=== PATIENT | male | born 1945 | race Caucasian/White ===

== ENCOUNTER 2017-07-09 14:11 | Emergency (ER) | payer MEDICARE, OTHER ==
[2017-07-09] MEDS ORDERED: TETRACAINE HCL 0.5% OPH SOLN 2 ML OS ONE (15:40)
--- NOTE | 2017-07-09 16:20 | ER Document Report ---
ED Eye Complaint - General Chief Complaint: Redness of Eye Stated Complaint: LEFT EYE PAIN Time Seen by Provider: 07/09/17 15:15 Mode of Arrival: Ambulatory Information source: Patient Notes: 71-year-old male presents to ED for redness to the left eye with discomfort in the left eye. He states that started yesterday. Hurts when he blinks his eye TRAVEL OUTSIDE OF THE [place] IN LAST 30 DAYS: No - HPI Onset: Yesterday Eye location: Left Injury: No Occurred at: Home Quality of pain: Burning Severity: Mild Pain Level: 1 Associated symptoms: Burning - Slight, Foreign body sensation - Related Data Allergies/Adverse Reactions: morphine Allergy (Verified 07/09/17 14:12) Past Medical History - General Information source: Patient - Social History Smoking Status: Former Smoker Cigarette use (# per day): No Chew tobacco use (# tins/day): No Smoking Education Provided: No Frequency of alcohol use: None Drug Abuse: None Lives with: Family Family History: DM, Hypertension Patient has suicidal ideation: No Patient has homicidal ideation: No - Past Medical History Cardiac Medical History: Reports: Hx Hypertension Pulmonary Medical History: Reports: None EENT Medical History: Reports: None Endocrine Medical History: Reports: Hx Diabetes Mellitus Type 2 Renal/ Medical History: Reports: None Malignancy Medical History: Reports Other - throat GI Medical History: Reports: None Musculoskeltal Medical History: Reports Hx Arthritis Psychiatric Medical History: Reports: Hx Bipolar Disorder - ptsd, Hx Post Traumatic Stress Disorder Traumatic Medical History: Reports: None Infectious Medical History: Reports: None Past Surgical History: Reports: Hx Cholecystectomy - Immunizations Immunizations up to date: Yes Review of Systems - Review of Systems Constitutional: No symptoms reported EENT: Eye pain - red swollen Cardiovascular: No symptoms reported Respiratory: No symptoms reported Gastrointestinal: No symptoms reported Genitourinary: No symptoms reported Male Genitourinary: No symptoms reported Musculoskeletal: No symptoms reported Skin: No symptoms reported Hematologic/Lymphatic: No symptoms reported Neurological/Psychological: No symptoms reported -: Yes All other systems reviewed and negative Physical Exam - Vital signs Vitals: Temp Pulse Resp BP Pulse Ox 98.5 F 64 16 144/68 H 98 07/09/17 14:19 07/09/17 14:19 07/09/17 14:19 07/09/17 14:19 07/09/17 14:19 Interpretation: Normal - General General appearance: Appears well, Alert - HEENT Head: Normocephalic, Atraumatic Eyes: Normal Conjunctiva: Injected. No: Purulent discharge Cornea: Corneal abrasion, Flourescein stain uptake Eyelashes: Normal. No: Matted, Singed Pupils: PERRL Ears: Normal External canal: Normal Tympanic membrane: Normal Hearing loss: Left Sinus: Normal Nasal: Normal Mouth/Lips: Normal Mucous membranes: Normal Pharynx: Normal Neck: Normal - Respiratory Respiratory status: No respiratory distress Chest status: Nontender Breath sounds: Normal Chest palpation: Normal - Cardiovascular Rhythm: Regular Heart sounds: Normal auscultation Murmur: No - Abdominal Inspection: Normal Distension: No distension Bowel sounds: Normal Tenderness: Nontender Organomegaly: No organomegaly - Back Back: Normal, Nontender - Extremities General upper extremity: Normal inspection, Nontender, Normal color, Normal ROM , Normal temperature General lower extremity: Normal inspection, Nontender, Normal color, Normal ROM , Normal temperature, Normal weight bearing. No: Bina's sign - Neurological Neuro grossly intact: Yes Cognition: Normal Orientation: AAOx4 Mark Coma Scale Eye Opening: Spontaneous [place] Coma Scale Verbal: Oriented Mark Coma Scale Motor: Obeys Commands [place] Coma Scale Total: 15 Speech: Normal Motor strength normal: LUE, RUE, LLE, RLE Sensory: Normal - Psychological Associated symptoms: Normal affect, Normal mood - Skin Skin Temperature: Warm Skin Moisture: Dry Skin Color: Normal Course - Vital Signs Vital signs: Temp Pulse Resp BP Pulse Ox 97.9 F 59 L 16 152/79 H 99 07/09/17 16:56 07/09/17 16:56 07/09/17 14:19 07/09/17 16:56 07/09/17 16:56 Discharge - Discharge Clinical Impression: Corneal abrasion Qualifiers: Encounter type: initial encounter Laterality: left Qualified Code(s): S05.02XA - Injury of conjunctiva and corneal abrasion without foreign body, left eye, initial encounter Condition: Stable Disposition: HOME, SELF-CARE Additional Instructions: Corneal Abrasion You have a corneal abrasion, a scratch on the surface of the eye. The pain of a corneal abrasion feels like a sharp particle in the eye. Usually, antibiotics are placed in the eye to prevent infection. Occasionally, medication will be placed in the eye to dilate the pupil. This is done to relieve some of your discomfort and is only temporary. Pain medication may be required. Don't drive or operate machinery until you have the use of both your eyes. The abrasion usually is healed in one or two days. A follow-up examination to confirm healing is recommended. Call the doctor or return at once if you develop severe pain, decreasing vision, eye swelling, or purulent drainage. EYEDROP USE: Eyedrops are most easily applied by pulling down on the cheek just below the lower eyelid. The lower lid will pop out to form a pouch into which you can drop the medicine. A small brief sting is not unusual, especially if the eye is reddened and irritated already. Use the drops exactly as recommended. You should see the doctor at once if there is a decrease in vision, swelling of the eye, or an increase in discomfort. ANTIBIOTIC THERAPY: You have been given an antibiotic prescription. It's important that you take all the medication, unless instructed otherwise by your physician. Failure to complete the entire course can result in relapse of your condition. Common side effects of antibiotics include nausea, intestinal cramping, or diarrhea. Women may develop vaginal yeast infections, and babies can get yeast (thrush) in the mouth following the use of antibiotics. Contact your physician if you develop significant side effects from this medication. Allergy to this antibiotic can result in hives, wheezing, faintness, or itching. If symptoms of allergy occur, stop the medication and call the doctor. FOLLOW-UP CARE: If you have been referred to a physician for follow-up care, call the physician s office for an appointment as you were instructed or within the next two days. If you experience worsening or a significant change in your symptoms, notify the physician immediately or return to the Emergency Department at any time for re-evaluation. Forms: Elevated Blood Pressure Referrals: LUDWIN SCHAEFER MD [ACTIVE STAFF] - Follow up as needed
[2017-07-09] MEDS ORDERED: POLYMYXIN B SULFATE/TMP OPH SOLN (10 ML/ER DISP) OP SCH (16:21)
[2017-07-09] MEDS ORDERED: POLYMYXIN B SULFATE/TMP OPH SOLN 10 ML ONE (16:47)
[2017-07-09 17:01] VITALS: BP 152/79
== END 2017-07-09 17:01 | disposition home or self-care (01) ==
LOC: ER 14:11
DX: S05.02XA Injury of conjunctiva and corneal abrasion without foreign body, left eye, initial encounter (principal); X58.XXXA Exposure to other specified factors, initial encounter; I10 Essential (primary) hypertension; E11.9 Type 2 diabetes mellitus without complications; Z87.891 Personal history of nicotine dependence; Z88.5 Allergy status to narcotic agent
CPT/HCPCS: 99283; J3490

== ENCOUNTER 2017-12-01 18:51 | Emergency (ER) | payer MEDICARE ==
[2017-12-01] MEDS ORDERED: IPRATROPIUM/ALBUTEROL 0.5-2.5 MG/3 ML AMPUL NEB ONE (19:20)
[2017-12-01 19:22] VITALS: BP 136/62
--- NOTE | 2017-12-01 19:24 | ER Document Report ---
ED Medical Screen (RME) - General Chief Complaint: Cough Stated Complaint: CONGESTION/COUGH Time Seen by Provider: 12/01/17 19:20 Mode of Arrival: Ambulatory Information source: Patient Notes: 72-year-old male with a history of Type2 DM, tongue cancer, bipolar disorder presents with complaint of cough, nasal congestion and wheezing for 1 week. is here with similar symptoms. He denies any fever, chills, shortness of breath, chest pain. Have greeted and performed a rapid initial assessment of this patient a comprehensive ED assessment and evaluation of the patient, analysis of test results and completion of medical decision making will be conducted by an additional ED provider. PHYSICAL EXAMINATION: GENERAL: Well-appearing, well-nourished and in no acute distress. LUNGS: No respiratory distress, no wheezing Musculoskeletal: Normal range of motion NEUROLOGICAL: Normal speech, normal gait. PSYCH: Normal mood, normal affect. SKIN: Warm, Dry, normal turgor, no rashes or lesions noted. TRAVEL OUTSIDE OF THE [place] IN LAST 30 DAYS: No - HPI Onset: Last week Onset/Duration: Gradual, Persistent Quality of pain: No pain Associated Symptoms: Cough (productive), Sinus pain/drainage Exacerbated by: Denies Relieved by: Denies Similar symptoms previously: Yes Recently seen / treated by doctor: Yes - Related Data Smoking: Quit greater than 1 year Frequency of alcohol use: None Drug Abuse: None Allergies/Adverse Reactions: morphine Allergy (Verified 12/01/17 18:55) Past Medical History - Social History Chew tobacco use (# tins/day): No Frequency of alcohol use: None Drug Abuse: None - Past Medical History Cardiac Medical History: Reports: Hx Hypertension Endocrine Medical History: Reports: Hx Diabetes Mellitus Type 2 Renal/ Medical History: Denies: Hx Peritoneal Dialysis Musculoskeltal Medical History: Reports Hx Arthritis Psychiatric Medical History: Reports: Hx Bipolar Disorder - ptsd, Hx Post Traumatic Stress Disorder Past Surgical History: Reports: Hx Cholecystectomy - Immunizations Immunizations up to date: Yes Physical Exam - Vital signs Vitals: Temp Pulse Resp BP Pulse Ox 98.4 F 81 16 138/88 H 96 12/01/17 19:07 12/01/17 19:07 12/01/17 19:07 12/01/17 19:07 12/01/17 19:07 Course - Vital Signs Vital signs: Temp Pulse Resp BP Pulse Ox 98.4 F 81 16 138/88 H 96 12/01/17 19:07 12/01/17 19:07 12/01/17 19:07 12/01/17 19:07 12/01/17 19:07
--- NOTE | 2017-12-01 19:39 | RADIOLOGY REPORT (SQ) ---
EXAM DESCRIPTION: CHEST 2 VIEWS COMPLETED DATE/TIME: 12/01/2017 7:31 pm REASON FOR STUDY: cough wheezing COMPARISON: None. EXAM PARAMETERS: NUMBER OF VIEWS: two views TECHNIQUE: Digital Frontal and Lateral radiographic views of the chest acquired. RADIATION DOSE: NA LIMITATIONS: none FINDINGS: LUNGS AND PLEURA: No opacities, masses or pneumothorax. No pleural effusion. MEDIASTINUM AND HILAR STRUCTURES: No masses or contour abnormalities. HEART AND VASCULAR STRUCTURES: Heart normal size. No evidence for failure. BONES: No acute findings. HARDWARE: None in the chest. OTHER: No other significant finding. IMPRESSION: NO ACUTE RADIOGRAPHIC FINDING IN THE CHEST. TECHNICAL DOCUMENTATION: JOB ID: [id number] [employer]- All Rights Reserved Reading location - IP/workstation name: [email or web address]
--- NOTE | 2017-12-01 20:05 | ER Document Report ---
ED Respiratory Problem - General Chief Complaint: Cough Stated Complaint: CONGESTION/COUGH Time Seen by Provider: 12/01/17 19:20 Mode of Arrival: Ambulatory Notes: 72-year-old male with a history of Type2 DM, tongue cancer, bipolar disorder, bronchitis, presents with complaint of cough, nasal congestion and wheezing for 1 week. is here with similar symptoms. He usually has these symptoms about once a year. Denies fevers, chest pain, leg swelling, nausea or vomiting. TRAVEL OUTSIDE OF THE [place] IN LAST 30 DAYS: No - Related Data Allergies/Adverse Reactions: morphine Allergy (Verified 12/01/17 18:55) Past Medical History - General Information source: Patient - Social History Smoking Status: Former Smoker Chew tobacco use (# tins/day): No Frequency of alcohol use: None Drug Abuse: None Family History: DM, Hypertension Patient has suicidal ideation: No Patient has homicidal ideation: No - Past Medical History Cardiac Medical History: Reports: Hx Hypertension Endocrine Medical History: Reports: Hx Diabetes Mellitus Type 2 Renal/ Medical History: Denies: Hx Peritoneal Dialysis Musculoskeltal Medical History: Reports Hx Arthritis Psychiatric Medical History: Reports: Hx Bipolar Disorder - ptsd, Hx Post Traumatic Stress Disorder Past Surgical History: Reports: Hx Cholecystectomy - Immunizations Immunizations up to date: Yes Review of Systems - Review of Systems Notes: REVIEW OF SYSTEMS: CONSTITUTIONAL: -fevers, -chills EENT: -eye pain, -difficulty swallowing, +nasal congestion CARDIOVASCULAR: -chest pain, -syncope. RESPIRATORY: +cough, -SOB GASTROINTESTINAL: -abdominal pain, -nausea, -vomiting, -diarrhea GENITOURINARY: -dysuria, -hematuria MUSCULOSKELETAL: -back pain, -neck pain SKIN: -rash or skin lesions. HEMATOLOGIC: -easy bruising or bleeding. LYMPHATIC: -swollen, enlarged glands. NEUROLOGICAL: -altered mental status or loss of consciousness, -headache, - neurologic symptoms PSYCHIATRIC: -anxiety, -depression. ALL OTHER SYSTEMS REVIEWED AND NEGATIVE. Physical Exam - Vital signs Vitals: Temp Pulse Resp BP Pulse Ox 98.4 F 81 16 138/88 H 96 12/01/17 19:07 12/01/17 19:07 12/01/17 19:07 12/01/17 19:07 12/01/17 19:07 - Notes Notes: PHYSICAL EXAMINATION: GENERAL: Well-appearing, well-nourished and in no acute distress. HEAD: Atraumatic, normocephalic. EYES: Pupils equal round and reactive to light, extraocular movements intact, sclera anicteric, conjunctiva are normal. ENT: Swollen nasal turbinates with clear drainage, cobblestoning of posterior pharynx, nares patent, oropharynx clear without exudates. Moist mucous membranes. NECK: Normal range of motion, supple without lymphadenopathy LUNGS: Breath sounds clear to auscultation bilaterally and equal. Mild wheezing. HEART: Regular rate and rhythm without murmurs ABDOMEN: Soft, nontender, normoactive bowel sounds. No guarding, no rebound. No masses appreciated. EXTREMITIES: Normal range of motion, no pitting or edema. No cyanosis. NEUROLOGICAL: Cranial nerves grossly intact. Normal speech, normal gait. Normal sensory and motor exams. PSYCH: Normal mood, normal affect. SKIN: Warm, Dry, normal turgor, no rashes or lesions noted. Course - Re-evaluation Re-evalutation: Patient appears very well. Suspect his symptoms are related to allergic rhinitis and bronchitis. No signs of pneumonia on chest x-ray. Will discharge patient home with Flonase, Zyrtec instructions to use his albuterol with follow- up at his primary care physician. - Vital Signs Vital signs: Temp Pulse Resp BP Pulse Ox 98.7 F 66 14 136/62 H 97 12/01/17 19:12 12/01/17 19:12 12/01/17 19:12 12/01/17 19:12 12/01/17 19:12 - Diagnostic Test Radiology reviewed: Image reviewed, Reports reviewed Radiology results interpreted by me: CXR: NAD Discharge - Discharge Clinical Impression: Bronchitis Allergic rhinitis Qualifiers: Allergic rhinitis trigger: unspecified Allergic rhinitis seasonality: seasonal Qualified Code(s): J30.2 - Other seasonal allergic rhinitis Condition: Stable Disposition: HOME, SELF-CARE Additional Instructions: BRONCHITIS: You have acute bronchitis. This disease is an infection or inflammation of the air passageways in your lungs. Symptoms usually include cough, low grade fever, shortness of breath, and wheezing. The cough usually persists for a couple of weeks. Most cases of bronchitis get better without antibiotics. We prescribe antibiotics when we believe bacteria are damaging your airways, or if there's high risk the bronchitis will worsen into pneumonia. Increase your fluid intake. A cool mist humidifier may make your lungs more comfortable. An expectorant (cough medicine that loosens phlegm) can help. If you smoke, STOP!!! Recovery from bronchitis can be somewhat slow, but you should see improvement within a day or two. Repeated episodes of bronchitis may result in lung damage -- for example, chronic bronchitis, recurrent pneumonias, or emphysema. Call the doctor if you develop increasing fever, shortness of breath, chest pain, bloody sputum, or otherwise worsen. If you have not improved at all after several days, contact the physician. STEROID MEDICATION: You have been given an injection of or oral medicine of the cortisone/ steroid class. This medication is used to control inflammation or allergy. Dev t is usually only given for a short period of time, until the acute process subsides. There are usually no side effects from short-term use of cortisone-like medications. Some persons feel an increased sense of well-being and are not sleepy at bedtime. Long-term use of cortisone medications is best avoided, unless required for a severe condition. If your condition does not remit, or relapses after the course of corticosteroid medication, you should consult your physician. USE OF ACETAMINOPHEN (Tylenol): Acetaminophen may be taken for pain relief or fever control. It's much safer than aspirin, offering a wider range of "safe" dosages. It is safe during . Some brand names are Tylenol, Panadol, Datril, Anacin 3, Tempra, and Liquiprin. Acetaminophen can be repeated every four hours. The following are maximum recommended dosages: >89 pounds or adults 650 mg to 900 mg Acetaminophen can be repeated every four hours. Maximum dose not to exceed 4000 mg a day. SMOKING: If you smoke, you should stop smoking. The tar and chemicals in cigarette smoke are harmful. Smoking has been shown to cause: emphysema chronic bronchitis lung cancer mouth and throat cancer stomach and pancreas cancer premature aging defects In addition, smoking increases ear and lung infections in children of smokers. FOLLOW-UP CARE: If you have been referred to a physician for follow-up care, call the physician s office for an appointment as you were instructed or within the next two days. If you experience worsening or a significant change in your symptoms, notify the physician immediately or return to the Emergency Department at any time for re-evaluation. Prescriptions: Fluticasone Propionate [Flonase Nasal [place] 50 Mcg/[place] 16 gm] 1 spray NASL Q12 #1 inhaler Forms: Elevated Blood Pressure Referrals: SAMINA RODRIGUEZ MD [ACTIVE STAFF] - Follow up as needed
[2017-12-01] MEDS ORDERED: DEXAMETHASONE SOD PHOS INJ 10 MG/1 ML VIAL IM ONE (20:53)
[2017-12-01] MEDS ORDERED: CETIRIZINE 10 MG TABLET PO ONE (20:53)
== END 2017-12-01 21:27 | disposition home or self-care (01) ==
LOC: ER 18:51
DX: J40 Bronchitis, not specified as acute or chronic (principal); J30.2 Other seasonal allergic rhinitis; R05 Cough; E11.9 Type 2 diabetes mellitus without complications; R09.81 Nasal congestion; R06.2 Wheezing; I10 Essential (primary) hypertension; Z87.891 Personal history of nicotine dependence; Z85.810 Personal history of malignant neoplasm of tongue; Z88.5 Allergy status to narcotic agent
CPT/HCPCS: 94640; 99283; 96372; 71046; J1100; A9270 ×2; J7620

== ENCOUNTER 2018-02-04 13:38 | Observation (INO) | payer MEDICARE ==
--- NOTE | 2018-02-04 15:01 | ER Document Report ---
ED Medical Screen (RME) - General Chief Complaint: S/S of Possible Stroke Stated Complaint: POSSIBLE STROKE Time Seen by Provider: 02/04/18 14:56 TRAVEL OUTSIDE OF THE [place] IN LAST 30 DAYS: No - HPI Notes: 02/04/18 14:59 Patient coming in for left-sided weakness ongoing for greater than left wrist. Patient states this morning got up could not stand therefore felt. Patient does have history of tongue cancer. - Related Data Allergies/Adverse Reactions: morphine Allergy (Verified 02/04/18 13:39) Past Medical History - Past Medical History Cardiac Medical History: Reports: Hx Hypertension Endocrine Medical History: Reports: Hx Diabetes Mellitus Type 2 Renal/ Medical History: Denies: Hx Peritoneal Dialysis Musculoskeltal Medical History: Reports Hx Arthritis Psychiatric Medical History: Reports: Hx Bipolar Disorder - ptsd, Hx Post Traumatic Stress Disorder Past Surgical History: Reports: Hx Cholecystectomy - Immunizations Immunizations up to date: Yes Review of Systems - Review of Systems Constitutional: Weakness Physical Exam - Vital signs Vitals: Temp Pulse Resp BP Pulse Ox 98.3 F 79 20 116/63 98 02/04/18 13:55 02/04/18 13:55 02/04/18 13:55 02/04/18 13:55 02/04/18 13:55 - Extremities Notes: Patient with symmetrical smile in triage patient with slight weakness on the 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
--- NOTE | 2018-02-04 15:31 | RADIOLOGY REPORT (SQ) ---
EXAM DESCRIPTION: CT HEAD WITHOUT COMPLETED DATE/TIME: 02/04/2018 3:21 pm REASON FOR STUDY: left up ext weakness >24 COMPARISON: None. TECHNIQUE: Axial images acquired through the brain without intravenous contrast. Images reviewed wi th bone, brain and subdural windows. Images stored on PACS. All CT scanners at this facility use dose modulation, iterative reconstruction, and/or weight based d osing when appropriate to reduce radiation dose to as low as reasonably achievable (ALARA). [facility]: Dose Right [facility]: CareDose [facility]: Dose Right [facility]: Teradose 4D [facility]: [employer] RADIATION DOSE: CT Rad equipment meets quality standard of care and radiation dose reduction techniq ues were employed. CTDIvol: 53.2 mGy. DLP: 911 mGy-cm.mGy. LIMITATIONS: None. FINDINGS: VENTRICLES: Prominent. CEREBRUM: No mass effect. No hemorrhage. No midline shift. Areas of low density in the white matte r most likely due to chronic micro-vascular ischemic change. No evidence for acute territorial infar ction. CEREBELLUM: No hemorrhage. No alteration of density. No evidence for acute infarction. EXTRAAXIAL SPACES: Age-related involutional change. No fluid collections. ORBITS AND GLOBE: Symmetrical contour of the globes. CALVARIUM: No depressed fracture. PARANASAL SINUSES: No air-fluid level. SOFT TISSUES: No hematoma. IMPRESSION: No acute intracranial hemorrhage or acute territorial infarct. Mild chronic changes of atrophy and microvascular ischemia. EVIDENCE OF ACUTE STROKE: NO. TECHNICAL DOCUMENTATION: JOB ID: [id number] [facility] Quality ID # [id number]: Final reports with documentation of one or more dose reduction techniques (e.g., Au tomated exposure control, adjustment of the mA and/or kV according to patient size, use of iterative reconstruction technique) 2010 [employer]- All Rights Reserved Reading location - IP/workstation name: [email or web address]
--- NOTE | 2018-02-04 15:50 | RADIOLOGY REPORT (SQ) ---
EXAM DESCRIPTION: CHEST SINGLE VIEW COMPLETED DATE/TIME: 02/04/2018 3:32 pm REASON FOR STUDY: weakness COMPARISON: Chest x-ray 12/01/2017. EXAM PARAMETERS: NUMBER OF VIEWS: One view. TECHNIQUE: Single frontal radiographic view of the chest acquired. RADIATION DOSE: NA LIMITATIONS: None. FINDINGS: LUNGS AND PLEURA: There is right perihilar airspace opacity. No sizable pleural effusion or pneumothorax. MEDIASTINUM AND HILAR STRUCTURES: Contour within normal limits. HEART AND VASCULAR STRUCTURES: Heart normal in size. Normal vasculature. BONES: Multilevel degenerative changes are noted within the spine. HARDWARE: None in the chest. IMPRESSION: Right perihilar airspace opacity, may be secondary to pneumonia. Radiographic followup recommended to ensure complete resolution and exclude a different etiology. TECHNICAL DOCUMENTATION: JOB ID: [id number] 2010 [employer]- All Rights Reserved Reading location - IP/workstation name: [email or web address]
[2018-02-04] MEDS ORDERED: CEFTRIAXONE INJ 1000 MG VIAL IV ONE (16:12)
--- NOTE | 2018-02-04 16:16 | ER Document Report ---
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 Patient since then has had left-sided weakness to the left upper extremity. 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 Patient 's family states that he had confusion after this episode yesterday that has gradually started to resolve and return to his normal baseline today. states that he does have some memory issues after treatment of tongue cancer with radiation. Patient's states that his confusion yesterday was not normal for him. Patient additionally has had a cough for the past 2 weeks. Patient was placed on amoxicillin 5 days ago but only took it for 2 days and then refused to take any more. Patient denies any chest pain, back pain headache or any dizzy symptoms at this time. Patient did have an episode of vomiting yesterday when this episode occurred. Patient's last known well was prior to 10 AM yesterday. TRAVEL OUTSIDE OF THE [place] IN LAST 30 DAYS: No - HPI Patient complains to provider of: Falling, Paresthesia - Left upper arm, Weakness - Left hand assistant finance director Onset: Yesterday Awoke with symptoms: No Symptoms are: Constant Duration: Continues in ED Quality of pain: No pain Pain Level: Denies Loss of consciousness: No loss of consciousness Baseline Cognitive: Memory loss Baseline Gait: Walks w/o assistance Alert To: Name/Voice Patient Orientation: Person, Place, Time, Events New weakness: LUE Altered sensation: LUE Vision problem/glaucoma: No Associated symptoms: Dizzy - Now resolved. denies: Chest pain, Back pain, Involuntary movements, Lightheadedness, Vomiting Similar symptoms previously: No Recently seen / treated by doctor: No - Related Data Allergies/Adverse Reactions: morphine Allergy (Verified 02/04/18 13:39) Past Medical History - General Information source: Patient - Social History Smoking Status: Former Smoker Chew tobacco use (# tins/day): No Frequency of alcohol use: Occasional Drug Abuse: None Lives with: Family Family History: DM, Hypertension Patient has suicidal ideation: No Patient has homicidal ideation: No - Past Medical History Cardiac Medical History: Reports: Hx Hypertension Endocrine Medical History: Reports: Hx Diabetes Mellitus Type 2 Renal/ Medical History: Denies: Hx Peritoneal Dialysis Malignancy Medical History: Reports Other - Tongue cancer Musculoskeletal Medical History: Reports Hx Arthritis Psychiatric Medical History: Reports: Hx Bipolar Disorder - ptsd, Hx Post Traumatic Stress Disorder Past Surgical History: Reports: Hx Abdominal Surgery - G TUBE, Hx Cholecystectomy - Immunizations Immunizations up to date: Yes Review of Systems - Review of Systems Constitutional: Recent illness - Cough 2 weeks. denies: Fever EENT: No symptoms reported Cardiovascular: Dizziness - Episode of dizziness yesterday. denies: Chest pain Respiratory: Cough. denies: Short of breath Gastrointestinal: Vomiting - 1 episode yesterday. denies: Abdominal pain, Diarrhea Genitourinary: No symptoms reported Male Genitourinary: No symptoms reported Musculoskeletal: No symptoms reported. denies: Back pain Skin: No symptoms reported Hematologic/Lymphatic: No symptoms reported Neurological/Psychological: Confusion - Episode of confusion that gradually improved today, Weakness - Left assistant finance director, Numbness - Left upper extremity Physical Exam - Vital signs Vitals: Temp Pulse Resp BP Pulse Ox 98.3 F 79 20 116/63 98 02/04/18 13:55 02/04/18 13:55 02/04/18 13:55 02/04/18 13:55 02/04/18 13:55 - General General appearance: Appears well, Alert In distress: None - HEENT Head: Normocephalic, Atraumatic Eyes: Normal Conjunctiva: Normal Extraocular movements intact: Yes Nasal: Normal Mouth/Lips: Other - edentulous Pharynx: Normal Neck: Normal, Supple. No: Lymphadenopathy - Respiratory Respiratory status: No respiratory distress Chest status: Nontender Breath sounds: Nonproductive cough. No: Rales, Rhonchi, Stridor, Wheezing Chest palpation: Normal - Cardiovascular Rhythm: Regular Heart sounds: S1 appreciated, S2 appreciated - Abdominal Inspection: Normal Distension: No distension Bowel sounds: Normal Tenderness: Nontender Organomegaly: No organomegaly - Back Back: Normal, Nontender. No: CVA tenderness, Vertebra tenderness - Extremities General upper extremity: Normal inspection, Normal ROM General lower extremity: Normal inspection, Normal ROM - Neurological Neuro grossly intact: Yes Cognition: Other - occasional memory lapses [place] Coma Scale Eye Opening: Spontaneous Mark Coma Scale Verbal: Oriented Mark Coma Scale Motor: Obeys Commands Mark Coma Scale Total: 15 Speech: Normal. No: Dysarthria Cranial nerves: Normal. No: Facial palsy Cerebellar coordination: Heel-che, Finger-nose rhombey Motor strength normal: LUE, RUE, LLE, RLE Additional motor exam normals: No: Equal assistant finance director - left assistant finance director weak Sensory: Altered light touch - LUE - Psychological Associated symptoms: Normal affect, Normal mood - Skin Skin Temperature: Warm Skin Moisture: Dry Skin Color: Other - abrasion to LUE Course - Re-evaluation Re-evalutation: 02/04/18 17:[address] Richards guarding patient presentation and diagnostic evaluation. Recommends placing patient on Rocephin and azithromycin versus Levaquin given concern about risk with fluoroquinolones. Agrees with plan for admission to further evaluate for possible CVA. 02/04/18 17:53 Consulted with CINTHIA Espinoza who agrees to accept patient for admission to IMCU as an observation to Dr. Bethea. - Vital Signs Vital signs: Temp Pulse Resp BP Pulse Ox 98.3 F 79 20 116/63 98 02/04/18 13:55 02/04/18 13:55 02/04/18 13:55 02/04/18 13:55 02/04/18 13:55 - Laboratory Result Diagrams: 02/04/18 15:27 02/04/18 15:27 Laboratory results interpreted by me: 02/04/18 18:32 Labs- Entire Visit 02/04/18 02/04/18 02/04/18 15:27 15:27 15:27 WBC 17.5 H RBC 3.99 L Hgb 12.7 L Hct 36.6 L MCV 92 MCH 31.7 MCHC 34.6 RDW 14.2 H Plt Count 237 Seg Neutrophils % 88.3 H Lymphocytes % 5.5 L Monocytes % 5.1 Eosinophils % 0.9 Basophils % 0.2 Absolute Neutrophils 15.5 H Absolute Lymphocytes 1.0 Absolute Monocytes 0.9 Absolute Eosinophils 0.2 Absolute Basophils 0.0 PT 15.1 INR 1.13 Sodium 143.7 Potassium 3.8 Chloride 103 Carbon Dioxide 23 Anion Gap 18 BUN 16 Creatinine 1.11 Est GFR ( Amer) > 60 Est GFR (Non-Af Amer) > 60 Glucose 219 H Calcium 9.5 Total Bilirubin 1.4 H Direct Bilirubin 0.5 H Neonat Total Bilirubin Not Reportable Neonat Direct Bilirubin Not Reportable Neonat Indirect Bili Not Reportable AST 18 ALT 19 L Alkaline Phosphatase 134 H Creatine Kinase 30 L CK-MB (CK-2) Troponin I Total Protein 8.1 Albumin 4.2 02/04/18 15:27 WBC RBC Hgb Hct MCV MCH MCHC RDW Plt Count Seg Neutrophils % Lymphocytes % Monocytes % Eosinophils % Basophils % Absolute Neutrophils Absolute Lymphocytes Absolute Monocytes Absolute Eosinophils Absolute Basophils PT INR Sodium Potassium Chloride Carbon Dioxide Anion Gap BUN Creatinine Est GFR ( Amer) Est GFR (Non-Af Amer) Glucose Calcium Total Bilirubin Direct Bilirubin Neonat Total Bilirubin Neonat Direct Bilirubin Neonat Indirect Bili AST ALT Alkaline Phosphatase Creatine Kinase CK-MB (CK-2) 0.37 Troponin I < 0.012 Total Protein Albumin - Diagnostic Test Radiology reviewed: Reports reviewed ED [employer]/Exc Criteria - Inclusion Criteria: 1: Patient presented to ED within 3 hours of acute ischemic stroke symptom onset ? -: No 2: Did baseline CT exclude intracranial hemorrhage and/or other risk factors? -: Yes 3: Is the age of the patient 18 years of age or greater? -: Yes : If any of the above questions are answered "NO" then stop, patient is not a candidate for Alteplase, : If all of the above questions are answered "YES" then continue with Exclusion Criteria. - Exclusion Criteria: 1: Is there evidence of intracranial hemorrhage on baseline CT? 2: Is there suspicion of subarachnoid hemorrhage (even if CT negative)? 3: Is there a history of serious head trauma, recent previous stroke or AL within 3 months? 4: Does the patient have a clinical presentation consistent with AL or post-AL pericarditis? 5: Is there history of intracranial hemorrhage? 6: On repeated measurement is Systolic BP greater than 185mmHg or Diastolic BP greater that 110 mmHg and is aggressive treatment needed to reduce blood pressure to these limits (e.g. constant infusion of an anti-hypertensive)? 7: Did the patient awake with stroke symptoms? 8: Has the patient had a lumbar puncture or an arterial puncture at a non- compressile site within 7 days? 9: With in the last 14 days did the patient have surgery or major trauma? 10: Is the patient or less than 2 weeks? 11: Was there any active bleeding or acute trauma? 12: Does the patient have intracranial neoplasm, arteriovenous malformation or aneurysm? 13: Does the patient have abnormal glucose (less than 50 or greater than 400mg/ dl)? Record glucose in Comment. 14: Patient has rapidly improving symptoms at the time Alteplase is to be Administered. 15: Does the patient have any risks for bleeding, including but not limited to: a.: Current use of Coumadin with PT greater than 15 seconds or INR greater than 1.7. b.: Current use of Pradaxa (Dabigatran). c.: Heparin administereed within the past 48 hours and PTT elevated. d.: Platelet count less than 100,000/mm. e.: Major surgery or serious trauma within 14 days. f.: Gastrointestinal or gynecological urinary bleeding within 14 days. g.: Myocardial Infarction (AL) within 3 months. : If the answer to any of the above questions is "YES" then stop, the patient is not a candidate for Alteplase. : If the answer to all of the above questions is "NO" then the patient may be eligible for the Administration of Alteplase. : If the patient is noted to have seizure activity at onset of Stroke symptoms; Consult Neurologist for further evaluation. - The patient is: -: Included and is eligible to receive Alteplase. *Initiate bed placement at higher level of care* Reviewed risks & benefits of thrombolytic therapy: I have reviewed the risks and benefits of thrombolytic therapy with the patient and/or his/her family. -: Excluded and not eligible to receive Alteplase for the above exclusions. -: Excluded and not eligible to receive Alteplase for other reasons (specify in comments): - Diagnosis of TIA: -: Patient presented with transient symptoms that are now resolved and no other neurologic findings are currently present. List symptoms in comments. -: Patient is NOT a candidate for tPA. -: ____(put name in comment) has been consulted for admission and continued evaluation of risk factor assessment. ED NIH Stroke Scale - NIH Stroke Scale *: 1. NIH scale should be completed with appropriate accompanying assessment tools. *: 2. The NIH should reflect what the patient is capable of doing and should not be coached by the clinician. 1a. Level of Consciousness: 0=Alert;keenly responsive -: 1=Drowsy -: 2=Obtunded -: 3=Coma/unresponsive or reflex to noxious stimuli. 1a. Responses: 0 1b. Orientation Questions: a. What month is it? -: b. How old are you? -: 0=Answers both questions correctly. -: 1=Answers one question correctly or patient is intubated or has orotracheal trauma. -: 2=Answers neither question correctly. 1b. Responses: 0 1c. Response to commands: a. Open and close eyes? -: b. Medical Center Manager and release hand? -: Credit is given despite weakness. Demonstration of task is permitted. Substitute command if hands cannot be used. -: 0=Performs both tasks correctly -: 1=Performs one task correctly -: 2=Performs neither task correctly 1c. Responses: 0 2. Gaze: Establish eye contact and instruct patient to "Follow my finger" -: 0=Normal -: 1=Partial gaze palsy. Gaze is abnormal in one or both eyes, but where forced deviation or total gaze paresis is not present. -: 2=Forced deviation or total gaze paresis. 2. Responses: 0 3. Visual Hinds: Sees fingers in all four quadrants. -: 0=No visual loss. -: 1=Partial hemianopsia. -: 2=Complete hemianopsia. -: 3=Bilateral hemianopsia (including Cortical blindness) 3. Responses: 0 4. Facial Movement: Instruct patient to: -: a. Show me your teeth -: b. Raise your eyebrows -: c. Close your eyes -: d. Smile -: 0=Normal symmetrical movement -: 1=Minor paralysis (flattened nasolabial fold, asymmetry on smiling). -: 2=Partial paralysis (total or near total paralysis of lower face). -: 3=Complete paralysis of upper and lower face 4. Responses: 0 5. Motor functions (left arm): Alternate sides and extend each arm with palms down (90 degrees if sitting or 45 degrees for supine). -: 0=No drift;limb holds for full 10 seconds. -: 1=Drift; limb holds but drifts down before full 10 seconds, but does not hit bed. -: 2=Some effort against gravity; limb cannot get to or maintain position. -: 3=No effort against gravity; limb falls. -: 4=No movement. -: UN=Amputation, joint fusion, explain in comments. 5. Responses (left arm): 0 5. Motor Functions (right arm): Alternate sides and extend each arm with palms down (90 degrees if sitting or 45 degrees for supine). -: 0=No drift;limb holds for full 10 seconds. -: 1=Drift; limb holds but drifts down before full 10 seconds, but does not hit bed. -: 2=Some effort against gravity; limb cannot get to or maintain position. -: 3=No effort against gravity; limb falls. -: 4=No movement. -: UN=Amputation, joint fusion, explain in comments. 5. Responses (right arm): 0 6. Motor Functions (left leg): With patient lying supine, alternate sides and extend each leg (30 degrees always while supine). -: 0=No drift, leg holds position for full 5 seconds -: 1=Drift; leg falls before full 5 seconds but does not hit bed. -: 2=Some effort against gravity, leg falls to bed but some effort against gravity. -: 3=No effort against gravity, leg falls to bed immediately. -: 4=No movement. -: UN=Amputation, joint fusion; explain in comments. 6. Responses (left leg): 0 6. Motor Functions (right leg): With patient lying supine, alternate sides and extend each leg (30 degrees always while supine). -: 0=No drift, leg holds position for full 5 seconds -: 1=Drift; leg falls before full 5 seconds but does not hit bed. -: 2=Some effort against gravity, leg falls to bed but some effort against gravity. -: 3=No effort against gravity, leg falls to bed immediately. -: 4=No movement. -: UN=Amputation, joint fusion; explain in comments. 6. Responses (right leg): 0 7. Limb Ataxia: With eyes open instruct patient to: -: a. "Touch your finger to your nose". -: b. "Touch your heel to your che" -: 0=Absent -: 1=Present in one limb. -: 2=Present in two limbs. -: UN=Amputation or joint fusion; explain in comments. 7. Responses: 0 8. Sensory: Test sensation using pinprick or noxious stimuli. Test as many body parts as possible. -: 0=Normal;no sensory loss -: 1=Mile to moderate sensory loss (patient feels pin prick but is less sharp on affected side). -: 2=Severe or total sensory loss. 8. Responses: 1 9. Best Language: Instruct patient to: -: a. "Describe what you see in this picture." -: b. "Name the items in this picture." -: c. "Read these sentences." -: 0=No aphasia, normal -: 1=Mild to moderate aphasia. -: 2=Severe aphasia -: 3=Mute, global aphasia, no usable speech or auditory comprehension. 9. Responses: 0 10. Articulation, Dysarthia: Instruct patient to: -: "Read these words" or "Repeat these words" -: 0=Normal -: 1=Mild to moderate; patient may slur some words but can be understood without difficulty. -: 2=Severe; patients speech so slurred as to be unintelligible in the absence of dysphasia. -: UN=Intubated or other physical barrier, explain in comments. 10. Responses: 0 11. Extinction or inattention: 0=No abnormality -: 1= Visual, tactile, auditory, spatial, or personal inattention or extinction to bilateral simulation in one or the sensory modalities. -: 2=Profound zarina-inattention or zarina-inattention to more than one modality; does not recognize own hand. 11. 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
[2018-02-04 16:22] LABS: ABSOLUTE EOSINOPHILS # (AUTO) 0.2 10^3/uL (0.0-0.6); ABSOLUTE MONOCYTES (AUTO) 0.9 10^3/uL (0.1-1.4); ABSOLUTE NEUT (AUTO) 15.5 10^3/uL (1.7-8.2); BASOPHILS % (AUTO) 0.2 % (0-2); EOSINOPHILS % (AUTO) 0.9 % (0-6); HEMATOCRIT 36.6 % (37.9-51.0); HEMOGLOBIN 12.7 g/dL (13.5-17.0); LYMPHOCYTES % (AUTO) 5.5 % (13-45); MEAN CORPUSCULAR HEMOGLOBIN 31.7 pg (27.0-33.4); MEAN CORPUSCULAR HGB CONC 34.6 g/dL (32.0-36.0); MEAN CORPUSCULAR VOLUME 92 fl (80-97); MONOCYTES % (AUTO) 5.1 % (3-13); PLATELET COUNT 237 10^3/uL (150-450); RED BLOOD COUNT 3.99 10^6/uL (4.35-5.55); RED CELL DISTRIBUTION WIDTH 14.2 % (11.5-14.0); SEGMENTED NEUTROPHILS % (AUTO) 88.3 % (42-78); TOTAL CELLS COUNTED % (AUTO) 100 %; WHITE BLOOD COUNT 17.5 10^3/uL (4.0-10.5)
[2018-02-04 16:31] LABS: INTERNATIONAL RATION (INR) 1.13; PROTHROMBIN TIME 15.1 SEC (11.4-15.4)
[2018-02-04 16:45] LABS: ALANINE AMINOTRANSFERASE 19 U/L (21-72); ALBUMIN 4.2 g/dL (3.5-5.0); ALKALINE PHOSPHATASE 134 U/L (38-126); ANION GAP 18 (5-19); ASPARTATE AMINO TRANSFERASE 18 U/L (17-59); BILIRUBIN,DIRECT 0.5 mg/dL (0.0-0.4); BILIRUBIN,TOTAL 1.4 mg/dL (0.2-1.3); BLOOD UREA NITROGEN 16 mg/dL (7-20); CALCIUM 9.5 mg/dL (8.4-10.2); CARBON DIOXIDE 23 mmol/L (22-30); CHLORIDE 103 mmol/L (98-107); CREATINE KINASE 30 U/L (55-170); GLUCOSE 219 mg/dL (75-110); POTASSIUM 3.8 mmol/L (3.6-5.0); SODIUM 143.7 mmol/L (137-145); TOTAL PROTEIN 8.1 g/dL (6.3-8.2)
[2018-02-04] MEDS ORDERED: LEVOFLOXACIN 750 MG/D5W RTU 750 MG/150 ML RTUPB IV ONE (16:50)
[2018-02-04 17:01] LABS: CREATINE KINASE MB 0.37 ng/mL (<4.55)
[2018-02-04 17:03] LABS: TROPONIN I < 0.012 ng/mL
[2018-02-04] MEDS ORDERED: AZITHROMYCIN INJ 500 MG VIAL IV ONE (17:18)
[2018-02-04] MEDS ORDERED: ONDANSETRON 4 MG TAB.RAPDIS PO PRN (18:04)
[2018-02-04] MEDS ORDERED: HYDROCODONE/ACETAMINOPHEN 5-325 MG TABLET PO PRN (18:04)
[2018-02-04] MEDS ORDERED: DOCUSATE SODIUM 100 MG CAPSULE PO PRN (18:04)
[2018-02-04] MEDS ORDERED: ACETAMINOPHEN 325 MG TABLET PO PRN (18:04)
[2018-02-04] MEDS ORDERED: DEXTROSE 40% GEL 15 GM TUBE PO PRN ×2 (18:32)
[2018-02-04] MEDS ORDERED: GLUCAGON,HUMAN RECOMB 1 MG INJ IM PRN (18:32)
[2018-02-04] MEDS ORDERED: DEXTROSE 50%-WATER 25 GM/50 ML DISP.SYRIN IV PRN ×2 (18:32)
--- NOTE | 2018-02-04 18:57 | PDOC H&P ---
History of Present Illness Admission Date/PCP: YUNI SIMENTAL MD Patient complains of: Altered mental status and left arm weakness History of Present Illness: NIDA VELASQUEZ is a 72 year old male with past medical history of essential hypertension, dyslipidemia, diabetes mellitus type 2 on insulin and 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 Patient presents to [facility]'s emergency room this afternoon complaining of episode of dizziness yesterday at 10 AM in which he fell landing on his knee. Patient since then has had left-sided weakness to the left upper extremity. 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 Patient's family states that he had confusion after this episode yesterday that has gradually started to resolve and return to his normal baseline today. states that he does have some memory issues after treatment of tongue cancer with radiation. Patient's states that his confusion yesterday was not normal for him. Patient additionally has had a cough for the past 2 weeks. Patient was placed on amoxicillin 5 days ago but only took it for 2 days and then refused to take any more. Patient denies any chest pain, back pain headache or any dizzy symptoms at this time. Patient did have an episode of vomiting yesterday when this episode occurred. Patient's last known well was prior to 10 AM yesterday. Past Medical History Cardiac Medical History: Reports: Hypertension Pulmonary Medical History: Reports: None EENT Medical History: Reports: None Neurological Medical History: Reports: None Endocrine Medical History: Reports: Diabetes Mellitus Type 2 Renal/ Medical History: Reports: None Malignancy Medical History: Reports: Other - Tongue cancer GI Medical History: Reports: None Musculoskeltal Medical History: Reports: Arthritis Skin Medical History: Reports: None Psychiatric Medical History: Reports: Bipolar Disorder - ptsd, Post Traumatic Stress Disorder Traumatic Medical History: Reports: None Hematology: Reports: None Infectious Medical History: Reports: None Past Surgical History Past Surgical History: Reports: Cholecystectomy, Other - Glossal resection PEG tube insertion Social History Information Source: Patient Lives with: Family Smoking Status: Former Smoker Last Time Smoked: Greater than 20 years ago Frequency of Alcohol Use: Occasional Hx Recreational Drug Use: No Hx Prescription Drug Abuse: No - Advance Directive Resuscitation Status: Full Code Surrogate healthcare decision maker:: Family History Family History: DM, Hypertension Parental Family History Reviewed: Yes Children Family History Reviewed: Yes Sibling(s) Family History Reviewed.: Yes Medication/Allergy Home Medications: Fluticasone Propionate [Flonase Nasal Bonifay 50 Mcg/Bonifay 16 gm] 1 spray NASL Q12 #1 inhaler 12/01/17 Allergies/Adverse Reactions: morphine Allergy (Verified 02/04/18 13:39) Review of Systems Constitutional: PRESENT: chills, fever(s) - Days ago Eyes: ABSENT: visual disturbances Ears: ABSENT: hearing changes Cardiovascular: ABSENT: chest pain, dyspnea on exertion, edema, orthropnea, palpitations Respiratory: ABSENT: cough, hemoptysis Gastrointestinal: ABSENT: abdominal pain, constipation, diarrhea, hematemesis, hematochezia, nausea, vomiting Genitourinary: ABSENT: dysuria, hematuria Musculoskeletal: ABSENT: joint swelling Integumentary: ABSENT: rash, wounds Neurological: ABSENT: abnormal gait, abnormal speech, confusion, dizziness, focal weakness, syncope Psychiatric: ABSENT: anxiety, depression, homidical ideation, suicidal ideation Endocrine: ABSENT: cold intolerance, heat intolerance, polydipsia, polyuria Hematologic/Lymphatic: ABSENT: easy bleeding, easy bruising Physical Exam Vital Signs: Temp Pulse Resp BP Pulse Ox 98.3 F 79 20 116/63 95 02/04/18 13:55 02/04/18 13:55 02/04/18 13:55 02/04/18 13:55 02/04/18 15:01 Intake & Output 02/03/18 02/04/18 02/05/18 06:59 06:59 06:59 Weight 70.307 kg General appearance: PRESENT: no acute distress, well-developed, well-nourished Head exam: PRESENT: atraumatic, normocephalic Eye exam: PRESENT: conjunctiva pink, EOMI, PERRLA. ABSENT: scleral icterus Ear exam: PRESENT: normal external ear exam Mouth exam: PRESENT: moist, tongue midline Neck exam: ABSENT: carotid bruit, JVD, lymphadenopathy, thyromegaly Respiratory exam: PRESENT: crackles, symmetrical, unlabored - left basilar crackles. ABSENT: rales, rhonchi, wheezes Cardiovascular exam: PRESENT: RRR. ABSENT: diastolic murmur, rubs, systolic murmur Pulses: PRESENT: normal dorsalis pedis pul Vascular exam: PRESENT: normal capillary refill GI/Abdominal exam: PRESENT: normal bowel sounds, soft. ABSENT: distended, guarding, mass, organolmegaly, rebound, tenderness Rectal exam: PRESENT: deferred Extremities exam: PRESENT: full ROM. ABSENT: calf tenderness, clubbing, pedal edema Musculoskeletal exam: PRESENT: ambulatory, dislocation, full ROM Neurological exam: PRESENT: alert, awake, oriented to person, oriented to place , oriented to time, oriented to situation, CN II-XII grossly intact. ABSENT: motor sensory deficit Psychiatric exam: PRESENT: appropriate affect, normal mood. ABSENT: homicidal ideation, suicidal ideation Skin exam: PRESENT: dry, intact, warm. ABSENT: cyanosis, rash Results Laboratory Results: 02/04/18 15:27 02/04/18 15:27 02/04/18 02/04/18 15:27 15:27 WBC 17.5 H RBC 3.99 L Hgb 12.7 L Hct 36.6 L MCV 92 MCH 31.7 MCHC 34.6 RDW 14.2 H Plt Count 237 Seg Neutrophils % 88.3 H Lymphocytes % 5.5 L Monocytes % 5.1 Eosinophils % 0.9 Basophils % 0.2 Absolute Neutrophils 15.5 H Absolute Lymphocytes 1.0 Absolute Monocytes 0.9 Absolute Eosinophils 0.2 Absolute Basophils 0.0 Sodium 143.7 Potassium 3.8 Chloride 103 Carbon Dioxide 23 Anion Gap 18 BUN 16 Creatinine 1.11 Est GFR ( Amer) > 60 Est GFR (Non-Af Amer) > 60 Glucose 219 H Calcium 9.5 Total Bilirubin 1.4 H AST 18 ALT 19 L Alkaline Phosphatase 134 H Total Protein 8.1 Albumin 4.2 02/04/18 02/04/18 15:27 15:27 Creatine Kinase 30 L CK-MB (CK-2) 0.37 Troponin I < 0.012 Impressions: Chest X-Ray 02/04/18 15:01 IMPRESSION: Right perihilar airspace opacity, may be secondary to pneumonia. Radiographic followup recommended to ensure complete resolution and exclude a different etiology. Head CT 02/04/18 15:01 IMPRESSION: No acute intracranial hemorrhage or acute territorial infarct. Mild chronic changes of atrophy and microvascular ischemia. EVIDENCE OF ACUTE STROKE: NO. Assessment & Plan - Diagnosis (1) CVA (cerebral vascular accident) Is this a current diagnosis for this admission?: Yes Plan: We will admit to rule out possible CVA. He has minimal left hand weaknes initial CT scan was negative. (2) Diabetes mellitus Qualifiers: Diabetes mellitus type: type 2 Is this a current diagnosis for this admission?: Yes Plan: Lantus and sliding scale insulin (3) Essential hypertension Is this a current diagnosis for this admission?: Yes Plan: Since of the present time. 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 He started on aspirin and statin (5) Left arm numbness Is this a current diagnosis for this admission?: Yes (6) Pneumonia Qualifiers: Pneumonia type: due to unspecified organism Laterality: right Lung location: unspecified part of lung Qualified Code(s): J18.9 - Pneumonia, unspecified organism Is this a current diagnosis for this admission?: Yes Plan: Right lower lobe infiltrate. His had bronchitis and pneumonia 2 weeks ago. He was started on amoxicillin 5 days ago and only take it for 2 days and stop. He states he had a fever back then but none since then. He is room air oxygen saturations 98% he is not tachycardic or hypotensive. He was started on oral Levaquin - Time Time Spent: 50 to 70 Minutes Critical Time spent with patient: 25-34 minutes Medications reviewed and adjusted accordingly: Yes Anticipated discharge: Home Within: within 24 hours
[2018-02-04] MEDS ORDERED: LEVOFLOXACIN 750 MG TABLET PO ONE (19:30)
[2018-02-04] MEDS ORDERED: INSULIN GLARGINE,HUM.REC.ANLOG 1,000 UNIT/10 ML UNIT SUBCUT SCH (22:00)
--- NOTE | 2018-02-04 22:00 | EKG REPORT ---
SEVERITY:- NORMAL ECG - SINUS RHYTHM : Confirmed by: Aj Yeager 04-Feb-2018 21:59:26
[2018-02-05] MEDS: GUAIFENESIN 600 MG TABLET.SA PO SCH ×3 (00:28→22:22)
[2018-02-05] MEDS: ATORVASTATIN CALCIUM 40 MG TABLET PO SCH ×2 (00:29→22:21)
[2018-02-05 07:56] LABS: CHOLESTEROL 154.46 mg/dL (0-200); TRIGLYCERIDES 127 mg/dL (<150)
[2018-02-05 08:08] LABS: DIRECT LDL 88 mg/dL (<100)
[2018-02-05] MEDS: LEVOFLOXACIN 750 MG TABLET PO SCH (10:48)
[2018-02-05] MEDS: ASPIRIN 325 MG TABLET, ENT COATED PO SCH (10:48)
[2018-02-05] MEDS: ENOXAPARIN SODIUM INJ 40 MG/0.4 ML DISP.SYRIN SUBCUT SCH (10:49)
[2018-02-05] MEDS ORDERED: (PENDING PHARMACY ID) (Nph, Human Insulin Isophane [Novolin N (Nph) Insulin 100 Unit/Ml] 1 SUBCUT SCH (11:00)
[2018-02-05] MEDS: INSULIN LISPRO 100 UNIT/ML 3 ML VIAL SUBCUT PRN ×2 (12:36→18:07)
[2018-02-05] MEDS ORDERED: INSULIN NPH (ISOPHANE), HUMAN 100 UNIT/ML 3 ML SUBCUT ONE (13:30)
--- NOTE | 2018-02-05 16:47 | PDOC PROGRESS REPORT ---
Subjective Progress Note for:: 02/05/18 Subjective:: Patient is seen resting in bed. He is awake, alert and oriented x 3. His is at the bedside. He states he is hungry. Nursing apparently made him n.p.o. because of difficulty taking pills last night. 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 His states he normally consumes regular liquids and soft diet at home. She notes occasional coughing after he does drink liquids. He denies any further arm numbness or weakness. He denies any further confusion. He denies any shortness breath or dyspnea at rest. Continues to have mostly nonproductive cough. Denies nausea, vomiting or abdominal pain. He denies any significant arthralgias. Remaining review of systems is negative. Reason For Visit: LEFT ARM WEAKNESS,ALTERED MENTAL STATUS Physical Exam Vital Signs: Temp Pulse Resp BP Pulse Ox 99.4 F 72 19 112/66 95 02/05/18 07:22 02/05/18 07:22 02/05/18 07:22 02/05/18 07:22 02/05/18 07:22 Intake & Output 02/04/18 02/05/18 02/06/18 06:59 06:59 06:59 Intake Total 20 Balance 20 Weight 68.1 kg General appearance: PRESENT: no acute distress, thin, well-developed, well- nourished Head exam: PRESENT: atraumatic, normocephalic Eye exam: PRESENT: conjunctiva pink, EOMI, PERRLA. ABSENT: scleral icterus Ear exam: PRESENT: normal external ear exam Mouth exam: PRESENT: moist, tongue midline Throat exam: PRESENT: post pharyngeal erythema Neck exam: ABSENT: carotid bruit, JVD, lymphadenopathy, thyromegaly Respiratory exam: PRESENT: clear to auscultation june. ABSENT: rales, rhonchi, wheezes Cardiovascular exam: PRESENT: RRR. ABSENT: diastolic murmur, rubs, systolic murmur Pulses: PRESENT: normal carotid pulses, normal radial pulses Vascular exam: PRESENT: normal capillary refill GI/Abdominal exam: PRESENT: normal bowel sounds, soft. ABSENT: distended, guarding, mass, organolmegaly, rebound, tenderness Rectal exam: PRESENT: deferred Extremities exam: PRESENT: full ROM. ABSENT: calf tenderness, clubbing, pedal edema Musculoskeletal exam: PRESENT: ambulatory, full ROM, normal inspection Neurological exam: PRESENT: alert, awake, oriented to person, oriented to place , oriented to time, oriented to situation, CN II-XII grossly intact. ABSENT: motor sensory deficit Psychiatric exam: PRESENT: appropriate affect, normal mood. ABSENT: homicidal ideation, suicidal ideation Skin exam: PRESENT: dry, intact, warm. ABSENT: cyanosis, rash Results Laboratory Results: 02/05/18 06:35 Triglycerides 127 Cholesterol 154.46 LDL Cholesterol Direct 88 VLDL Cholesterol 25.0 HDL Cholesterol 31 L 02/04/18 02/05/18 02/05/18 19:30 01:20 06:35 Troponin I < 0.012 < 0.012 < 0.012 Impressions: Chest X-Ray 02/04/18 15:01 IMPRESSION: Right perihilar airspace opacity, may be secondary to pneumonia. Radiographic followup recommended to ensure complete resolution and exclude a different etiology. Head CT 02/04/18 15:01 IMPRESSION: No acute intracranial hemorrhage or acute territorial infarct. Mild chronic changes of atrophy and microvascular ischemia. EVIDENCE OF ACUTE STROKE: NO. Assessment & Plan - Diagnosis (1) CVA (cerebral vascular accident) Is this a current diagnosis for this admission?: Yes Plan: We will admit to rule out possible CVA. CT of the head yesterday after 24 hours of symptoms showed no CVA. He does not want to have an MRI. His symptoms have completely resolved this morning. 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 His had bronchitis and pneumonia 2 weeks ago. He was started on amoxicillin 5 days ago and only take it for 2 days and stop. He states he had a fever back then but none since then. He is room air oxygen saturations 98% he is not tachycardic or hypotensive. He was started on oral Levaquin (5) Dysphagia Qualifiers: Dysphagia type: oral phase Qualified Code(s): R13.11 - Dysphagia, oral phase Is this a current diagnosis for this admission?: Yes Plan: Speech therapy consult. He has history of glossal cancer 3 years ago with resection and XRT. His does noted some difficulties with coughing after drinking. Speech therapy is recommended a cookie study for tomorrow. He does well with nectar thickened liquid and soft diet will continue this. (6) Left arm numbness Is this a current diagnosis for this admission?: Yes Plan: This is completely resolved. (7) Diabetes mellitus Qualifiers: Diabetes mellitus type: type 2 Is this a current diagnosis for this admission?: Yes Plan: Lantus and sliding scale insulin - Time Time Spent with patient: 25-34 minutes Total Critical Time (Minutes): 20 Medications reviewed and adjusted accordingly: Yes Anticipated discharge: Home Within: within 24 hours - Inpatient Certification Based on my medical assessment, after consideration of the patient's comorbidities, presenting symptoms, or acuity I expect that the services needed warrant INPATIENT care.: Yes I certify that my determination is in accordance with my understanding of Medicare's requirements for reasonable and necessary INPATIENT services [42 CFR 412.3e].: Yes Medical Necessity: Failure to Improve With Outpatient Therapy, Need Close Monitoring Due to Risk of Patient Decompensation, Need for Neurological Checks, Risk of Complication if Not Cared For in Hospital
[2018-02-05] MEDS ORDERED: OLANZAPINE 5 MG TABLET PO SCH (22:00)
[2018-02-05] MEDS ORDERED: INSULIN GLARGINE,HUM.REC.ANLOG 300 UNIT/3 ML INSULN.PEN SUBCUT SCH (22:00)
[2018-02-06] MEDS ORDERED: LANSOPRAZOLE 15 MG TAB.RAP.DR PO SCH (06:00)
--- NOTE | 2018-02-06 09:24 | RADIOLOGY REPORT (SQ) ---
EXAM DESCRIPTION: DONG SWALLOW COMPLETED DATE/TIME: 02/06/2018 8:48 am REASON FOR STUDY: Possible aspiration COMPARISON: None. TECHNIQUE: Videofluoroscopic swallowing examination was performed in conjunction with speech patholo gy. Videofluoroscopic imaging was obtained and reviewed and these are the findings: RADIATION DOSE: Fluoro time 2.58 minutes 1 images saved to PACS. LIMITATIONS: None FINDINGS: The patient was brought into the fluoro room and placed upright on a modified barium swall ow chair. The patient was then given multiple consistencies mixed with barium to swallow under live fluoroscopic video guidance. According to the Speech Pathologist there was deep laryngeal penetratio n seen with thin and nectar thick consistencies. Trace aspiration was identified from the residuals. Please refer to the speech pathology report for further details. IMPRESSION: DEEP LARYNGEAL PENETRATION WITH THIN AND NECTAR THICK CONSISTENCIES, WITH TRACE ASPIRATI ON SEEN FROM RESIDUALS.PLEASE SEE SPEECH PATHOLOGIST REPORT FOR OTHER FINDINGS AND RECOMMENDATIONS. COMMENT: NONE Quality ID [id number]: Final reports for procedures using fluoroscopy that document radiation exposure arie marshal, or exposure time and number of fluorographic images (if radiation exposure indices are not avail able) TECHNICAL DOCUMENTATION: JOB ID: [id number]- All Rights Reserved Reading location - IP/workstation name: [email or web address] [id number]
--- NOTE | 2018-02-06 10:19 | ST Inp Modified Barium Swallow ---
Medical Diagnosis - Medical Diagnoses Medical Diagnosis Description & ICD-10 Code(s): CVA, Pneumonia, oral phase dysphagia ST [place] [facility] [place]: 02/06/18 - History History Obtained From: Other - EMR -: Medical - per EMR: patient has medical history of glossal cancer status post resection and radiation treatment and chemo therapy x3 years ago, hypertension, diabetes melitus type 2, dyslipidemia. Patient admitted 02/04/18 due to left sided weakness and altered mental status. Reportedly has had cough x2 weeks Medications: Medications Reviewed Allergies: Refer to medical record - Subjective Current Nutritional Means: PO Current PO Diet: Soft, Thickened liquids Current Symptoms: Coughing, Pneumonia Pain: Patient reports, 0/5 - Objective Assessment: Upright, Left Lateral - Food Trials Food Trials Used: Thin liquids, Honey-thickened liquids, Wall thick liquids, Pureed The Patient: Was Able to Self Feed - Assessment Labial Function: Within Normal Limits Lingual Function: Within Normal Limits - Pharyngeal Stage Initiation of Pharyngeal Stage: Normal Decreased Laryngeal Elevation: Yes Reduced Velo-Pharyngeal Closure: no Reduced Pressure Generation: Yes Pre-Swallowing Pooling in Valleculae: Moderate Pre-Swallowing Pooling in Pyriforms: Moderate Reduced Thyro-Hyiod Approximation: Yes Reduced Epiglottic Excursion: Yes Multiple Swallows With: Ineffective Clearance - required multiple dry swallows to clear residue Post Swallow Residuals in Valleculae: Mild Post Swallow Residuals in Pyriforms: Moderate Post Swallow Residuals: throughout pharynx - Esophageal Stage Cricophageal Function: Normal - Impression/Summary Laryngeal Penetration: Yes, Deep, during swallow - with liquid trials, after swallow - on residue from thick and puree trials Tracheal Aspiration: yes, after swallow Productive Cough: Yes - needed cue to cough Effective Clearing: partial clearing Effective Compensatory Strategies: throat clear & reswallow Patient Presents With: Pharyngeal stage dysph., Severe Risk of Aspiration: Moderate Risk Due To: Moderate to severe pharyngeal phase dysphagia. Patient demonstrated aspiration after the swallow on nectar and pudding trials due to residue entering airway. Penetration seen with thin liquids, able to redirect with throat clear. Mild penetration of honey thick liquid seen, with increased pharyngeal residue post swallow. Biggest risk of aspiration is from residue from thicker trials after the swallow entering airway. Discussed risk of aspiration and aspiration pneumonia iwth patient, and discussed possible need for alternative means for nutrition/hydration. Patient voiced understanding. Also discussed results with physician. Safest PO diet judged to be thin liquid and soft solids, however, patient still at risk of aspiration with this diet. - Recommendations Solid Diet Recommendations: Mechanical Soft Liquid Diet Recommendations: Thin Regular Diet: No Strict Aspitarion Precautions: Yes Dysphagia Therapy with SPA SUPERVISOR: Yes, Outpatient, Home Health Recommended Techniques: Fully Upright During Meal, Small Bites and Sips, Alternate Bites/Sips Other Recommendations: Would benefit from dysphagia therapy in outpaitent or home health setting to discuss compensatory strategies and dysphagia exercises. - Time Total Time: 30 Total Timed Minutes: 30
[2018-02-06] MEDS: LEVOFLOXACIN 750 MG TABLET PO SCH (10:41)
[2018-02-06] MEDS: ASPIRIN 325 MG TABLET, ENT COATED PO SCH (10:41)
[2018-02-06] MEDS: ENOXAPARIN SODIUM INJ 40 MG/0.4 ML DISP.SYRIN SUBCUT SCH (10:41)
[2018-02-06] MEDS: GUAIFENESIN 600 MG TABLET.SA PO SCH (10:41)
[2018-02-06] MEDS ORDERED: INSULIN NPH (ISOPHANE), HUMAN 100 UNIT/ML 3 ML SUBCUT SCH (11:00)
[2018-02-06] MEDS ORDERED: INSULIN LISPRO 100 UNIT/ML 3 ML VIAL SUBCUT SCH (11:00)
--- NOTE | 2018-02-06 11:22 | RADIOLOGY REPORT (SQ) ---
EXAM DESCRIPTION: CAROTID DOPPLER COMPLETED DATE/TIME: 02/06/2018 10:54 am REASON FOR STUDY: Left arm weakness, slurred speech COMPARISON: None. TECHNIQUE: Grayscale ultrasound, Doppler velocity and spectra, and color Doppler images acquired of the extra-cranial carotid and vertebral arteries. Images stored on PACS. LIMITATIONS: Body habitus. Motion. FINDINGS: RIGHT CAROTID CCA Velocities: Within normal limits. ICA Velocities Peak systolic 0.95 m/s. End diastolic 0.28 m/s. Proximal ICA/CCA peak systolic ratio 1.3. Spectra normal. No significant plaque. LEFT CAROTID CCA Velocities: Within normal limits. ICA Velocities Peak systolic 0.74 m/s. End diastolic 0.16 m/s. Proximal ICA/CCA peak systolic ratio 1.0. Spectra normal. No significant plaque. VERTEBRAL ARTERIES: Antegrade flow. Normal waveforms. SUBCLAVIAN ARTERIES: Not imaged. OTHER: No other significant finding. IMPRESSION: NO HEMODYNAMICALLY SIGNIFICANT STENOSIS. COMMENT: Quality ID #[id number]: Velocity criteria are extrapolated from the diameter data as defined by t he Society of Radiologists in Ultrasound Consensus Conference. Radiology 2003: 229; 340-346. TECHNICAL DOCUMENTATION: JOB ID: [id number] [employer]- All Rights Reserved Reading location - IP/workstation name: [email or web address]
--- NOTE | 2018-02-06 12:29 | PDOC DISCHARGE SUMMARY ---
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 Is this a current diagnosis for this admission?: Yes (4) Pneumonia Is this a current diagnosis for this admission?: Yes (5) Dysphagia Is this a current diagnosis for this admission?: Yes (6) Left arm numbness Is this a current diagnosis for this admission?: Yes (7) Diabetes mellitus Is this a current diagnosis for this admission?: Yes - Additional Information Resuscitation Status: Full Code Discharge Diet: Regular, Other (Comments) Discharge Activity: Activity As Tolerated Prescriptions: Levofloxacin [Levaquin 750 mg Tablet] 750 mg PO DAILY #7 tablet Home Medications: Amlodipine Besylate 2.5 mg PO DAILY 02/04/18 Insulin Glargine,Hum.rec.anlog [Lantus Insulin 100 Unit/1 ml 10 ml] 25 unit SUBCUT QHS 02/04/18 NPH, Human Insulin Isophane [Novolin N (NPH) Insulin 100 unit/mL] 15 unit SUBCUT ACLUNCH 02/04/18 Olanzapine [Zyprexa] 20 mg PO QHS 02/04/18 Omeprazole 20 mg PO DAILY 02/04/18 Sertraline HCl 100 mg PO QHS 02/04/18 Levofloxacin [Levaquin 750 mg Tablet] 750 mg PO DAILY #7 tablet 02/06/18 History of Present Illness Patient complains of: Left arm numbness and cough History of Present Illness: NIDA VELASQUEZ is a 72 year old male with past medical history of essential hypertension, dyslipidemia, diabetes mellitus type 2 on insulin and 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 Patient presents to [facility]'s emergency room this afternoon complaining of episode of dizziness yesterday at 10 AM in which he fell landing on his knee. Patient since then has had left-sided weakness to the left upper extremity. Patient states he has a decreased gas station operator to the left hand and has a decrease in sensation to the left upper arm. Patient's family states that he had confusion after this episode yesterday that has gradually started to resolve and return to his normal baseline today. states that he does have some memory issues after treatment of tongue cancer with radiation. Patient's states that his confusion yesterday was not normal for him. Patient additionally has had a cough for the past 2 weeks. Patient was placed on amoxicillin 5 days ago but only took it for 2 days and then refused to take any more. Patient denies any chest pain, back pain headache or any dizzy symptoms at this time. Patient did have an episode of vomiting yesterday when this episode occurred. Patient's last known well was prior to 10 AM yesterday. Hospital Course Hospital Course: Patient was admitted to the [facility] on telemetry. He had neuro checks and mends done frequently by the nursing staff. He had no noted deficits other than the complaints of left arm numbness. This resolved overnight. Initial CT of the head showed no infarct. Carotid duplex showed no signs of carotid stenosis. Patient refused MRI because of his claustrophobia despite offer of sedation. All symptoms had normalized except for his cough. Chest x-ray showed a right middle lobe infiltrate. He had been started on amoxicillin by his primary care provider the week prior but only took it for 2 days and then stopped due to constipation concerns. He was started on oral Levaquin therapy and Mucinex. His cough gradually improved. He was seen by speech therapy as well. I suggested a modified barium swallow for dysphagia. Patient had delayed swallowing during his study but no active aspiration. 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 Patient at this time thinks he is doing fine with his soft diet at home. He will consider PEG in the future should he have further problems. He will follow-up with his primary care provider in 1 week. He was discharged home with his in good condition. Physical Exam Vital Signs: Temp Pulse Resp BP Pulse Ox 98.2 F 66 18 149/75 H 97 02/06/18 12:04 02/06/18 12:04 02/06/18 12:04 02/06/18 12:04 02/06/18 12:04 Intake & Output 02/05/18 02/06/18 02/07/18 06:59 06:59 06:59 Intake Total 20 682 Balance 20 682 Weight 68.1 kg 67.9 kg General appearance: PRESENT: no acute distress, thin, well-developed, well- nourished Head exam: PRESENT: atraumatic, normocephalic Eye exam: PRESENT: conjunctiva pink, EOMI, PERRLA. ABSENT: scleral icterus Ear exam: PRESENT: normal external ear exam Mouth exam: PRESENT: moist, tongue midline Neck exam: PRESENT: carotid bruit Respiratory exam: PRESENT: crackles - Right base, symmetrical, unlabored Cardiovascular exam: PRESENT: RRR. ABSENT: diastolic murmur, rubs, systolic murmur Pulses: PRESENT: normal dorsalis pedis pul Vascular exam: PRESENT: normal capillary refill GI/Abdominal exam: PRESENT: normal bowel sounds, soft. ABSENT: distended, guarding, mass, organolmegaly, rebound, tenderness Rectal exam: PRESENT: deferred Extremities exam: PRESENT: full ROM. ABSENT: calf tenderness, clubbing, pedal edema Musculoskeletal exam: PRESENT: ambulatory, full ROM, normal inspection Neurological exam: PRESENT: alert, awake, oriented to person, oriented to place , oriented to time, oriented to situation, CN II-XII grossly intact. ABSENT: motor sensory deficit Psychiatric exam: PRESENT: appropriate affect, normal mood. ABSENT: homicidal ideation, suicidal ideation Skin exam: PRESENT: dry, intact, warm. ABSENT: cyanosis, rash Results Laboratory Results: 02/04/18 02/05/18 02/05/18 19:30 01:20 06:35 Troponin I < 0.012 < 0.012 < 0.012 Impressions: Chest X-Ray 02/04/18 15:01 IMPRESSION: Right perihilar airspace opacity, may be secondary to pneumonia. Radiographic followup recommended to ensure complete resolution and exclude a different etiology. Head CT 02/04/18 15:01 IMPRESSION: No acute intracranial hemorrhage or acute territorial infarct. Mild chronic changes of atrophy and microvascular ischemia. EVIDENCE OF ACUTE STROKE: NO. Carotid Doppler Study 02/06/18 00:00 IMPRESSION: NO HEMODYNAMICALLY SIGNIFICANT STENOSIS. Modified Barium Swallow 02/06/18 00:00 IMPRESSION: DEEP LARYNGEAL PENETRATION WITH THIN AND NECTAR THICK CONSISTENCIES , WITH TRACE ASPIRATION SEEN FROM RESIDUALS.PLEASE SEE SPEECH PATHOLOGIST REPORT FOR OTHER FINDINGS AND RECOMMENDATIONS. Qualifiers - * PATIENT BEING DISCHARGED WITH ANY OF THE FOLLOWING DIAGNOSIS: No Plan Discharge Plan: Home with Time Spent: Less than 30 Minutes
[2018-02-06 12:58] VITALS: BP 138/67
== END 2018-02-06 12:59 | disposition home or self-care (01) ==
LOC: ER 13:38 → EH 18:08 → 3W 21:50
PROVIDERS: ADMIT Internal Medicine; ATTEND Internal Medicine
DX: I63.9 Cerebral infarction, unspecified (principal); R13.11 Dysphagia, oral phase; R20.0 Anesthesia of skin; I69.354 Hemiplegia and hemiparesis following cerebral infarction affecting left non-dominant side; G83.24 Monoplegia of upper limb affecting left nondominant side; I10 Essential (primary) hypertension; J18.1 Lobar pneumonia, unspecified organism; F40.240 Claustrophobia; E11.9 Type 2 diabetes mellitus without complications; Z53.29 Procedure and treatment not carried out because of patient's decision for other reasons; R11.10 Vomiting, unspecified; Z85.810 Personal history of malignant neoplasm of tongue; Z98.890 Other specified postprocedural states; Z92.3 Personal history of irradiation; Z90.49 Acquired absence of other specified parts of digestive tract; Z87.891 Personal history of nicotine dependence; Z82.49 Family history of ischemic heart disease and other diseases of the circulatory system
CPT/HCPCS: 93005; 99285; 96365; 96368; 36415 ×2; 87040; 82553; 82962 ×2; 82550; 85025; 85610; 80053; 84484 ×2; 80061; 93880; 71045; 74230; 70450; 93010; 97163; 92611; 97165; G0378 ×3; A9270 ×11; J1650 ×2; J0696; J3490 ×2; J0456; G8978; G8979; G8980; G8996; G8997; J1815

== ENCOUNTER → 2018-05-09 | Outpatient (CLI) | payer MEDICARE ==
--- NOTE | 2018-05-09 11:59 | RADIOLOGY REPORT (SQ) ---
EXAM DESCRIPTION: BARIUM SWALLOW ESOPHAGUS COMPLETED DATE/TIME: 05/09/2018 9:55 am REASON FOR STUDY: DYSPHAGIA (R13.12), PERSONAL HX OF MALIGNANT NEOPLASM OF OTHER SITES OF LIP R13.12 DYSPHAGIA, OROPHARYNGEAL PHASE Z85.818 PRSNL HX OF MALIG NEOPLM OF SITE OF LIP, ORAL CAV, COMPARISON: Video assisted speech pathology swallow study 02/06/2018 TECHNIQUE: Under fluoroscopic guidance, patient ingested effervescent granules followed by thick and thin barium. Fluoroscopic spot images and routine radiographic images acquired and stored on PACS. 12 MM BARIUM TABLET GIVEN: Yes. The 12 mm barium tablet paused in the patient's upper esophagus at the level of C4-5, just dorsal to laryngeal structures. Tablet persistent for 5 minutes in this location before passing through into t he remainder the esophagus and stomach. Patient gives a history of laryngeal cancer with radiation. Mild upper esophageal stricture related to radiation therapy is suspected. LIMITATIONS: None. FLUOROSCOPY TIME: FLUORO TIME: 3.4 minutes 14 series of digital images saved to PACS. FINDINGS: NEUROMUSCULAR COORDINATION OF SWALLOW: Poor control of the oral bolus of thick barium with aspiration of liquid barium into the trachea. Minimal cough response. ESOPHAGEAL MOTILITY: Normal peristalsis. No esophageal spasm. Fixed narrowing in the upper cervical esophagus at the level of C4-5, just dorsal to the laryngeal structures. Swallowed tablet persisted in this location 5 minutes before passing through into the remainder the esophagus and stomach ESOPHAGEAL MUCOSA: There is no distal esophageal mucosal irregularity just above a small hiatal herni a. Mancilla's esophagus could not be excluded GASTRO-ESOPHAGEAL JUNCTION: Small hiatal hernia. No distal esophageal stricture. Mild distal esopha geal mucosal irregularity could represent Mancilla's esophagus. NON-GI TRACT STRUCTURES: Patient aspirated barium into the trachea throughout the study. Cervical de generative disc changes with mild anterior cervical osteophyte formation. OTHER: No other significant finding. IMPRESSION: Poor control of the oral bolus of thick barium with aspiration of liquid barium into the trachea. Minimal cough response. Upper esophageal stricture at the level of C4-5/larynx. This could be radiation induced stricture. Patient gives a history of laryngeal malignancy with radiotherapy treatment Hiatal hernia with mild distal esophageal mucosal irregularity worrisome for Mancilla's esophagus COMMENT: Quality ID [id number]: Final reports for procedures using fluoroscopy that document radiation exp osure indices, or exposure time and number of fluorographic images (if radiation exposure indices are not available) TECHNICAL DOCUMENTATION: JOB ID: [id number] [employer]- All Rights Reserved Reading location - IP/workstation name: [email or web address]-2
== END ==
LOC: RAD 09:10
PROVIDERS: ATTEND Internal Medicine Gastroenterology
DX: K22.2 Esophageal obstruction (principal); R13.12 Dysphagia, oropharyngeal phase; Z85.818 Personal history of malignant neoplasm of other sites of lip, oral cavity, and pharynx; K44.9 Diaphragmatic hernia without obstruction or gangrene
CPT/HCPCS: 74220

== ENCOUNTER 2019-07-20 14:48 | Outpatient (CLI) | payer MEDICARE ==
[~2019-07-20 14:48] MED LIST: ACETAMINOPHEN 325 MG TABLET PO PRN; DIPHENHYDRAMINE HCL 25 MG CAPSULE PO PRN
[2019-07-20 15:13] LABS: MEAN CORPUSCULAR HEMOGLOBIN 31.6 pg (27.0-33.4); MEAN CORPUSCULAR HGB CONC 36.1 g/dL (32.0-36.0); MEAN CORPUSCULAR VOLUME 88 fl (80-97); RED BLOOD COUNT 2.28 10^6/uL (4.35-5.55); RED CELL DISTRIBUTION WIDTH 15.4 % (11.5-14.0)
[2019-07-20] MEDS ORDERED: NORMAL SALINE 250 ML IV PRN (15:30)
[2019-07-20 15:43] LABS: HEMOGLOBIN 7.2 g/dL (13.5-17.0); WHITE BLOOD COUNT 0.8 10^3/uL (4.0-10.5)
[2019-07-20 15:44] LABS: PLATELET COUNT 39 10^3/uL (150-450)
[2019-07-20 20:59] VITALS: BP 137/57
== END 2019-07-20 21:05 | disposition home or self-care (01) ==
LOC: II 14:48 → 4N 14:52 → II 21:05
PROVIDERS: ATTEND Internal Medicine
DX: D69.6 Thrombocytopenia, unspecified (principal)
CPT/HCPCS: 86900; 86901; 36430; P9035; A9270 ×2

== ENCOUNTER 2019-11-10 12:28 | Inpatient (IN) | payer MEDICARE ==
[2019-11-10] MEDS ORDERED: CEFTRIAXONE 1 GM/D5W RTU 1 GM/50 ML RTUPB IV ONE (12:47)
[2019-11-10] MEDS ORDERED: ACETAMINOPHEN 325 MG TABLET PO ONE (12:47)
[2019-11-10] MEDS ORDERED: RINGERS SOLUTION,LACTATED 1,000 ML IV ONE (12:49)
--- NOTE | 2019-11-10 12:50 | ER Document Report ---
ED General - General Chief Complaint: Fever Stated Complaint: FEVER Time Seen by Provider: 11/10/19 12:33 Primary Care Provider: QUOC NELSON MD [Primary Care Provider] - Follow up as needed Notes: CHIEF COMPLAINT: Cough for 3 days, fever today HPI: 74-year-old male with history of throat cancer, leukemia who is undergoing chemotherapy treatment currently presenting for dry cough for 3 days with onset of fever today. Denies abdominal pain nausea vomiting. Patient states he had chemotherapy last week. He states he gets chemotherapy every 3 weeks. Patient is unable to tell me what medications he receives or how long he has been on chemotherapy. Patient denies chest pain. He denies shortness of breath. He complains of generalized weakness. He denies dysuria ROS: See HPI - all other systems were reviewed and are otherwise negative Constitutional: Positive fever Eyes: no drainage, no blurred vision ENT: no runny nose, no sore throat Cardiovascular: no chest pain Resp: no SOB, positive cough GI: no vomiting, no diarrhea, no abdominal pain : no dysuria Integumentary: no rash Allergy: no hives Musculoskeletal: no extremity pain or swelling Neurological: no numbness/tingling, positive generalized weakness MEDICATIONS: I agree with the patient medications as charted by the RN. ALLERGIES: I agree with the allergies as charted by the RN. PAST MEDICAL HISTORY/PAST SURGICAL HISTORY: Reviewed and agree as charted by RN. SOCIAL HISTORY: Reviewed and agree as charted by RN. FAMILY HISTORY: No significant familial comorbid conditions directly related to patient complaint EXAM: Reviewed vital signs as charted by RN. CONSTITUTIONAL: Alert and oriented and responds appropriately to questions. Well-appearing; well-nourished, mild distress secondary to fever HEAD: Normocephalic; atraumatic EYES: PERRL; Conjunctivae clear, sclerae non-icteric ENT: normal nose; no rhinorrhea; moist mucous membranes; pharynx without lesions noted, no uvula edema or deviation, no tonsillar hypertrophy, phonation normal NECK: Supple without meningismus; non-tender; no cervical lymphadenopathy, no masses CARD: RRR; no murmurs, no clicks, no rubs, no gallops; symmetric distal pulses RESP: Normal chest excursion without splinting or tachypnea; breath sounds clear and equal bilaterally; no wheezes, no rhonchi, no rales, pulse oximetry 97% on room air not hypoxic ABD/GI: Normal bowel sounds; non-distended; soft, non-tender, no rebound, no guarding; no palpable organomegaly or masses. BACK: The back appears normal and is non-tender to palpation, there is no CVA tenderness EXT: Normal ROM in all joints; non-tender to palpation; no cyanosis, no effusions, no edema SKIN: Normal color for age and race; warm; dry; good turgor; no acute lesions noted NEURO: Moves all extremities equally; Motor and sensory function intact PSYCH: The patient's mood and manner are appropriate. Grooming and personal hygiene are appropriate. MDM: 74-year-old male brought for evaluation of generalized weakness, 3 days of dry cough with onset of a fever today. Undergoing chemotherapy currently. Follows with Dr. Nelson. Patient does come in with a CBC that he states was drawn yesterday which shows a WBC count of 0.4 indicating neutropenia in this patient, will place on neutropenic precautions, obtain blood culture urine culture chest x-ray screening labs. Will likely need admission TRAVEL OUTSIDE OF THE [place] IN LAST 30 DAYS: No - Related Data Allergies/Adverse Reactions: morphine Allergy (Verified 11/10/19 12:57) Past Medical History - Social History Smoking Status: Unknown if Ever Smoked Family History: DM, Hypertension - Past Medical History Cardiac Medical History: Reports: Hx Hypertension Endocrine Medical History: Reports: Hx Diabetes Mellitus Type 2 Renal/ Medical History: Denies: Hx Peritoneal Dialysis Musculoskeletal Medical History: Reports Hx Arthritis Psychiatric Medical History: Reports: Hx Bipolar Disorder, Hx Depression, Hx Post Traumatic Stress Disorder Past Surgical History: Reports: Hx Abdominal Surgery - G TUBE, Hx Cholecystectomy, Other - Glossal resection PEG tube insertion - Immunizations Immunizations up to date: Yes Hx Diphtheria, Pertussis, Tetanus Vaccination: Yes Physical Exam - Vital signs Vitals: Temp Pulse Ox 101.6 F H 99 11/10/19 12:28 11/10/19 12:28 Course - Re-evaluation Re-evalutation: 11/10/19 13:30 Patient's chest x-ray on my review does not show evidence of infiltrate. Patient's WBC count is 0.1. Platelet count is 28. Awaiting official numbers to calculate ANC and will plan to call hematology for admission for neutropenic fever 11/10/19 13:[address] Branch, Hematology. Case was discussed, labs were reviewed, agrees with symptom management and admission for neutropenic fever please admit to hospitalist group. 11/10/19 13:44 spoke with [facility] Hospitalist lift team technician, case discussed, labs reviewed. requests I call Dr. Norris for admission. 11/10/19 13:[address] Norris, requests Vancomycin/Cefipime IV to start now. will admit - Vital Signs Vital signs: Temp Pulse Resp BP Pulse Ox 101.6 F H 18 107/55 L 98 11/10/19 12:58 11/10/19 13:01 11/10/19 13:01 11/10/19 13:01 - Laboratory Result Diagrams: 11/10/19 12:50 11/10/19 12:50 Laboratory results interpreted by me: 11/10/19 11/10/19 11/10/19 12:50 12:50 12:50 WBC 0.1 L* RBC 2.34 L Hgb 8.6 L Hct 23.8 L MCV 102 H MCH 36.9 H MCHC 36.3 H RDW 16.7 H Plt Count 28 L* Lymph % (Auto) 71.6 H Absolute Neuts (auto) 0.0 L Absolute Lymphs (auto) 0.1 L Absolute Monos (auto) 0.0 L Seg Neutrophils % 17.5 L PT 15.6 H Sodium 130.0 L Chloride 96 L BUN 24 H Glucose 312 H Total Bilirubin 1.6 H Discharge - Discharge Clinical Impression: Neutropenic fever, Cough Condition: Serious Disposition: ADMITTED INPATIENT Admitting Provider: Myrna (Hospitalist) Unit Admitted: Medical Floor Referrals: QUOC NELSON MD [Primary Care Provider] - Follow up as needed
[2019-11-10 13:12] LABS: VENOUS BLOOD BASE EXCESS -1.7 mmol/L; VENOUS BLOOD HCO3 22.6 mmol/L (20-32); VENOUS BLOOD PCO2 36.8 mmHg (35-63); VENOUS BLOOD PH 7.41 (7.30-7.42)
[2019-11-10 13:15] LABS: ABSOLUTE LYMPHOCYTES (AUTO) 0.1 10^3/uL (0.5-4.7); EOSINOPHILS % (AUTO) 4.2 % (0-6); HEMATOCRIT 23.8 % (37.9-51.0); HEMOGLOBIN 8.6 g/dL (13.5-17.0); LYMPHOCYTES % (AUTO) 71.6 % (13-45); MEAN CORPUSCULAR HEMOGLOBIN 36.9 pg (27.0-33.4); MEAN CORPUSCULAR HGB CONC 36.3 g/dL (32.0-36.0); MEAN CORPUSCULAR VOLUME 102 fl (80-97); MONOCYTES % (AUTO) 6.7 % (3-13); RED BLOOD COUNT 2.34 10^6/uL (4.35-5.55); RED CELL DISTRIBUTION WIDTH 16.7 % (11.5-14.0); SEGMENTED NEUTROPHILS % (AUTO) 17.5 % (42-78); TOTAL CELLS COUNTED % (AUTO) 100 %
[2019-11-10 13:18] LABS: INTERNATIONAL RATION (INR) 1.23; PROTHROMBIN TIME 15.6 SEC (11.4-15.4)
[2019-11-10 13:31] LABS: ALKALINE PHOSPHATASE 87 U/L (38-126); ANION GAP 12 (5-19); ASPARTATE AMINO TRANSFERASE 18 U/L (17-59); BILIRUBIN,DIRECT 0.1 mg/dL (0.0-0.4); BILIRUBIN,TOTAL 1.6 mg/dL (0.2-1.3); BLOOD UREA NITROGEN 24 mg/dL (7-20); CALCIUM 8.9 mg/dL (8.4-10.2); CARBON DIOXIDE 22 mmol/L (22-30); CHLORIDE 96 mmol/L (98-107); GLUCOSE 312 mg/dL (75-110); POTASSIUM 3.9 mmol/L (3.6-5.0); TOTAL PROTEIN 7.7 g/dL (6.3-8.2)
[2019-11-10 13:45] LABS: PLATELET COUNT 28 10^3/uL (150-450); WHITE BLOOD COUNT 0.1 10^3/uL (4.0-10.5)
[2019-11-10 13:46] LABS: ANISOCYTOSIS 1+; OVALOCYTES SLIGHT; PLATELET COMMENT DECREASED; POIKILOCYTOSIS 1+; TEAR DROP CELLS SLIGHT
[2019-11-10] MEDS ORDERED: VANCOMYCIN HCL INJ 1000 MG VIAL IV ONE (13:48)
[2019-11-10] MEDS ORDERED: CEFEPIME 2 GM/D5W RTU 2 GM/50 ML RTUPB IV ONE (13:48)
--- NOTE | 2019-11-10 13:50 | RADIOLOGY REPORT (SQ) ---
EXAM DESCRIPTION: CHEST SINGLE VIEW IMAGES COMPLETED DATE/TIME: 11/10/2019 1:37 pm REASON FOR STUDY: cough fever COMPARISON: 02/04/2018. EXAM PARAMETERS: NUMBER OF VIEWS: One view. TECHNIQUE: Single frontal radiographic view of the chest acquired. RADIATION DOSE: NA LIMITATIONS: None. FINDINGS: LUNGS AND PLEURA: No opacities, masses or pneumothorax. No pleural effusion. MEDIASTINUM AND HILAR STRUCTURES: No masses. Contour normal. HEART AND VASCULAR STRUCTURES: Heart normal in size. Normal vasculature. BONES: No acute findings. Degenerative changes in the spine and shoulders. HARDWARE: None in the chest. OTHER: No other significant finding. IMPRESSION: NO ACUTE RADIOGRAPHIC FINDING IN THE CHEST. TECHNICAL DOCUMENTATION: JOB ID: [id number] 2010 [employer]- All Rights Reserved Reading location - IP/workstation name: [email or web address]
[2019-11-10 14:08] LABS: APPEARANCE,URINE CLEAR; BILIRUBIN,URINE NEGATIVE (NEGATIVE); COLOR,URINE YELLOW; GLUCOSE, URINE 50 mg/dL (NEGATIVE); KETONES,URINE NEGATIVE (NEGATIVE); PROTEIN,URINE NEGATIVE (NEGATIVE); URINE SPECIFIC GRAVITY 1.011; UROBILINOGEN,URINE NEGATIVE mg/dL (<2.0)
[2019-11-10 14:58] LABS: A TYPE INFLUENZA AG NEGATIVE (NEGATIVE); B INFLUENZA AG NEGATIVE (NEGATIVE)
[2019-11-10] MEDS ORDERED: IPRATROPIUM/ALBUTEROL 0.5-2.5 MG/3 ML AMPUL NEB PRN (15:22)
[2019-11-10] MEDS ORDERED: ONDANSETRON HCL INJ/PF 4 MG/2 ML SDV IV PRN (15:22)
[2019-11-10] MEDS ORDERED: ONDANSETRON 4 MG TAB.RAPDIS PO PRN (15:22)
[2019-11-10] MEDS ORDERED: RINGERS SOLUTION,LACTATED 1,000 ML IV SCH (15:30)
[2019-11-10] MEDS ORDERED: OXYCODONE HCL IR 5 MG TABLET PO PRN (15:51)
--- NOTE | 2019-11-10 15:53 | PDOC H&P ---
History of Present Illness Admission Date/PCP: 11/10/19 14:46 QUOC NELSON MD History of Present Illness: NIDA VELASQUEZ is a 74 year old male past medical history significant for le ukemia on chemotherapy, head/neck cancer treated with radiation in the past, T2 DM, history of CVA, HTN who presents with a 3 to 4-day history of progressive productive cough of white sputum and fevers greater than 102 degrees. Patient states he has never had this reaction to his chemotherapy in the past. 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 Patient is followed with local oncology group and they have been notified of the patient's admission, will follow along here while patient is admitted. Chest x-ray unremarkable. WBC down to 0.1, hemoglobin down to 8.6, thrombocytopenia down to 28. Urinalysis was not done at time of admission as patient had not urinated yet. He was started on IV fluids and broad-spectrum antibiotics arranged pending fever. Admitted to general medicine floor. Neutropenic diet. Necessity and timing of bone marrow stimulant such as Granix will be up to hematology. Past Medical History Cardiac Medical History: Reports: Hypertension Pulmonary Medical History: Reports: Pneumonia Endocrine Medical History: Reports: Diabetes Mellitus Type 2 Malignancy Medical History: Reports: Leukemia, Other - Head and neck cancer Musculoskeltal Medical History: Reports: Arthritis Psychiatric Medical History: Reports: Bipolar Disorder, Depression, Post Traumatic Stress Disorder Hematology: Reports: Anemia Past Surgical History Past Surgical History: Reports: Cholecystectomy, Other - Glossal resection PEG tube insertion Social History Information Source: Patient, Emergency Med Personnel, ON LICENSE OF [facility] Records Lives with: Family, Spouse/Significant other Smoking Status: Former Smoker Electronic Cigarette use?: No Frequency of Alcohol Use: Rare Hx Recreational Drug Use: No Drugs: None Hx Prescription Drug Abuse: No - Advance Directive Resuscitation Status: Do Not Resuscitate Surrogate healthcare decision maker:: Family History Family History: DM, Hypertension Parental Family History Reviewed: Yes Children Family History Reviewed: Yes Sibling(s) Family History Reviewed.: Yes Medication/Allergy Home Medications: Olanzapine [Zyprexa] 20 mg PO QHS 02/04/18 Sertraline HCl 100 mg PO QHS 02/04/18 Cefdinir 300 mg PO BID 11/10/19 Insulin Glargine,Hum.rec.anlog [Lantus Insulin 100 Unit/mL Insulin Pen] 8 units IJ QPM 11/10/19 Insulin Lispro [Humalog Kwikpen] 16 unit SQ ASDIR PRN 11/10/19 Valacyclovir HCl [Valacyclovir] 500 mg PO DAILY 11/10/19 Allergies/Adverse Reactions: morphine Allergy (Verified 11/10/19 12:57) Review of Systems All systems: reviewed and no additional remarkable complaints except as stated - Per HPI otherwise negative Physical Exam Vital Signs: Temp Pulse Resp BP Pulse Ox 98.5 F 18 147/66 H 99 11/10/19 15:07 11/10/19 15:01 11/10/19 15:01 11/10/19 15:01 Intake & Output 11/09/19 11/10/19 11/11/19 06:59 06:59 06:59 Intake Total 1100 Balance 1100 Weight 63.9 kg General appearance: PRESENT: no acute distress, well-developed, well-nourished Head exam: PRESENT: atraumatic, normocephalic Eye exam: PRESENT: conjunctiva pink Mouth exam: PRESENT: dry mucosa Respiratory exam: PRESENT: clear to auscultation june. ABSENT: rales, rhonchi, wheezes Cardiovascular exam: PRESENT: RRR. ABSENT: diastolic murmur, rubs, systolic m urmur GI/Abdominal exam: PRESENT: distended, normal bowel sounds, soft, tenderness. ABSENT: guarding, mass, organolmegaly, rebound Rectal exam: PRESENT: deferred Neurological exam: PRESENT: alert, awake, oriented to person, oriented to place, oriented to time, oriented to situation, CN II-XII grossly intact. ABSENT: motor sensory deficit Psychiatric exam: PRESENT: appropriate affect, normal mood Skin exam: PRESENT: dry, intact, warm Results Laboratory Results: 11/10/19 12:50 11/10/19 12:50 11/10/19 11/10/19 11/10/19 12:50 12:50 12:50 WBC 0.1 L* RBC 2.34 L Hgb 8.6 L Hct 23.8 L MCV 102 H MCH 36.9 H MCHC 36.3 H RDW 16.7 H Plt Count 28 L* Seg Neutrophils % 17.5 L VBG pH 7.41 VBG pCO2 36.8 VBG HCO3 22.6 VBG Base Excess -1.7 Sodium 130.0 L Potassium 3.9 Chloride 96 L Carbon Dioxide 22 Anion Gap 12 BUN 24 H Creatinine 1.02 Est GFR ( Amer) > 60 Glucose 312 H Lactic Acid Calcium 8.9 Total Bilirubin 1.6 H AST 18 Alkaline Phosphatase 87 Total Protein 7.7 Albumin 4.0 Urine Color Urine Appearance Urine pH Ur Specific [place] Urine Protein Urine Glucose (UA) Urine Ketones Urine Blood Urine RBC (Auto) 11/10/19 11/10/19 12:50 13:21 WBC RBC Hgb Hct MCV MCH MCHC RDW Plt Count Seg Neutrophils % VBG pH VBG pCO2 VBG HCO3 VBG Base Excess Sodium Potassium Chloride Carbon Dioxide Anion Gap BUN Creatinine Est GFR ( Amer) Glucose Lactic Acid 1.9 Calcium Total Bilirubin AST Alkaline Phosphatase Total Protein Albumin Urine Color YELLOW Urine Appearance CLEAR Urine pH 6.0 Ur Specific [place] 1.011 Urine Protein NEGATIVE Urine Glucose (UA) 50 H Urine Ketones NEGATIVE Urine Blood NEGATIVE Urine RBC (Auto) 0 Impressions: Chest X-Ray 11/10/19 12:48 IMPRESSION: NO ACUTE RADIOGRAPHIC FINDING IN THE CHEST. 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, defer to them for any needs for bone marrow stimulant such as Granix (3) T2DM (type 2 diabetes mellitus) Qualifiers: Diabetes mellitus technician terminal and repeater insulin use: with technician terminal and repeater use Diabetes mellitus complication status: without complication Qualified Code(s): E11.9 - Type 2 diabetes mellitus without complications; Z79.4 - halfway (current) use of insulin Is this a current diagnosis for this admission?: Yes Plan: Takes 60 units of Lantus nightly and 8 units of lispro 3 times daily AC Restart home Lantus, sliding scale insulin, Accu-Cheks (4) HTN (hypertension) Is this a current diagnosis for this admission?: Yes Plan: Not currently taking any medications for this at home (5) Dysphagia Is this a current diagnosis for this admission?: Yes Plan: Due to head and neck cancer treatment with radiation and surgery Possible source of aspiration Speech therapy (6) Pancytopenia Is this a current diagnosis for this admission?: Yes Plan: Due to chemotherapy As above (7) Hyponatremia Is this a current diagnosis for this admission?: Yes Plan: Unclear if acute or chronic as lab values and EMR are limited to 2 years ago IV fluids Trend BMP (8) History of head and neck cancer Is this a current diagnosis for this admission?: Yes - Time Time Spent with patient: 35 or more minutes Medications reviewed and adjusted accordingly: Yes - Inpatient Certification Medical Necessity: Significant Comorbidiites Make Outpatient Treatment Too Risky, Need Close Monitoring Due to Risk of Patient Decompensation, Need for IV Antibiotics, Risk of Complication if Not Cared For in Hospital, Risk of Diagnosis Which Will Require Inpatient Eval/Care/Monitoring
--- NOTE | 2019-11-10 15:53 | ADVANCED CARE ---
- Diagnosis (1) Neutropenic fever Diagnosis Current: Yes (2) Leukemia Diagnosis Current: Yes (3) T2DM (type 2 diabetes mellitus) Diagnosis Current: Yes (4) HTN (hypertension) Diagnosis Current: Yes (5) Dysphagia Diagnosis Current: Yes (6) Pancytopenia Diagnosis Current: Yes (7) Hyponatremia Diagnosis Current: Yes (8) History of head and neck cancer Diagnosis Current: Yes Attendance: Patient Resuscitation Status: Do Not Resuscitate Discussion: All aspects of code discussed including chest compressions/cardioversion/intubation and patient states he would like to be DO NOT RESUSCITATE/DO NOT INTUBATE. 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 Time Spent: 17 minutes
[2019-11-10] MEDS ORDERED: DEXTROSE 50%-WATER SYRINGE 25 GM/50 ML DOSE IV PRN (16:00)
[2019-11-10] MEDS ORDERED: DEXTROSE 50%-WATER SYRINGE 12.5 GM/25 ML DOSE IV PRN (16:00)
[2019-11-10] MEDS ORDERED: DEXTROSE 40% GEL 15 GM TUBE X 2 PO PRN (16:00)
[2019-11-10] MEDS ORDERED: DEXTROSE 40% GEL 15 GM TUBE PO PRN (16:00)
[2019-11-10] MEDS ORDERED: GLUCAGON,HUMAN RECOMB 1 MG INJ IM PRN (16:00)
--- NOTE | 2019-11-10 16:19 | RADIOLOGY REPORT (SQ) ---
EXAM DESCRIPTION: CT CHEST WITH IMAGES COMPLETED DATE/TIME: 11/10/2019 4:06 pm REASON FOR STUDY: sepsis, unknown source COMPARISON: None. TECHNIQUE: CT scan of the chest performed using helical scanning technique with dynamic intravenous contrast injection. Images reviewed with lung, soft tissue and bone windows. Reconstructed coronal and sagittal MPR and MIP images reviewed. All images stored on PACS. All CT scanners at this facility use dose modulation, iterative reconstruction, and/or weight based d osing when appropriate to reduce radiation dose to as low as reasonably achievable (ALARA). [facility]: Dose Right [facility]: CareDose [facility]: Dose Right [facility]: Teradose 4D [facility]: SCI Solution CONTRAST TYPE AND DOSE: 73 mL Omnipaque 350- low osmolar. RENAL FUNCTION: BUN 24 creatinine 1.02. RADIATION DOSE: . LIMITATIONS: None. FINDINGS: LUNGS AND PLEURA: 1 cm nodule in the left lower lobe (axial series 4, image 30). The lung s are otherwise clear. No infiltrates. No pneumothorax. No effusions. HILAR AND MEDIASTINAL STRUCTURES: No identified masses or abnormal nodes. HEART AND VASCULAR STRUCTURES: No aneurysm or dissection. No central pulmonary emboli. No pericardi al effusion. HARDWARE: None in the chest. UPPER ABDOMEN: No significant findings. Limited exam. THYROID AND OTHER SOFT TISSUES: No masses. No adenopathy. BONES: No significant finding. OTHER: No other significant finding. IMPRESSION: 1. 1 CM NODULE IN THE LEFT LOWER LOBE. IF THE PATIENT HAS HAD PREVIOUS CHEST CT AT ANOTHER FACILITY, THEN RECOMMEND COMPARISON. IF NO PRIOR STUDIES, THEN MAY CONSIDER PET SCAN. 2. NO OTHER SIGNIFICANT FINDINGS IN THE CHEST. TECHNICAL DOCUMENTATION: JOB ID: [id number] Quality ID # [id number]: Final reports with documentation of one or more dose reduction techniques (e.g., Au tomated exposure control, adjustment of the mA and/or kV according to patient size, use of iterative reconstruction technique) 2010 [employer]- All Rights Reserved Reading location - IP/workstation name: [email or web address]
--- NOTE | 2019-11-10 16:22 | RADIOLOGY REPORT (SQ) ---
EXAM DESCRIPTION: CT ABD/PELVIS WITH IV ONLY IMAGES COMPLETED DATE/TIME: 11/10/2019 4:06 pm REASON FOR STUDY: sepsis unknown source COMPARISON: None. TECHNIQUE: CT scan of the abdomen and pelvis performed using helical scanning technique with dynamic intravenous contrast injection. No oral contrast. Images reviewed with lung, soft tissue, and bone windows. Reconstructed coronal and sagittal MPR images reviewed. Delayed images for evaluation of the urinary system also acquired. All images stored on PACS. All CT scanners at this facility use dose modulation, iterative reconstruction, and/or weight based d osing when appropriate to reduce radiation dose to as low as reasonably achievable (ALARA). [facility]: Dose Right [facility]: CareDose [facility]: Dose Right [facility]: Teradose 4D [facility]: [employer] CONTRAST TYPE AND DOSE: contrast/concentration: Isovue 350.00 mg/ml; Total Contrast Delivered: 73.0 ml; Total Saline Delivered: 66.0 ml RENAL FUNCTION: BUN 24 creatinine 1.02. RADIATION DOSE: CT Rad equipment meets quality standard of care and radiation dose reduction techniq ues were employed. CTDIvol: 6.3 - 9.1 mGy. DLP: 959 mGy-cm.. LIMITATIONS: None. FINDINGS: LOWER CHEST: See separate report of the CT of the chest. LIVER: Normal size. No masses. No dilated ducts. SPLEEN: Normal size. No focal lesions. PANCREAS: No masses. No significant calcifications. No adjacent inflammation or peripancreatic fluid collections. Pancreatic duct not dilated. GALLBLADDER: Surgically absent. ADRENAL GLANDS: No significant masses or asymmetry. RIGHT KIDNEY AND URETER: No solid masses. No significant calcifications. No hydronephrosis or hyd roureter. LEFT KIDNEY AND URETER: No solid masses. No significant calcifications. No hydronephrosis or hydr oureter. AORTA AND VESSELS: No aneurysm. No dissection. Renal arteries, SMA, celiac without stenosis. RETROPERITONEUM: No retroperitoneal adenopathy, hemorrhage or masses. BOWEL AND PERITONEAL CAVITY: No masses or inflammatory changes. No free fluid or peritoneal masses. APPENDIX: Normal. PELVIS: No mass. No free fluid. Normal bladder. ABDOMINAL WALL: No masses. No hernias. BONES: No significant or acute findings. OTHER: No other significant finding. IMPRESSION: NO SIGNIFICANT OR ACUTE FINDING IN THE ABDOMEN OR PELVIS ON CT SCAN WITH IV CONTRAST. TECHNICAL DOCUMENTATION: JOB ID: [id number] Quality ID # [id number]: Final reports with documentation of one or more dose reduction techniques (e.g., Au tomated exposure control, adjustment of the mA and/or kV according to patient size, use of iterative reconstruction technique) 2010 [employer]- All Rights Reserved Reading location - IP/workstation name: [email or web address]
[2019-11-10 18:04] LABS: ANION GAP 16 (5-19); BLOOD UREA NITROGEN 23 mg/dL (7-20); CALCIUM 8.7 mg/dL (8.4-10.2); CARBON DIOXIDE 17 mmol/L (22-30); CHLORIDE 99 mmol/L (98-107); GLUCOSE 284 mg/dL (75-110); POTASSIUM 3.8 mmol/L (3.6-5.0)
[2019-11-10] MEDS: INSULIN GLARGINE,HUM.REC.ANLOG 1,000 UNIT/10 ML VIAL SUBCUT SCH (18:06)
[2019-11-10] MEDS: INSULIN LISPRO 100 UNIT/ML 3 ML VIAL SUBCUT SCH ×2 (18:07→21:50)
[2019-11-10] MEDS: CEFEPIME HCL 2 GM in DEXTROSE 5%-WATER 50 ML IV SCH (21:50)
[2019-11-10] MEDS: SERTRALINE HCL 50 MG TABLET PO SCH (21:50)
[2019-11-10] MEDS: OLANZAPINE 5 MG TABLET PO SCH (21:50)
[2019-11-10] MEDS ORDERED: CEFEPIME 2 GM/D5W RTU 2 GM/50 ML RTUPB IV SCH (22:00)
[2019-11-11] MEDS: ACETAMINOPHEN 325 MG TABLET PO PRN ×2 (02:37→17:27)
[2019-11-11 05:05] LABS: ABSOLUTE LYMPHOCYTES (AUTO) 0.1 10^3/uL (0.5-4.7); EOSINOPHILS % (AUTO) 4.6 % (0-6); HEMATOCRIT 17.5 % (37.9-51.0); LYMPHOCYTES % (AUTO) 76.8 % (13-45); MEAN CORPUSCULAR HEMOGLOBIN 37.2 pg (27.0-33.4); MEAN CORPUSCULAR HGB CONC 36.7 g/dL (32.0-36.0); MEAN CORPUSCULAR VOLUME 101 fl (80-97); MONOCYTES % (AUTO) 7.2 % (3-13); RED BLOOD COUNT 1.73 10^6/uL (4.35-5.55); RED CELL DISTRIBUTION WIDTH 16.6 % (11.5-14.0); SEGMENTED NEUTROPHILS % (AUTO) 11.4 % (42-78); TOTAL CELLS COUNTED % (AUTO) 100 %
[2019-11-11] MEDS: VANCOMYCIN HCL 750 MG in DEXTROSE 5%-WATER 250 ML IV SCH ×2 (05:06→18:36)
[2019-11-11] MEDS: CEFEPIME HCL 2 GM in DEXTROSE 5%-WATER 50 ML IV SCH ×3 (05:06→21:41)
[2019-11-11 05:37] LABS: PLATELET COUNT 49 10^3/uL (150-450)
[2019-11-11 05:39] LABS: HEMOGLOBIN 6.4 g/dL (13.5-17.0)
[2019-11-11 05:41] LABS: ANISOCYTOSIS 1+; OVALOCYTES SLIGHT; PLATELET COMMENT DECREASED; POIKILOCYTOSIS 1+; TEAR DROP CELLS SLIGHT
[2019-11-11 05:43] LABS: WHITE BLOOD COUNT 0.1 10^3/uL (4.0-10.5)
[2019-11-11] MEDS ORDERED: VANCOMYCIN HCL INJ 1000 MG VIAL IV SCH (10:00)
[2019-11-11] MEDS: VALACYCLOVIR HCL 500 MG TABLET PO SCH (11:00)
[2019-11-11] MEDS: INSULIN LISPRO 100 UNIT/ML 3 ML VIAL SUBCUT SCH ×4 (11:00→21:46)
[2019-11-11] MEDS: DOCUSATE SODIUM 100 MG/10 ML UDC PO SCH (11:00)
[2019-11-11] MEDS ORDERED: NORMAL SALINE 250 ML IV PRN ×2 (11:18)
--- NOTE | 2019-11-11 11:40 | PDOC CONSULTATION ---
Consultation Consult Date: 11/11/19 Provider Consulted: NEREIDA HOBBS Consult reason:: Hematology/Oncology consultation was requested for patient with AML and neutropenic fever. History of Present Illness Admission Date/PCP: 11/10/19 14:46 QUOC SALDANA MD History of Present Illness: Due to COVID-19 restrictions, I have not personally examined this patient. However, I have spoked with his several times over the last 2 days, as well as various physicians caring for him in the hospital. NIDA VELASQUEZ is a 74 year old male who was diagnosed with AML in 06/2019. He also has a remote history of tongue cancer. He presented initially with pancytopenia and has required blood transfusions during his treatment. Most recently he has been receiving Venetoclax (PO) and azacitadine (IV) Most recent dose was 10/23/2019. Two days ago, patient's noted that he was having some blood tinged sputum. This was less than a Tablespoon, but later that evening, he became weak, had difficulty getting to the bathroom, and then developed a fever. He presented to the ED with neutropenic fever and pancytopenia. Over night, he received PLT transfusion, but the bleeding from the respiratory tract continues. He now remains febrile and blood clutures are growing pseudomonas. According to Hospitalist, plan is to transfer him to tertiary center for possible bronchoscopy and transfuse 2 unit pRBCs and PLTs once available. Past Medical History Cardiac Medical History: Reports: Hypertension Pulmonary Medical History: Reports: Pneumonia Endocrine Medical History: Reports: Diabetes Mellitus Type 2 Malignancy Medical History: Reports: Leukemia, Other - Head and neck cancer Musculoskeltal Medical History: Reports: Arthritis Psychiatric Medical History: Reports: Bipolar Disorder, Depression, Post Traumatic Stress Disorder Hematology: Reports: Anemia Past Surgical History Past Surgical History: Reports: Cholecystectomy, Other - Glossal resection PEG tube insertion Social History Lives with: Family, Spouse/Significant other Smoking Status: Former Smoker Electronic Cigarette use?: No Frequency of Alcohol Use: Rare Hx Recreational Drug Use: No Drugs: None Hx Prescription Drug Abuse: No - Advance Directive Resuscitation Status: Do Not Resuscitate Family History Family History: DM, Hypertension Parental Family History Reviewed: No Children Family History Reviewed: No Sibling(s) Family History Reviewed.: No Medication/Allergy Home Medications: Olanzapine [Zyprexa] 20 mg PO QHS 02/04/18 Sertraline HCl 100 mg PO QHS 02/04/18 Cefdinir 300 mg PO BID 11/10/19 Insulin Glargine,Hum.rec.anlog [Lantus Insulin 100 Unit/mL Insulin Pen] 8 units IJ QPM 11/10/19 Insulin Lispro [Humalog Kwikpen] 16 unit SQ ASDIR PRN 11/10/19 Valacyclovir HCl [Valacyclovir] 500 mg PO DAILY 11/10/19 Allergies/Adverse Reactions: morphine Allergy (Verified 11/10/19 12:57) Review of Systems ROS unobtainable: Other - Due to COVID-19 restrictions, I was not able to speak directly with the patient. Physical Exam Vital Signs: Temp Pulse Resp BP Pulse Ox 98.8 F 87 21 H 144/64 H 98 11/11/19 07:52 11/11/19 07:52 11/11/19 07:52 11/11/19 07:52 11/11/19 07:52 Intake & Output 11/10/19 11/11/19 11/12/19 06:59 06:59 06:59 Intake Total 1744 0 Balance 1744 0 Weight 63.5 kg Exam: Due to COVID-19 restrictions, I was not able to exam the patient. Results Laboratory Results: 11/11/19 04:08 11/10/19 17:30 11/10/19 11/10/19 11/10/19 12:50 12:50 12:50 WBC 0.1 L* RBC 2.34 L Hgb 8.6 L Hct 23.8 L MCV 102 H MCH 36.9 H MCHC 36.3 H RDW 16.7 H Plt Count 28 L* Seg Neutrophils % 17.5 L VBG pH 7.41 VBG pCO2 36.8 VBG HCO3 22.6 VBG Base Excess -1.7 Sodium 130.0 L Potassium 3.9 Chloride 96 L Carbon Dioxide 22 Anion Gap 12 BUN 24 H Creatinine 1.02 Est GFR ( Amer) > 60 Glucose 312 H Lactic Acid Calcium 8.9 Magnesium Total Bilirubin 1.6 H AST 18 Alkaline Phosphatase 87 Total Protein 7.7 Albumin 4.0 Lipase Urine Color Urine Appearance Urine pH Ur Specific [place] Urine Protein Urine Glucose (UA) Urine Ketones Urine Blood Urine RBC (Auto) Blood Type Antibody Screen 11/10/19 11/10/19 11/10/19 12:50 13:21 17:30 WBC RBC Hgb Hct MCV MCH MCHC RDW Plt Count Seg Neutrophils % VBG pH VBG pCO2 VBG HCO3 VBG Base Excess Sodium Potassium Chloride Carbon Dioxide Anion Gap BUN Creatinine Est GFR ( Amer) Glucose Lactic Acid 1.9 4.1 H Calcium Magnesium Total Bilirubin AST Alkaline Phosphatase Total Protein Albumin Lipase Urine Color YELLOW Urine Appearance CLEAR Urine pH 6.0 Ur Specific [place] 1.011 Urine Protein NEGATIVE Urine Glucose (UA) 50 H Urine Ketones NEGATIVE Urine Blood NEGATIVE Urine RBC (Auto) 0 Blood Type Antibody Screen 11/10/19 11/10/19 11/10/19 17:30 20:30 21:36 WBC RBC Hgb Hct MCV MCH MCHC RDW Plt Count Seg Neutrophils % VBG pH VBG pCO2 VBG HCO3 VBG Base Excess Sodium 131.7 L Potassium 3.8 Chloride 99 Carbon Dioxide 17 L Anion Gap 16 BUN 23 H Creatinine 0.88 Est GFR ( Amer) > 60 Glucose 284 H Lactic Acid 3.2 H Calcium 8.7 Magnesium Total Bilirubin AST Alkaline Phosphatase Total Protein Albumin Lipase Urine Color Urine Appearance Urine pH Ur Specific [place] Urine Protein Urine Glucose (UA) Urine Ketones Urine Blood Urine RBC (Auto) Blood Type A POSITIVE Antibody Screen NEGATIVE 11/11/19 11/11/19 04:08 04:08 WBC 0.1 L* RBC 1.73 L Hgb 6.4 L D Hct 17.5 L MCV 101 H MCH 37.2 H MCHC 36.7 H RDW 16.6 H Plt Count 49 L Seg Neutrophils % 11.4 L VBG pH VBG pCO2 VBG HCO3 VBG Base Excess Sodium Potassium Chloride Carbon Dioxide Anion Gap BUN Creatinine Est GFR ( Amer) Glucose Lactic Acid Calcium Magnesium 1.7 Total Bilirubin AST Alkaline Phosphatase Total Protein Albumin Lipase 60.7 Urine Color Urine Appearance Urine pH Ur Specific [place] Urine Protein Urine Glucose (UA) Urine Ketones Urine Blood Urine RBC (Auto) Blood Type Antibody Screen 11/10/19 12:50 Blood Blood Culture (PCR) - Final Pseudomonas Aeruginosa Impressions: Abdomen/Pelvis CT 11/10/19 00:00 IMPRESSION: NO SIGNIFICANT OR ACUTE FINDING IN THE ABDOMEN OR PELVIS ON CT SCAN WITH IV CONTRAST. Chest CT 11/10/19 00:00 IMPRESSION: 1. 1 CM NODULE IN THE LEFT LOWER LOBE. IF THE PATIENT HAS HAD PREVIOUS CHEST CT AT ANOTHER FACILITY, THEN RECOMMEND COMPARISON. IF NO PRIOR STUDIES, THEN MAY CONSIDER PET SCAN. 2. NO OTHER SIGNIFICANT FINDINGS IN THE CHEST. Chest X-Ray 11/10/19 12:48 IMPRESSION: NO ACUTE RADIOGRAPHIC FINDING IN THE CHEST. Assessment & Plan - Plan Summary Plan Summary: 1. 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 All chemo will be held. 2. Pancytopenia - transfuse pRBCs and PLTs. Although leuko-poor, irradiated is recommended, due to difficulty getting this promptly, I agree with hospitalist that there is more benefit vs. risk in transfusing regular blood instead of waiting on leuko-poor, irradiated. 3. Bacteremia with neutropenic fever due to pseudomonas. Source is yet unknown, but patient is on appropriate antibiotics and is being covered with acyclovir prophylaxis as well. He has been receiving G-CSF 300 mg sc daily - most recent was 11/09/19. I will add this today. 4. I will reach out to discuss with patient's today. Code status has been addressed with the patient. I am available for any questions and Dr. Saldana will return tomorrow.
--- NOTE | 2019-11-11 11:41 | PDOC PROGRESS REPORT ---
Subjective Progress Note for:: 11/11/19 Subjective:: Patient doing much worse today. Discussed with Dr. Mccall that patient had hemoptysis overnight of approximately 30 to 40 mL his hemoglobin also acutely dropped to 6.4 but his platelets did rise after being transfused 1 unit of these. Overnight physician ordered 2 units irradiated PRBC however these are not available yet reportedly coming from [place] and we have no idea when this will get here. Patient continues to have bleeding from his mouth and hemoptysis . He has a new area of crackles in his right mid and lower lung field. I discussed the case with ICU who had been consulted by Dr. Mccall last night and initially refused transfer. Given the continued worsening of the patient clinically and increasing oxygen requirements with high likelihood of persistent deterioration, patient has now been accepted to ICU. Patient will be transferred to ICU to ICU to [place] assuming they accept the transfer. I had a lengthy discussion with the patient and and also his /son separately. I would like patient to be made full code with the intention of him being intubated so that he can be transferred as safely as possible to a tertiary facility. They were very clear that they do not want patient to be in a persistent vegetative state or to persist on a ventilator long-term. Family and the patient agreed that he would like to be made comfortable if he continues to decline to the point where there is nothing else that can be done. At that time they would like to be notified and then make him DNR/DNI/comfort care. I spoke with Dr. Guajardo in oncology who was consulted last night. She stated that if patient is unable to get irradiated blood products that we can emergently give him non-irradiated blood products in order to save him from exsanguination. Given that we have no idea when his irradiated blood will get here, I have ordered not irradiated blood products as well and these can be canceled/not given if the irradiated blood gets here first. Patient has a very poor prognosis and there is a high chance he will not survive this hospitalization. I have communicated this to his family. They are agreeable to transfer to [facility] though they prefer [place], I explained that 2-1/2 hours in ambulance is much too far and it would put the patient at unnecessary risk. Dr. Guajardo also mentioned that patient has been getting G-CSF outpatient and she will continue this here to hopefully stimulate his bone marrow to begin producing blood cells again. This effect is likely to be days from now unfortunately. Reason For Visit: PANCYTOPENIA,HEMOPTYSIS AND NEUTROPENIC FEVER Physical Exam Vital Signs: Temp Pulse Resp BP Pulse Ox 98.8 F 87 21 H 144/64 H 98 11/11/19 07:52 11/11/19 07:52 11/11/19 07:52 11/11/19 07:52 11/11/19 07:52 Intake & Output 11/10/19 11/11/19 11/12/19 06:59 06:59 06:59 Intake Total 1744 Balance 1744 Weight 63.5 kg General appearance: PRESENT: no acute distress, well-developed, well-nourished Head exam: PRESENT: atraumatic, normocephalic Eye exam: PRESENT: conjunctiva pale Mouth exam: PRESENT: dry mucosa, other - Blood all over teeth and tongue Respiratory exam: PRESENT: crackles - Right middle and right lower lobes, rhonchi, unlabored. ABSENT: accessory muscle use, clear to auscultation june, tachypnea, wheezes Cardiovascular exam: PRESENT: RRR. ABSENT: diastolic murmur, rubs, systolic murmur GI/Abdominal exam: PRESENT: distended, normal bowel sounds, soft. ABSENT: guarding, mass, organolmegaly, rebound, tenderness Rectal exam: PRESENT: deferred Neurological exam: PRESENT: alert, awake, oriented to person, oriented to place, oriented to time, oriented to situation Psychiatric exam: PRESENT: appropriate affect, normal mood Skin exam: PRESENT: dry, intact, warm Results Laboratory Results: 11/11/19 04:08 11/10/19 17:30 11/10/19 11/10/19 11/10/19 12:50 12:50 12:50 WBC 0.1 L* RBC 2.34 L Hgb 8.6 L Hct 23.8 L MCV 102 H MCH 36.9 H MCHC 36.3 H RDW 16.7 H Plt Count 28 L* Seg Neutrophils % 17.5 L VBG pH 7.41 VBG pCO2 36.8 VBG HCO3 22.6 VBG Base Excess -1.7 Sodium 130.0 L Potassium 3.9 Chloride 96 L Carbon Dioxide 22 Anion Gap 12 BUN 24 H Creatinine 1.02 Est GFR ( Amer) > 60 Glucose 312 H Lactic Acid Calcium 8.9 Magnesium Total Bilirubin 1.6 H AST 18 Alkaline Phosphatase 87 Total Protein 7.7 Albumin 4.0 Lipase Urine Color Urine Appearance Urine pH Ur Specific [place] Urine Protein Urine Glucose (UA) Urine Ketones Urine Blood Urine RBC (Auto) Blood Type Antibody Screen 11/10/19 11/10/19 11/10/19 12:50 13:21 17:30 WBC RBC Hgb Hct MCV MCH MCHC RDW Plt Count Seg Neutrophils % VBG pH VBG pCO2 VBG HCO3 VBG Base Excess Sodium Potassium Chloride Carbon Dioxide Anion Gap BUN Creatinine Est GFR ( Amer) Glucose Lactic Acid 1.9 4.1 H Calcium Magnesium Total Bilirubin AST Alkaline Phosphatase Total Protein Albumin Lipase Urine Color YELLOW Urine Appearance CLEAR Urine pH 6.0 Ur Specific [place] 1.011 Urine Protein NEGATIVE Urine Glucose (UA) 50 H Urine Ketones NEGATIVE Urine Blood NEGATIVE Urine RBC (Auto) 0 Blood Type Antibody Screen 11/10/19 11/10/19 11/10/19 17:30 20:30 21:36 WBC RBC Hgb Hct MCV MCH MCHC RDW Plt Count Seg Neutrophils % VBG pH VBG pCO2 VBG HCO3 VBG Base Excess Sodium 131.7 L Potassium 3.8 Chloride 99 Carbon Dioxide 17 L Anion Gap 16 BUN 23 H Creatinine 0.88 Est GFR ( Amer) > 60 Glucose 284 H Lactic Acid 3.2 H Calcium 8.7 Magnesium Total Bilirubin AST Alkaline Phosphatase Total Protein Albumin Lipase Urine Color Urine Appearance Urine pH Ur Specific [place] Urine Protein Urine Glucose (UA) Urine Ketones Urine Blood Urine RBC (Auto) Blood Type A POSITIVE Antibody Screen NEGATIVE 11/11/19 11/11/19 04:08 04:08 WBC 0.1 L* RBC 1.73 L Hgb 6.4 L D Hct 17.5 L MCV 101 H MCH 37.2 H MCHC 36.7 H RDW 16.6 H Plt Count 49 L Seg Neutrophils % 11.4 L VBG pH VBG pCO2 VBG HCO3 VBG Base Excess Sodium Potassium Chloride Carbon Dioxide Anion Gap BUN Creatinine Est GFR ( Amer) Glucose Lactic Acid Calcium Magnesium 1.7 Total Bilirubin AST Alkaline Phosphatase Total Protein Albumin Lipase 60.7 Urine Color Urine Appearance Urine pH Ur Specific [place] Urine Protein Urine Glucose (UA) Urine Ketones Urine Blood Urine RBC (Auto) Blood Type Antibody Screen 11/10/19 12:50 Blood Blood Culture (PCR) - Final Pseudomonas Aeruginosa Impressions: Abdomen/Pelvis CT 11/10/19 00:00 IMPRESSION: NO SIGNIFICANT OR ACUTE FINDING IN THE ABDOMEN OR PELVIS ON CT SCAN WITH IV CONTRAST. Chest CT 11/10/19 00:00 IMPRESSION: 1. 1 CM NODULE IN THE LEFT LOWER LOBE. IF THE PATIENT HAS HAD PREVIOUS CHEST CT AT ANOTHER FACILITY, THEN RECOMMEND COMPARISON. IF NO PRIOR STUDIES, THEN MAY CONSIDER PET SCAN. 2. NO OTHER SIGNIFICANT FINDINGS IN THE CHEST. Chest X-Ray 11/10/19 12:48 IMPRESSION: NO ACUTE RADIOGRAPHIC FINDING IN THE CHEST. Assessment and Plan - Diagnosis (1) Neutropenic fever Is this a current diagnosis for this admission?: Yes Plan: Fever up to 102, tachycardic, unclear source on admission Vancomycin/cefepime started empirically on admission Blood cultures Sputum culture UA with reflex culture 11/11/2019 Growing Pseudomonas in his blood culture already which is very concerning; suspect possible pulmonary source though this was not seen on CT scan Already on vancomycin/cefepime which is continued (2) Leukemia Qualifiers: Leukemia type: myeloid Myeloid leukemia type: acute Leukemia Active/Remission status: relapsed Qualified Code(s): 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 Guajardo she will continue giving this here though we discussed that this could potentially worsen the cell production of his leukemia; benefits outweigh the risks in this case Oncology consulted, they state patient has AML diagnosed in June 2019, likely contracted this as a result of his extensive radiation treatment for his head and neck cancer previously (3) Hemoptysis Is this a current diagnosis for this admission?: Yes Plan: Started overnight/early a.m. 11/11/2019 Pulmonology consulted who stated they want patient transferred to a tertiary facility with thoracic surgery/pulmonology capabilities as the patient will potentially need to be bronched Trend CBC Transfuse hemoglobin, multiple units ordered Transfuse platelets, multiple units ordered (4) T2DM (type 2 diabetes mellitus) Qualifiers: Diabetes mellitus retirement insulin use: with director long term care use Diabetes mellitus complication status: without complication Qualified Code(s): E11.9 - Type 2 diabetes mellitus without complications; Z79.4 - longterm (current) use of insulin Is this a current diagnosis for this admission?: Yes (5) HTN (hypertension) Is this a current diagnosis for this admission?: Yes (6) Dysphagia Is this a current diagnosis for this admission?: Yes (7) Pancytopenia Is this a current diagnosis for this admission?: Yes (8) Hyponatremia Is this a current diagnosis for this admission?: Yes (9) History of head and neck cancer Is this a current diagnosis for this admission?: Yes (10) Pseudomonal bacteremia Is this a current diagnosis for this admission?: Yes Plan: Seen on blood cultures 1/2 initially Covered with cefepime (11) Acute respiratory failure with hypoxemia Is this a current diagnosis for this admission?: Yes Plan: Supplemental oxygen to maintain saturation greater than 94% - Time Time Spent with patient: 35 or more minutes Medications reviewed and adjusted accordingly: Yes Anticipated discharge: [facility] Disposition: Total critical care time spent: 40 minutes 11 AM to 11:40 AM - Inpatient Certification Based on my medical assessment, after consideration of the patient's comorbidities, presenting symptoms, or acuity I expect that the services needed warrant INPATIENT care.: Yes I certify that my determination is in accordance with my understanding of Medicare's requirements for reasonable and necessary INPATIENT services [42 CFR 412.3e].: Yes Medical Necessity: Significant Comorbidiites Make Outpatient Treatment Too Risky, Need Close Monitoring Due to Risk of Patient Decompensation, Need For IV Fluids, Need for IV Antibiotics, Risk of Complication if Not Cared For in Hospital, Risk of Diagnosis Which Will Require Inpatient Eval/Care/Monitoring
[2019-11-11] MEDS ORDERED: DEXTROSE 50%-WATER 25 GM/50 ML DISP.SYRIN IV PRN ×2 (15:05)
[2019-11-11] MEDS ORDERED: RINGERS SOLUTION,LACTATED 1,000 ML IV PRN (15:05)
[2019-11-11] MEDS ORDERED: DEXTROSE 40% GEL 15 GM TUBE PO PRN ×2 (15:05)
[2019-11-11] MEDS ORDERED: GLUCAGON,HUMAN RECOMB 1 MG INJ SUBCUT PRN (15:05)
--- NOTE | 2019-11-11 16:09 | RADIOLOGY REPORT (SQ) ---
EXAM DESCRIPTION: CT LT UPPER EXTREMITY WITHOUT IMAGES COMPLETED DATE/TIME: 11/11/2019 3:54 pm REASON FOR STUDY: cellulitis and abscess COMPARISON: None. TECHNIQUE: Axial imaging performed through the Left elbow with reformatted coronal and sagittal imaging windowed for bone and soft tissues. Images saved to PAC S. 3D IMAGING: Were 3D images as MIP, SSD, or volume rendering performed at the work station? No LIMITATIONS: None. FINDINGS: SOFT TISSUES: Cellulitis without evidence of abscess. BONY STRUCTURES: No evidence of osteomyelitis. MINERALIZATION: Normal. OTHER: No other significant finding. IMPRESSION: No evidence of abscess or osteomyelitis. Reading location - IP/workstation name: [email or web address]
--- NOTE | 2019-11-11 16:14 | CRITICAL CARE ADMISSION REPORT ---
[facility] Date:: 11/11/19 Time:: 16:25 Reason for ICU Reason:: Severe Hemoptysis HPI: 74-year-old gentleman with a history of head and neck cancer treated with radiation in the past, DM 2, history of CVA, HTN. 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 He now presents with a 3 to 4-day history of progressive cough and fever greater than 102 degrees. Patient was initially admitted to the medicine service. Overnight, he developed hemoptysis with significant blood loss. Hemoglobin decreased from 8.6 to 6.4. Patient does have pancytopenia with platelets of 28 (now 49 status post transfusion). Rule out COVID-19 labs have been sent due to his shortness of breath on presentation accompanied with fever. The intensive care unit was initially consulted for a rigid bronchoscopy and possible cauterization which we unfortunately do not have the ability to do at this facility. Steps have been made to initiate transfer to tertiary facility. Patient seen by pulmonary who recommended intubation for airway protection prior to transfer. His DNR status was temporarily rescinded to accommodate this process, however, patient's wishes are not to be kept on prolonged mechanical ventilation. A moderate sized abscess was discovered today on the lateral aspect of patient's left arm. CT scan results pending. Upon arrival to the intensive care unit, patient was in no acute distress on 4 L nasal cannula. Last episode of hemoptysis was 9 AM this morning. History obtained from:: Medical record - Diagnosis/Plan (1) Hemoptysis Is this a current diagnosis for this admission?: Yes Plan: Given the patient's hemoptysis in the setting of thrombocytopenia, the current plan is to transfer him to a tertiary care facility with possible interventional bronchoscopy. Plan will most likely be to intubate Mr. Archer to protect his airway during transfer. (2) Neutropenic fever Is this a current diagnosis for this admission?: Yes Plan: Patient started on vancomycin and cefepime for treatment of his neutropenic fever. No clear source of infection at this point. 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 Past Medical History Cardiac Medical History: Reports: Hypertension Pulmonary Medical History: Reports: Pneumonia Endocrine Medical History: Reports: Diabetes Mellitus Type 2 Malignancy Medical History: Reports: Leukemia, Other - AML, head and neck cancer Musculoskeltal Medical History: Reports: Arthritis Psychiatric Medical History: Reports: Bipolar Disorder, Depression, Post Traumatic Stress Disorder Hematology: Reports: Anemia, Neutropenia Past Surgical History Past Surgical History: Reports: Cholecystectomy, Other - Glossal resection PEG tube insertion Social/Family History - Social History Lives with: Family, Spouse/Significant other Smoking Status: Former Smoker Frequency of Alcohol Use: Rare Hx Recreational Drug Use: No Drugs: None Hx Prescription Drug Abuse: No - Medication/Allergies Home Medications: Olanzapine [Zyprexa] 20 mg PO QHS 02/04/18 Sertraline HCl 100 mg PO QHS 02/04/18 Cefdinir 300 mg PO BID 11/10/19 Insulin Glargine,Hum.rec.anlog [Lantus Insulin 100 Unit/mL Insulin Pen] 8 units IJ QPM 11/10/19 Insulin Lispro [Humalog Kwikpen] 16 unit SQ ASDIR PRN 11/10/19 Valacyclovir HCl [Valacyclovir] 500 mg PO DAILY 11/10/19 Allergies/Adverse Reactions: morphine Allergy (Verified 11/10/19 12:57) Review of Systems Review of Systems: Patient endorses a cough this morning but otherwise currently has no specific complaints other than generalized weakness. Constitutional: PRESENT: as per HPI Physical Exam Vital Signs: Temp Pulse Resp BP Pulse Ox 98.8 F 84 19 144/65 H 98 11/11/19 14:45 11/11/19 14:45 11/11/19 14:45 11/11/19 14:45 11/11/19 14:45 Intake & Output 11/10/19 11/11/19 11/12/19 06:59 06:59 06:59 Intake Total 1744 295 Output Total 875 Balance 1744 -580 Weight 63.5 kg Weight/Height Weight 63.5 kg Height 5 ft 8 in General appearance: PRESENT: no acute distress, cooperative Head exam: PRESENT: atraumatic, normocephalic Eye exam: PRESENT: EOMI, PERRLA Neck exam: ABSENT: carotid bruit, JVD, tenderness Respiratory exam: PRESENT: clear to auscultation june, unlabored. ABSENT: accessory muscle use, chest wall tenderness, crackles, prolonged expiratory phas, rales, rhonchi, wheezes Cardiovascular exam: PRESENT: RRR, +S1, +S2 Pulses: PRESENT: +2 pedal pulses bilateral Vascular exam: PRESENT: normal capillary refill GI/Abdominal exam: PRESENT: normal bowel sounds, soft. ABSENT: tenderness Musculoskeletal exam: PRESENT: normal inspection Neurological exam: PRESENT: alert, awake, oriented to person, oriented to place, oriented to time, oriented to situation, CN II-XII grossly intact Psychiatric exam: PRESENT: appropriate affect, normal mood Skin exam: PRESENT: other - Left lateral arm abscess, fluctuant, mildly draining. Laboratory/Radiographs Laboratory Results: 11/11/19 04:08 11/10/19 17:30 11/10/19 11/10/19 11/10/19 17:30 17:30 20:30 WBC RBC Hgb Hct MCV MCH MCHC RDW Plt Count Seg Neutrophils % Sodium 131.7 L Potassium 3.8 Chloride 99 Carbon Dioxide 17 L Anion Gap 16 BUN 23 H Creatinine 0.88 Est GFR ( Amer) > 60 Glucose 284 H Lactic Acid 4.1 H 3.2 H Calcium 8.7 Magnesium Lipase Blood Type Antibody Screen 11/10/19 11/11/19 11/11/19 21:36 04:08 04:08 WBC 0.1 L* RBC 1.73 L Hgb 6.4 L D Hct 17.5 L MCV 101 H MCH 37.2 H MCHC 36.7 H RDW 16.6 H Plt Count 49 L Seg Neutrophils % 11.4 L Sodium Potassium Chloride Carbon Dioxide Anion Gap BUN Creatinine Est GFR ( Amer) Glucose Lactic Acid Calcium Magnesium 1.7 Lipase 60.7 Blood Type A POSITIVE Antibody Screen NEGATIVE 11/10/19 12:50 Blood Blood Culture (PCR) - Final Pseudomonas Aeruginosa Impressions: Abdomen/Pelvis CT 11/10/19 00:00 IMPRESSION: NO SIGNIFICANT OR ACUTE FINDING IN THE ABDOMEN OR PELVIS ON CT SCAN WITH IV CONTRAST. Chest CT 11/10/19 00:00 IMPRESSION: 1. 1 CM NODULE IN THE LEFT LOWER LOBE. IF THE PATIENT HAS HAD PREVIOUS CHEST CT AT ANOTHER FACILITY, THEN RECOMMEND COMPARISON. IF NO PRIOR STUDIES, THEN MAY CONSIDER PET SCAN. 2. NO OTHER SIGNIFICANT FINDINGS IN THE CHEST. Chest X-Ray 11/10/19 12:48 IMPRESSION: NO ACUTE RADIOGRAPHIC FINDING IN THE CHEST. All labs, radiographs, diagnostic studies and EKGs were personally reviewed: Yes In addition, reports of radiographic and diagnostic studies were read: Yes Critical Time Critical Time (minutes): 65 -: The care of a critically ill patient is dynamic. This note represents a static moment in the admission process. Orders and treatments may be given simultaneously and urgently, and time is not telephone claims representative of the treatment process. This patient requires Critical Care secondary to life threatening organ or limb dysfunction. Without Critical Care services, the patient is at risk for increased mortality and morbidity.
[2019-11-11] MEDS: INSULIN GLARGINE,HUM.REC.ANLOG 1,000 UNIT/10 ML VIAL SUBCUT SCH (18:35)
[2019-11-11] MEDS ORDERED: INSULIN GLARGINE,HUM.REC.ANLOG 1,000 UNIT/10 ML VIAL (PYX) SUBCUT ONE (18:35)
[2019-11-11] MEDS ORDERED: CEFEPIME 2 GM/D5W RTU 4 GM/100 ML RTUPB IV ONE (21:24)
[2019-11-11] MEDS: OLANZAPINE 5 MG TABLET PO SCH (21:39)
[2019-11-11] MEDS: SERTRALINE HCL 50 MG TABLET PO SCH (21:39)
[2019-11-11 22:24] LABS: HEMATOCRIT 21.2 % (37.9-51.0); MEAN CORPUSCULAR HEMOGLOBIN 35.9 pg (27.0-33.4); RED BLOOD COUNT 2.21 10^6/uL (4.35-5.55); RED CELL DISTRIBUTION WIDTH 17.3 % (11.5-14.0)
[2019-11-11 22:41] LABS: MEAN CORPUSCULAR HGB CONC 37.4 g/dL (32.0-36.0)
[2019-11-11 22:42] LABS: MEAN CORPUSCULAR VOLUME 96 fl (80-97)
[2019-11-11 22:47] LABS: HEMOGLOBIN 7.9 g/dL (13.5-17.0); WHITE BLOOD COUNT 0.3 10^3/uL (4.0-10.5)
[2019-11-11 22:48] LABS: PLATELET COUNT 62 10^3/uL (150-450)
[2019-11-11 22:52] LABS: ABSOLUTE LYMPHOCYTES (AUTO) 0.2 10^3/uL (0.5-4.7); LYMPHOCYTES % (AUTO) 82.4 % (13-45); MONOCYTES % (AUTO) 2.7 % (3-13); SEGMENTED NEUTROPHILS % (AUTO) 6.9 % (42-78)
[2019-11-11 22:54] LABS: ANISOCYTOSIS 1+; OVALOCYTES 1+; PLATELET COMMENT DECREASED; POIKILOCYTOSIS 1+; TEAR DROP CELLS SLIGHT
[2019-11-12] MEDS: ACETAMINOPHEN 325 MG TABLET PO PRN ×2 (02:33→16:51)
[2019-11-12 05:10] LABS: ABSOLUTE LYMPHOCYTES (AUTO) 0.1 10^3/uL (0.5-4.7); BASOPHILS % (AUTO) 1.5 % (0-2); EOSINOPHILS % (AUTO) 15.9 % (0-6); HEMATOCRIT 21.4 % (37.9-51.0); LYMPHOCYTES % (AUTO) 71.5 % (13-45); MEAN CORPUSCULAR HEMOGLOBIN 35.2 pg (27.0-33.4); MEAN CORPUSCULAR VOLUME 95 fl (80-97); MONOCYTES % (AUTO) 4.3 % (3-13); RED BLOOD COUNT 2.26 10^6/uL (4.35-5.55); RED CELL DISTRIBUTION WIDTH 17.2 % (11.5-14.0); SEGMENTED NEUTROPHILS % (AUTO) 6.8 % (42-78); TOTAL CELLS COUNTED % (AUTO) 100 %
[2019-11-12 05:22] LABS: ALKALINE PHOSPHATASE 63 U/L (38-126); ANION GAP 8 (5-19); ASPARTATE AMINO TRANSFERASE 22 U/L (17-59); BILIRUBIN,DIRECT 0.2 mg/dL (0.0-0.4); BLOOD UREA NITROGEN 29 mg/dL (7-20); CALCIUM 8.6 mg/dL (8.4-10.2); CARBON DIOXIDE 22 mmol/L (22-30); CHLORIDE 101 mmol/L (98-107); GLUCOSE 258 mg/dL (75-110); POTASSIUM 3.2 mmol/L (3.6-5.0); TOTAL PROTEIN 6.2 g/dL (6.3-8.2)
[2019-11-12 05:27] LABS: MEAN CORPUSCULAR HGB CONC 37.2 g/dL (32.0-36.0); PLATELET COUNT 57 10^3/uL (150-450)
[2019-11-12 05:30] LABS: WHITE BLOOD COUNT 0.2 10^3/uL (4.0-10.5)
[2019-11-12 05:51] LABS: ANISOCYTOSIS 1+; OVALOCYTES 1+; PLATELET COMMENT DECREASED; POIKILOCYTOSIS 1+
[2019-11-12] MEDS: CEFEPIME HCL 2 GM in DEXTROSE 5%-WATER 50 ML IV SCH ×3 (05:56→21:03)
[2019-11-12] MEDS: VANCOMYCIN HCL 750 MG in DEXTROSE 5%-WATER 250 ML IV SCH ×2 (05:56→18:25)
[2019-11-12] MEDS: INSULIN LISPRO 100 UNIT/ML 3 ML VIAL SUBCUT SCH ×4 (06:29→23:58)
--- NOTE | 2019-11-12 08:41 | PDOC PROGRESS REPORT ---
Subjective Progress Note for:: 11/12/19 Subjective:: Discussed case w/ his ICU nurse, pt seems to be a bit better today Reason For Visit: HEMOPTYSIS Physical Exam Vital Signs: Temp Pulse Resp BP Pulse Ox 98.6 F 92 26 H 104/56 L 98 11/12/19 08:00 11/11/19 20:49 11/12/19 08:25 11/12/19 08:25 11/12/19 08:25 Intake & Output 11/11/19 11/12/19 11/13/19 06:59 06:59 06:59 Intake Total 1744 1295 Output Total 1935 60 Balance 1744 -640 -60 Weight 63.5 kg 71.6 kg Results Laboratory Results: 11/12/19 04:53 11/12/19 04:53 11/10/19 11/11/19 11/12/19 21:36 22:10 04:53 WBC 0.3 L* RBC 2.21 L Hgb 7.9 L Hct 21.2 L MCV 96 D MCH 35.9 H MCHC 37.4 H RDW 17.3 H Plt Count 62 L Seg Neutrophils % 6.9 L Sodium 131.4 L Potassium 3.2 L Chloride 101 Carbon Dioxide 22 Anion Gap 8 BUN 29 H Creatinine 0.92 Est GFR ( Amer) > 60 Glucose 258 H Calcium 8.6 Total Bilirubin 2.0 H AST 22 Alkaline Phosphatase 63 Total Protein 6.2 L Albumin 3.0 L Blood Type A POSITIVE Antibody Screen NEGATIVE 11/12/19 04:53 WBC 0.2 L* RBC 2.26 L Hgb 8.0 L Hct 21.4 L MCV 95 MCH 35.2 H MCHC 37.2 H RDW 17.2 H Plt Count 57 L Seg Neutrophils % 6.8 L Sodium Potassium Chloride Carbon Dioxide Anion Gap BUN Creatinine Est GFR ( Amer) Glucose Calcium Total Bilirubin AST Alkaline Phosphatase Total Protein Albumin Blood Type Antibody Screen 11/10/19 12:50 Blood Blood Culture (PCR) - Final Pseudomonas Aeruginosa Impressions: Abdomen/Pelvis CT 11/10/19 00:00 IMPRESSION: NO SIGNIFICANT OR ACUTE FINDING IN THE ABDOMEN OR PELVIS ON CT SCAN WITH IV CONTRAST. Chest CT 11/10/19 00:00 IMPRESSION: 1. 1 CM NODULE IN THE LEFT LOWER LOBE. IF THE PATIENT HAS HAD PREVIOUS CHEST CT AT ANOTHER FACILITY, THEN RECOMMEND COMPARISON. IF NO PRIOR STUDIES, THEN MAY CONSIDER PET SCAN. 2. NO OTHER SIGNIFICANT FINDINGS IN THE CHEST. Chest X-Ray 11/10/19 12:48 IMPRESSION: NO ACUTE RADIOGRAPHIC FINDING IN THE CHEST. Upper Extremity CT 11/11/19 00:00 IMPRESSION: No evidence of abscess or osteomyelitis. 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 He seems better today, Will follow. Keep hb >7 and plt >50 (as long as hemoptysis present) - Time Time Spent with patient: 15-24 minutes
[2019-11-12] MEDS: FILGRASTIM INJ 300 MCG/1 ML VIAL SUBCUT SCH (10:40)
[2019-11-12] MEDS: DOCUSATE SODIUM 100 MG/10 ML UDC PO SCH (10:40)
[2019-11-12] MEDS: VALACYCLOVIR HCL 500 MG TABLET PO SCH (10:41)
[2019-11-12 11:40] LABS: PATH REVIEW PATHOLOGIST REVIEWED
[2019-11-12 12:34] LABS: HEMATOCRIT 23.7 % (37.9-51.0); HEMOGLOBIN 8.6 g/dL (13.5-17.0); MEAN CORPUSCULAR HGB CONC 36.3 g/dL (32.0-36.0); MEAN CORPUSCULAR VOLUME 96 fl (80-97); RED BLOOD COUNT 2.46 10^6/uL (4.35-5.55); RED CELL DISTRIBUTION WIDTH 17.5 % (11.5-14.0)
[2019-11-12 13:23] LABS: PLATELET COUNT 60 10^3/uL (150-450)
[2019-11-12 13:25] LABS: WHITE BLOOD COUNT 0.2 10^3/uL (4.0-10.5)
[2019-11-12] MEDS: POTASSIUM CHLORIDE 20 MEQ/50 ML RTU IV SCH ×2 (14:01→15:33)
[2019-11-12] MEDS: INSULIN GLARGINE,HUM.REC.ANLOG 1,000 UNIT/10 ML VIAL SUBCUT SCH (17:06)
--- NOTE | 2019-11-12 17:37 | PDOC CRITICAL CARE PROG REPORT ---
General Date:: 11/12/19 ICU Day:: 1 Resuscitation Status: Other - Patient and family have expressed wishes to have a DNR status. He was made full code to facilitate intubation for transport when h e was having issues with hemoptysis. These issues have since subsided. Review of systems relevant to events:: Please see complete review of systems below. Reason for ICU Addmission:: Severe Hemoptysis - Medications: Medications reviewed and adjusted accordingly: Yes Physical Exam Vital Signs: Temp Pulse Resp BP Pulse Ox 100.1 F 70 15 161/63 H 98 11/12/19 16:00 11/12/19 08:49 11/12/19 16:25 11/12/19 16:25 11/12/19 16:25 Intake & Output 11/11/19 11/12/19 11/13/19 06:59 06:59 06:59 Intake Total 1744 1345 1338 Output Total 1935 520 Balance 1744 -590 818 Weight 63.5 kg 71.6 kg 71.6 kg Weight/Height Weight 71.6 kg Height 5 ft 8 in General appearance: PRESENT: no acute distress Head exam: PRESENT: atraumatic Eye exam: PRESENT: EOMI, PERRLA Ear exam: ABSENT: bleeding Mouth exam: PRESENT: moist Neck exam: PRESENT: full ROM Respiratory exam: PRESENT: other - Mild scattered rhonchi.. ABSENT: accessory m uscle use Cardiovascular exam: PRESENT: RRR, +S1, +S2 Pulses: PRESENT: normal carotid pulses, +2 pedal pulses bilateral Vascular exam: PRESENT: normal capillary refill GI/Abdominal exam: PRESENT: normal bowel sounds, soft. ABSENT: tenderness Extremities exam: PRESENT: joint swelling, other - Left lateral arm swelling. No significant change. Musculoskeletal exam: PRESENT: full ROM, normal inspection. ABSENT: tenderness Neurological exam: PRESENT: alert, awake, oriented to person, oriented to place, oriented to time, oriented to situation, CN II-XII grossly intact Psychiatric exam: PRESENT: appropriate affect Skin exam: PRESENT: other - Left lateral arm swelling with mild drainage. No significant change. Laboratory/Radiographs Laboratory Results: 11/12/19 12:20 11/12/19 04:53 11/10/19 11/11/19 11/12/19 21:36 22:10 04:53 WBC 0.3 L* RBC 2.21 L Hgb 7.9 L Hct 21.2 L MCV 96 D MCH 35.9 H MCHC 37.4 H RDW 17.3 H Plt Count 62 L Seg Neutrophils % 6.9 L Sodium 131.4 L Potassium 3.2 L Chloride 101 Carbon Dioxide 22 Anion Gap 8 BUN 29 H Creatinine 0.92 Est GFR ( Amer) > 60 Glucose 258 H Calcium 8.6 Total Bilirubin 2.0 H AST 22 Alkaline Phosphatase 63 Total Protein 6.2 L Albumin 3.0 L Blood Type A POSITIVE Antibody Screen NEGATIVE 11/12/19 11/12/19 04:53 12:20 WBC 0.2 L* 0.2 L* RBC 2.26 L 2.46 L Hgb 8.0 L 8.6 L Hct 21.4 L 23.7 L MCV 95 96 MCH 35.2 H 35.0 H MCHC 37.2 H 36.3 H RDW 17.2 H 17.5 H Plt Count 57 L 60 L Seg Neutrophils % 6.8 L Sodium Potassium Chloride Carbon Dioxide Anion Gap BUN Creatinine Est GFR ( Amer) Glucose Calcium Total Bilirubin AST Alkaline Phosphatase Total Protein Albumin Blood Type Antibody Screen 11/10/19 12:50 Blood Blood Culture (PCR) - Final Pseudomonas Aeruginosa Impressions: Abdomen/Pelvis CT 11/10/19 00:00 IMPRESSION: NO SIGNIFICANT OR ACUTE FINDING IN THE ABDOMEN OR PELVIS ON CT SCAN WITH IV CONTRAST. Chest CT 11/10/19 00:00 IMPRESSION: 1. 1 CM NODULE IN THE LEFT LOWER LOBE. IF THE PATIENT HAS HAD PREVIOUS CHEST CT AT ANOTHER FACILITY, THEN RECOMMEND COMPARISON. IF NO PRIOR STUDIES, THEN MAY CONSIDER PET SCAN. 2. NO OTHER SIGNIFICANT FINDINGS IN THE CHEST. Chest X-Ray 11/10/19 12:48 IMPRESSION: NO ACUTE RADIOGRAPHIC FINDING IN THE CHEST. Upper Extremity CT 11/11/19 00:00 IMPRESSION: No evidence of abscess or osteomyelitis. All labs, radiographs, diagnostic studies and EKGs were personally reviewed: Yes In addition, reports of radiographic and diagnostic studies were read: Yes Assessment and Plan - Diagnosis (1) Hemoptysis Is this a current diagnosis for this admission?: Yes Plan: No further hemoptysis since yesterday morning. (2) Neutropenic fever Is this a current diagnosis for this admission?: Yes Plan: Patient was intermittently mildly febrile today. Resolved with Tylenol. (3) Diabetes mellitus Qualifiers: Diabetes mellitus type: type 2 Diabetes mellitus snf insulin use: with snf use Is this a current diagnosis for this admission?: Yes Plan: Continue regular insulin sliding scale. Plan Summary: ICU day: 1 Neuro: Patient is awake and alert and seems to understand his condition. He was a bit confused and did not realize he was in the intensive care unit but understood that he was in the hospital for issues relating to his chemotherapy. Pulmonary: Patient was initially admitted for airway management. Not found to have any significant hemoptysis after platelet administration yesterday. I do not anticipate any further bleeding now that his platelet level has improved. He may have some scattered rhonchi and would be at risk of developing pneumonia given his poor immunity and residual blood in his bronchial system. Patient weaned off of all supplemental oxygen. Cardiovascular: No significant cardiovascular history. No apparent issues. Blood pressure and heart rate have remained stable. Heme: H&H has improved significantly since product administration yesterday. H&H: 8.6/23.7. Platelet count up to 60. Renal: Hypokalemic this morning. Potassium repletion held until repeat CBC to first determine whether more blood products were required. As he no longer needs further PRBCs, we will obtain repeat renal panel and likely need to replete potassium. Gastrointestinal: Patient had difficulty swallowing today and should remain on aspiration precautions with formal swallow study ID: Neutropenic fever. Patient continues on valacyclovir, vancomycin and cefepime. Barriers to discharge from ICU: Patient is appropriate to transfer from the intensive care unit back to a medicine floor. As above, I would place on aspiration precautions and study further. No further hemoptysis. I would not recommend transfer to an outside intensive care unit at this time and would not recommend intubation for transfer given that his hemoptysis subsided. We will need to monitor platelet level and transfuse if necessary. Critical Time Critical Time (minutes): 45 Level of Care: ICU -: 1. The care of a critical patient is a dynamic process. This note is a event sales representative synopsis but static in nature. The timeframe for treatments given in order is not necessarily the actual time these treatments may have been done. 2. This patient requires critical care secondary to ongoing requirements for th erapy not offered or safe outside the critical care environment. Transfer to a lower level of care will result in altered life or limb morbidity and mortality. 3. Multidisciplinary rounds completed. 4. ABCDE bundle addressed.
[2019-11-12 18:11] LABS: ANION GAP 9 (5-19); BLOOD UREA NITROGEN 27 mg/dL (7-20); CALCIUM 8.4 mg/dL (8.4-10.2); CARBON DIOXIDE 22 mmol/L (22-30); CHLORIDE 98 mmol/L (98-107); GLUCOSE 334 mg/dL (75-110)
[2019-11-12 18:15] LABS: VANCOMYCIN,TROUGH 10.3 ug/mL (5.0-20.0)
[2019-11-12] MEDS: OLANZAPINE 5 MG TABLET PO SCH (21:03)
[2019-11-12] MEDS: SERTRALINE HCL 50 MG TABLET PO SCH (21:03)
[2019-11-13] MEDS ORDERED: VANCOMYCIN HCL 1,000 MG in DEXTROSE 5%-WATER 250 ML IV SCH ×2 (06:00→18:00)
[2019-11-13 06:07] LABS: ABSOLUTE LYMPHOCYTES (AUTO) 0.2 10^3/uL (0.5-4.7); EOSINOPHILS % (AUTO) 11.4 % (0-6); HEMATOCRIT 21.5 % (37.9-51.0); HEMOGLOBIN 8.2 g/dL (13.5-17.0); LYMPHOCYTES % (AUTO) 78.1 % (13-45); MEAN CORPUSCULAR HEMOGLOBIN 36.9 pg (27.0-33.4); MEAN CORPUSCULAR VOLUME 98 fl (80-97); MONOCYTES % (AUTO) 4.4 % (3-13); RED BLOOD COUNT 2.21 10^6/uL (4.35-5.55); RED CELL DISTRIBUTION WIDTH 16.9 % (11.5-14.0); SEGMENTED NEUTROPHILS % (AUTO) 6.1 % (42-78); TOTAL CELLS COUNTED % (AUTO) 100 %
[2019-11-13 06:38] LABS: MEAN CORPUSCULAR HGB CONC 37.8 g/dL (32.0-36.0)
[2019-11-13 06:45] LABS: PLATELET COUNT 47 10^3/uL (150-450)
[2019-11-13] MEDS: CEFEPIME HCL 2 GM in DEXTROSE 5%-WATER 50 ML IV SCH ×3 (06:47→21:53)
[2019-11-13] MEDS: INSULIN LISPRO 100 UNIT/ML 3 ML VIAL SUBCUT SCH ×4 (06:48→21:52)
[2019-11-13 06:52] LABS: WHITE BLOOD COUNT 0.2 10^3/uL (4.0-10.5)
[2019-11-13 06:55] LABS: ANISOCYTOSIS 1+; OVALOCYTES SLIGHT; PLATELET COMMENT DECREASED; POIKILOCYTOSIS SLIGHT
--- NOTE | 2019-11-13 09:42 | PDOC PROGRESS REPORT ---
Subjective Progress Note for:: 11/13/19 Subjective:: Pt is physically better per nursing today. STill w/ low grade temp. Also having some swallowing issues Reason For Visit: HEMOPTYSIS Physical Exam Vital Signs: Temp Pulse Resp BP Pulse Ox 99.2 F 84 16 132/53 H 98 11/13/19 08:00 11/13/19 08:00 11/13/19 08:00 11/13/19 08:00 11/13/19 08:00 Intake & Output 11/12/19 11/13/19 11/14/19 06:59 06:59 06:59 Intake Total 1345 2048 300 Output Total 1935 1595 Balance -590 453 300 Weight 71.6 kg 75.7 kg Results Laboratory Results: 11/13/19 04:43 11/12/19 17:42 11/12/19 11/12/19 11/12/19 12:20 17:42 17:42 WBC 0.2 L* RBC 2.46 L Hgb 8.6 L Hct 23.7 L MCV 96 MCH 35.0 H MCHC 36.3 H RDW 17.5 H Plt Count 60 L Seg Neutrophils % Sodium 128.5 L Potassium 4.0 Chloride 98 Carbon Dioxide 22 Anion Gap 9 BUN 27 H Creatinine Cancelled 0.85 Est GFR ( Amer) Cancelled > 60 Est GFR (Non-Af Amer) Cancelled Glucose 334 H Calcium 8.4 11/13/19 04:43 WBC 0.2 L* RBC 2.21 L Hgb 8.2 L Hct 21.5 L MCV 98 H MCH 36.9 H MCHC 37.8 H RDW 16.9 H Plt Count 47 L Seg Neutrophils % 6.1 L Sodium Potassium Chloride Carbon Dioxide Anion Gap BUN Creatinine Est GFR ( Amer) Est GFR (Non-Af Amer) Glucose Calcium 11/10/19 12:50 Blood Blood Culture (PCR) - Final Pseudomonas Aeruginosa 11/10/19 12:50 Blood Blood Culture - Final Pseudomonas Aeruginosa 11/10/19 21:37 Sputum Gram Stain - Final 11/10/19 21:37 Sputum Sputum Culture - Final Pseudomonas Aeruginosa C.albicans/C.dubliniensis Normal Carin Absent Impressions: Abdomen/Pelvis CT 11/10/19 00:00 IMPRESSION: NO SIGNIFICANT OR ACUTE FINDING IN THE ABDOMEN OR PELVIS ON CT SCAN WITH IV CONTRAST. Chest CT 11/10/19 00:00 IMPRESSION: 1. 1 CM NODULE IN THE LEFT LOWER LOBE. IF THE PATIENT HAS HAD PREVIOUS CHEST CT AT ANOTHER FACILITY, THEN RECOMMEND COMPARISON. IF NO PRIOR STUDIES, THEN MAY CONSIDER PET SCAN. 2. NO OTHER SIGNIFICANT FINDINGS IN THE CHEST. Chest X-Ray 11/10/19 12:48 IMPRESSION: NO ACUTE RADIOGRAPHIC FINDING IN THE CHEST. Upper Extremity CT 11/11/19 00:00 IMPRESSION: No evidence of abscess or osteomyelitis. 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 (2) Pseudomonas sepsis Qualifiers: Sepsis acute organ dysfunction status: without acute organ dysfunction Qualified Code(s): A41.52 - Sepsis due to Pseudomonas Is this a current diagnosis for this admission?: Yes Plan: Pansensitive, d/c vancomycin today, repeat bld cx to see if if cleared, cont cefepime. Told nursing to add levaquin allergy to profile, he had seizures w/ levaquin in past given by our office. He should not received that drug any longer. (3) Pancytopenia Is this a current diagnosis for this admission?: Yes Plan: plt decreased, monitor daily, no need for transfusion right now (4) Dysphagia Qualifiers: Dysphagia type: oropharyngeal phase Qualified Code(s): R13.12 - Dysphagia, oropharyngeal phase Is this a current diagnosis for this admission?: Yes Plan: Has some dysphagia long standing, worsened here, had nursing put in speech eval for pt (5) Physical deconditioning Is this a current diagnosis for this admission?: Yes Plan: related to admission, placed PT consult - Time Time Spent with patient: 15-24 minutes
[2019-11-13] MEDS: DOCUSATE SODIUM 100 MG/10 ML UDC PO SCH (10:25)
[2019-11-13] MEDS: FILGRASTIM INJ 300 MCG/1 ML VIAL SUBCUT SCH (10:25)
[2019-11-13] MEDS: VALACYCLOVIR HCL 500 MG TABLET PO SCH (10:25)
[2019-11-13 11:47] LABS: ABSOLUTE LYMPHOCYTES (AUTO) 0.1 10^3/uL (0.5-4.7); BASOPHILS % (AUTO) 1.2 % (0-2); EOSINOPHILS % (AUTO) 11.9 % (0-6); HEMATOCRIT 21.5 % (37.9-51.0); LYMPHOCYTES % (AUTO) 71.1 % (13-45); MEAN CORPUSCULAR HEMOGLOBIN 35.7 pg (27.0-33.4); MEAN CORPUSCULAR VOLUME 96 fl (80-97); MONOCYTES % (AUTO) 10.2 % (3-13); RED BLOOD COUNT 2.23 10^6/uL (4.35-5.55); RED CELL DISTRIBUTION WIDTH 17.2 % (11.5-14.0); SEGMENTED NEUTROPHILS % (AUTO) 5.6 % (42-78); TOTAL CELLS COUNTED % (AUTO) 100 %
[2019-11-13 12:20] LABS: PLATELET COUNT 39 10^3/uL (150-450)
[2019-11-13 12:22] LABS: ANISOCYTOSIS 1+; OVALOCYTES SLIGHT; POIKILOCYTOSIS SLIGHT; SCHISTOCYTES SLIGHT; TEAR DROP CELLS SLIGHT
[2019-11-13 12:23] LABS: PLATELET COMMENT DECREASED; WHITE BLOOD COUNT 0.2 10^3/uL (4.0-10.5)
[2019-11-13] MEDS: ACETAMINOPHEN 325 MG TABLET PO PRN (15:29)
--- NOTE | 2019-11-13 15:38 | PDOC PROGRESS REPORT ---
Subjective Progress Note for:: 11/13/19 Subjective:: No adverse events overnight. Had a temperature of 100 F this morning. He said he feels pretty good today. Appetite is fair. Reason For Visit: HEMOPTYSIS Physical Exam Vital Signs: Temp Pulse Resp BP Pulse Ox 99.2 F 84 16 132/53 H 98 11/13/19 08:00 11/13/19 08:00 11/13/19 08:00 11/13/19 08:00 11/13/19 08:00 Intake & Output 11/12/19 11/13/19 11/14/19 06:59 06:59 06:59 Intake Total 1345 2048 660 Output Total 1935 1595 650 Balance -590 453 10 Weight 71.6 kg 75.7 kg General appearance: PRESENT: no acute distress, cooperative, disheveled Respiratory exam: PRESENT: clear to auscultation june, symmetrical, unlabored. ABSENT: accessory muscle use, chest wall tenderness, crackles, prolonged expiratory phas, retraction, rhonchi, tachypnea, wheezes Cardiovascular exam: PRESENT: RRR, +S1, +S2 Pulses: PRESENT: normal carotid pulses Vascular exam: PRESENT: normal capillary refill GI/Abdominal exam: PRESENT: normal bowel sounds, soft. ABSENT: distended, guarding, rebound, tenderness Extremities exam: ABSENT: clubbing, pedal edema Musculoskeletal exam: PRESENT: normal inspection. ABSENT: deformity Neurological exam: PRESENT: alert, awake, oriented to person, oriented to place, oriented to situation Psychiatric exam: PRESENT: appropriate affect, normal mood Skin exam: PRESENT: dry, warm Results Laboratory Results: 11/13/19 11:27 11/12/19 17:42 11/12/19 11/12/19 11/13/19 17:42 17:42 04:43 WBC 0.2 L* RBC 2.21 L Hgb 8.2 L Hct 21.5 L MCV 98 H MCH 36.9 H MCHC 37.8 H RDW 16.9 H Plt Count 47 L Seg Neutrophils % 6.1 L Sodium 128.5 L Potassium 4.0 Chloride 98 Carbon Dioxide 22 Anion Gap 9 BUN 27 H Creatinine Cancelled 0.85 Est GFR ( Amer) Cancelled > 60 Est GFR (Non-Af Amer) Cancelled Glucose 334 H Calcium 8.4 11/13/19 11/13/19 10:10 11:27 WBC Cancelled 0.2 L* RBC Cancelled 2.23 L Hgb Cancelled 8.0 L Hct Cancelled 21.5 L MCV Cancelled 96 MCH Cancelled 35.7 H MCHC Cancelled 37.0 H RDW Cancelled 17.2 H Plt Count Cancelled 39 L Seg Neutrophils % Cancelled 5.6 L Sodium Potassium Chloride Carbon Dioxide Anion Gap BUN Creatinine Est GFR ( Amer) Est GFR (Non-Af Amer) Glucose Calcium 11/10/19 12:50 Blood Blood Culture (PCR) - Final Pseudomonas Aeruginosa 11/10/19 12:50 Blood Blood Culture - Final Pseudomonas Aeruginosa 11/10/19 21:37 Sputum Gram Stain - Final 11/10/19 21:37 Sputum Sputum Culture - Final Pseudomonas Aeruginosa C.albicans/C.dubliniensis Normal Carin Absent Impressions: Abdomen/Pelvis CT 11/10/19 00:00 IMPRESSION: NO SIGNIFICANT OR ACUTE FINDING IN THE ABDOMEN OR PELVIS ON CT SCAN WITH IV CONTRAST. Chest CT 11/10/19 00:00 IMPRESSION: 1. 1 CM NODULE IN THE LEFT LOWER LOBE. IF THE PATIENT HAS HAD PREVIOUS CHEST CT AT ANOTHER FACILITY, THEN RECOMMEND COMPARISON. IF NO PRIOR STUDIES, THEN MAY CONSIDER PET SCAN. 2. NO OTHER SIGNIFICANT FINDINGS IN THE CHEST. Chest X-Ray 11/10/19 12:48 IMPRESSION: NO ACUTE RADIOGRAPHIC FINDING IN THE CHEST. Upper Extremity CT 11/11/19 00:00 IMPRESSION: No evidence of abscess or osteomyelitis. Assessment and Plan - Diagnosis (1) Pseudomonas pneumonia Qualifiers: Laterality: unspecified laterality Lung location: unspecified part of lung Qualified Code(s): J15.1 - Pneumonia due to Pseudomonas Is this a current diagnosis for this admission?: Yes Plan: He grew a pansensitive Pseudomonas out of his sputum culture. Currently on cefepime. I would like to switch him over to fluoroquinolone but apparently he has had a very bad reaction to Levaquin in the past. 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 On cefepime as noted above. - Time Time Spent with patient: 15-24 minutes
[2019-11-13] MEDS: INSULIN GLARGINE,HUM.REC.ANLOG 1,000 UNIT/10 ML VIAL SUBCUT SCH (17:55)
[2019-11-13] MEDS: SERTRALINE HCL 50 MG TABLET PO SCH (21:53)
[2019-11-13] MEDS: OLANZAPINE 5 MG TABLET PO SCH (21:53)
[2019-11-14] MEDS: CEFEPIME HCL 2 GM in DEXTROSE 5%-WATER 50 ML IV SCH ×3 (05:50→21:38)
[2019-11-14] MEDS: ACETAMINOPHEN 325 MG TABLET PO PRN ×2 (05:55→16:18)
[2019-11-14] MEDS: INSULIN LISPRO 100 UNIT/ML 3 ML VIAL SUBCUT SCH ×6 (07:32→21:38)
--- NOTE | 2019-11-14 08:33 | PDOC PROGRESS REPORT ---
Subjective Progress Note for:: 11/14/19 Subjective:: No acute events overnight, had long discussion w/ yesterday, also had long discussion w/ Dr. Mckinley, his hospitalist Reason For Visit: HEMOPTYSIS Physical Exam Vital Signs: Temp Pulse Resp BP Pulse Ox 99.3 F 87 18 153/63 H 97 11/14/19 07:31 11/13/19 23:52 11/13/19 23:52 11/13/19 23:52 11/13/19 23:52 Intake & Output 11/13/19 11/14/19 11/15/19 06:59 06:59 06:59 Intake Total 2047 1240 Output Total 1595 2050 Balance 453 -810 Weight 75.7 kg 74.7 kg Results Laboratory Results: 11/13/19 11:27 11/12/19 17:42 11/13/19 11/13/19 10:10 11:27 WBC Cancelled 0.2 L* RBC Cancelled 2.23 L Hgb Cancelled 8.0 L Hct Cancelled 21.5 L MCV Cancelled 96 MCH Cancelled 35.7 H MCHC Cancelled 37.0 H RDW Cancelled 17.2 H Plt Count Cancelled 39 L Seg Neutrophils % Cancelled 5.6 L 11/10/19 12:50 Blood Blood Culture (PCR) - Final Pseudomonas Aeruginosa 11/10/19 12:50 Blood Blood Culture - Final Pseudomonas Aeruginosa 11/10/19 21:37 Sputum Gram Stain - Final 11/10/19 21:37 Sputum Sputum Culture - Final Pseudomonas Aeruginosa C.albicans/C.dubliniensis Normal Carin Absent Impressions: Abdomen/Pelvis CT 11/10/19 00:00 IMPRESSION: NO SIGNIFICANT OR ACUTE FINDING IN THE ABDOMEN OR PELVIS ON CT SCAN WITH IV CONTRAST. Chest CT 11/10/19 00:00 IMPRESSION: 1. 1 CM NODULE IN THE LEFT LOWER LOBE. IF THE PATIENT HAS HAD PREVIOUS CHEST CT AT ANOTHER FACILITY, THEN RECOMMEND COMPARISON. IF NO PRIOR STUDIES, THEN MAY CONSIDER PET SCAN. 2. NO OTHER SIGNIFICANT FINDINGS IN THE CHEST. Chest X-Ray 11/10/19 12:48 IMPRESSION: NO ACUTE RADIOGRAPHIC FINDING IN THE CHEST. Upper Extremity CT 11/11/19 00:00 IMPRESSION: No evidence of abscess or osteomyelitis. 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 If no improvement and worsening, we should consider going towards a comfort care approach. Also discussion code status with who noted as I did that pt previously wanted to be do not intubate. But this was changed b/c of the hemoptysis and possibility of requiring bronchoscopy. B/c of that he agreed to change status. But now we should readdress w/ pt to see if he wants to be DNI at least. (2) Pseudomonas sepsis Qualifiers: Sepsis acute organ dysfunction status: without acute organ dysfunction Qualified Code(s): A41.52 - Sepsis due to Pseudomonas Is this a current diagnosis for this admission?: Yes Plan: cont cefepime for now (3) Pancytopenia Is this a current diagnosis for this admission?: Yes Plan: Transfusion plt if <15, hb <7 (4) Dysphagia Qualifiers: Dysphagia type: oropharyngeal phase Qualified Code(s): R13.12 - Dysphagia, oropharyngeal phase Is this a current diagnosis for this admission?: Yes Plan: speech eval (5) Physical deconditioning Is this a current diagnosis for this admission?: Yes Plan: PT evaluated before and feel he is ambulatory - Time Time Spent with patient: 15-24 minutes
[2019-11-14] MEDS: FILGRASTIM INJ 300 MCG/1 ML VIAL SUBCUT SCH (09:47)
[2019-11-14] MEDS: DOCUSATE SODIUM 100 MG CAPSULE PO SCH (09:47)
[2019-11-14] MEDS: VALACYCLOVIR HCL 500 MG TABLET PO SCH (09:48)
--- NOTE | 2019-11-14 10:37 | ST Inp Modified Barium Swallow ---
Medical Diagnosis - Medical Diagnoses Medical Diagnosis Description & ICD-10 Code(s): neutropenic fever, dysphagia - ICD-10 Tx Diagnosis Coding (1) Dysphagia ICD-10 Code(s): R13.10 - DYSPHAGIA, UNSPECIFIED (2) History of head and neck cancer ICD-10 Code(s): Z85.89 - PERSONAL HISTORY OF MALIGNANT NEOPLASM OF ORGANS AND SYSTEMS ST Inpatient MBS - General Date: 11/14/19 Date of Onset: 11/10/19 - admission date - History -: Medical - per EMR: patient admitted 11/09 with progressive productive cough and fever. Chest x-ray at that time was unremarkable. Patient has history of leukemia on chemotherapy, and hisotry of head and neck cancer, for which he received radiation therapy. Patient also has history of diabetes, CVA, hypertension. Nursing note shows patient was demonstrating some coughing with liquids on 11/11, patient was moved to honey thick liquids at that time. Speech therapy evaluation was ordered on 11/12. Therapist spoke with patient, who states he had tongue cancer with radiation treatment but no surgery, and that he had previously had a feeding tube but does not any longer. Given history of head/neck cancer and radiation to that area, MBSS was recommended over bedside clinical swallow evaluation. Of note: after the study, therapist found a report from an esophageal study on 05/09/18 which describes patient with poor oral control of bolus and aspiration of liquid barium throughout study. Medications: Medications Reviewed Allergies: Refer to medical record - Subjective Current Nutritional Means: PO Current PO Diet: Soft, Thickened liquids - honey Current Symptoms: Coughing Pain: Patient reports, 0/5 - Objective Assessment: Upright, Left Lateral - Food Trials Food Trials Used: Thin liquids, Pureed The Patient: Was Able to Self Feed - Assessment Labial Function: Within Normal Limits Lingual Function: Impaired - reduced base of tongue retraction Mandibular Function: Within Normal Limits Dentition: Edentulous Velo-Pharyngeal Function: Unremarkable - Pharyngeal Stage Initiation of Pharyngeal Stage: Delayed - bolus freely flowed into pharyngeal cavity from oral, fully established in pyriform sinus prior to swallow initiation. Bolus also seen to enter laryngeal vestibule prior to the swallow. Reduced Velo-Pharyngeal Closure: no Reduced Pressure Generation: Yes Reduced Tongue Base Retraction: Yes Pre-Swallowing Pooling in Valleculae: Significant Pre-Swallowing Pooling in Pyriforms: Significant Reduced Epiglottic Excursion: Yes Multiple Swallows With: Ineffective Clearance Post Swallow Residuals in Valleculae: Moderate Post Swallow Residuals in Pyriforms: Significant Pahryngeal Stage Comments: Patient demonstrated overall impaired pharyngeal swallow. Delayed initiation of the swallow observed, as well as reduced base of tongue retraction, nearly absent epiglottic inversion, and poor pharyngeal constriction. Before and during the swallow, material was seen to penetrate deep into the laryngeal vestibule, to the level of the vocal folds, possible trace aspiration below. After the swallow, significant residue was seen in valleculae and pyriform sinus. Post swallow residuals seen to spill from pyriform sinus into laryngeal vestibule, with gustavo aspiration seen on residuals. Residuals increased significantly as texture increased. Patient was unable to clear residuals with subsequent swallows. Cough reflex was seen in reaction to aspiration, however, patient unable to clear aspirated material. - Impression/Summary Laryngeal Penetration: Yes Tracheal Aspiration: yes - Patient was noted to aspirate on thin liquids, as well as on puree solids. Study was stopped after these trials due to the large amount of material that was aspirated (even though limited trials were given), as well as the implication of aspiration on these two ends of the texture spectrum. Productive Cough: No Effective Clearing: no Patient Presents With: Oral-Pharyngeal dysph., Profound Risk of Aspiration: Severe Risk of Nutritional Compromise: Severe Risk Due To: patient at risk of aspiration on the swallow due to delayed swallow reflex and poor overall pharyngeal movement. Patient as risk of aspiration after the swallow due to significnat pharyngeal residue. Patient at risk of aspiration on all PO textures/trials. - Recommendations NPO: yes, free water - patient may benefit from free water protocol, as aspiration was less with thin liquids than with puree Other Recommendations: No diet recommendations can be made that do not place the patient at high risk of aspiration. Recommend good oral care to reduce risk of aspiration of oral bacteria. Discussed with patient and MD that the patient may need alternative means of nutrition due to severity of swallowing deficits. Patient may benefit from dysphagia therapy once patient is more medically stable. - Time Total Time: 30 Total Timed Minutes: 30
--- NOTE | 2019-11-14 10:43 | RADIOLOGY REPORT (SQ) ---
EXAM DESCRIPTION: COOKIE SWALLOW IMAGES COMPLETED DATE/TIME: 11/14/2019 10:21 am REASON FOR STUDY: coughing, hx of head/neck cancer dysphagia COMPARISON: None. TECHNIQUE: Videofluoroscopic swallowing examination was performed in conjunction with speech patholo gy. Videofluoroscopic imaging was obtained and reviewed and these are the findings: RADIATION DOSE: 1 minutes 55 seconds of fluoroscopy was used. 1 images saved to PACS. LIMITATIONS: None FINDINGS: The patient was brought into the fluoro room and placed upright on a modified barium swall ow chair. The patient was then given multiple consistencies mixed with barium to swallow under live fluoroscopic video guidance. According to the Speech Pathologist there was laryngeal penetration and aspiration of the thin and pudding consistencies. There is aspiration from the post swallow residua l contrast in the Piriforms. IMPRESSION: LARYNGEAL PENETRATION AND ASPIRATION ABOVE. PLEASE SEE SPEECH PATHOLOGIST REPORT FOR OTHER FINDINGS AND RECOMMENDATIONS. COMMENT: Quality ID [id number]: Final reports for procedures using fluoroscopy that document radiation exp osure indices, or exposure time and number of fluorographic images (if radiation exposure indices are not available) TECHNICAL DOCUMENTATION: JOB ID: [id number] 2010 [employer]- All Rights Reserved Reading location - IP/workstation name: [email or web address]
[2019-11-14 14:08] LABS: ABSOLUTE LYMPHOCYTES (AUTO) 0.2 10^3/uL (0.5-4.7); EOSINOPHILS % (AUTO) 17.6 % (0-6); HEMATOCRIT 21.7 % (37.9-51.0); LYMPHOCYTES % (AUTO) 60.4 % (13-45); MEAN CORPUSCULAR HEMOGLOBIN 35.3 pg (27.0-33.4); MEAN CORPUSCULAR HGB CONC 36.6 g/dL (32.0-36.0); MEAN CORPUSCULAR VOLUME 97 fl (80-97); MONOCYTES % (AUTO) 13.1 % (3-13); RED BLOOD COUNT 2.25 10^6/uL (4.35-5.55); SEGMENTED NEUTROPHILS % (AUTO) 8.9 % (42-78); TOTAL CELLS COUNTED % (AUTO) 100 %
[2019-11-14 14:35] LABS: PLATELET COUNT 30 10^3/uL (150-450); WHITE BLOOD COUNT 0.3 10^3/uL (4.0-10.5)
[2019-11-14 14:46] LABS: ANISOCYTOSIS 1+; OVALOCYTES SLIGHT; PLATELET COMMENT DECREASED; POIKILOCYTOSIS SLIGHT
--- NOTE | 2019-11-14 16:50 | PDOC PROGRESS REPORT ---
Subjective Progress Note for:: 11/14/19 Subjective:: No adverse events overnight. Still having episodic fevers. Remains neutropenic. Had a modified barium swallow study today and aspirated all consistencies. Speech therapy was recommending n.p.o. for his safety. Reason For Visit: HEMOPTYSIS Physical Exam Vital Signs: Temp Pulse Resp BP Pulse Ox 103.0 F H 92 17 143/55 H 100 11/14/19 15:46 11/14/19 15:46 11/14/19 15:46 11/14/19 15:46 11/14/19 15:46 Intake & Output 11/13/19 11/14/19 11/15/19 06:59 06:59 06:59 Intake Total 2048 1240 100 Output Total 1595 2050 Balance 453 -810 100 Weight 75.7 kg 74.7 kg General appearance: PRESENT: no acute distress, cooperative, disheveled Respiratory exam: PRESENT: clear to auscultation june, symmetrical, unlabored. ABSENT: accessory muscle use, chest wall tenderness, crackles, prolonged expiratory phas, retraction, rhonchi, tachypnea, wheezes Cardiovascular exam: PRESENT: RRR, +S1, +S2 Pulses: PRESENT: normal carotid pulses Vascular exam: PRESENT: normal capillary refill GI/Abdominal exam: PRESENT: normal bowel sounds, soft. ABSENT: distended, guarding, rebound, tenderness Extremities exam: ABSENT: clubbing, pedal edema Musculoskeletal exam: PRESENT: normal inspection. ABSENT: deformity Neurological exam: PRESENT: alert, awake, oriented to person, oriented to place, oriented to situation Psychiatric exam: PRESENT: appropriate affect, normal mood Skin exam: PRESENT: dry, warm Results Laboratory Results: 11/14/19 13:43 11/12/19 17:42 11/14/19 13:43 WBC 0.3 L* RBC 2.25 L Hgb 8.0 L Hct 21.7 L MCV 97 MCH 35.3 H MCHC 36.6 H RDW 17.0 H Plt Count 30 L* Seg Neutrophils % 8.9 L Impressions: Abdomen/Pelvis CT 11/10/19 00:00 IMPRESSION: NO SIGNIFICANT OR ACUTE FINDING IN THE ABDOMEN OR PELVIS ON CT SCAN WITH IV CONTRAST. Chest CT 11/10/19 00:00 IMPRESSION: 1. 1 CM NODULE IN THE LEFT LOWER LOBE. IF THE PATIENT HAS HAD PREVIOUS CHEST CT AT ANOTHER FACILITY, THEN RECOMMEND COMPARISON. IF NO PRIOR STUDIES, THEN MAY CONSIDER PET SCAN. 2. NO OTHER SIGNIFICANT FINDINGS IN THE CHEST. Chest X-Ray 11/10/19 12:48 IMPRESSION: NO ACUTE RADIOGRAPHIC FINDING IN THE CHEST. Upper Extremity CT 11/11/19 00:00 IMPRESSION: No evidence of abscess or osteomyelitis. Modified Barium Swallow 11/14/19 00:00 IMPRESSION: LARYNGEAL PENETRATION AND ASPIRATION ABOVE. PLEASE SEE SPEECH PATHOLOGIST REPORT FOR OTHER FINDINGS AND RECOMMENDATIONS. Assessment and Plan - Diagnosis (1) Pseudomonas pneumonia Qualifiers: Laterality: unspecified laterality Lung location: unspecified part of lung Qualified Code(s): J15.1 - Pneumonia due to Pseudomonas Is this a current diagnosis for this admission?: Yes Plan: He grew a pansensitive Pseudomonas out of his sputum culture. Currently on cefepime. I would like to switch him over to fluoroquinolone but apparently he has had a very bad reaction to Levaquin in the past. 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 He will remain on cefepime until he is afebrile for 48 hours with an absolute neutrophil count greater than 500. (5) Pseudomonal bacteremia Is this a current diagnosis for this admission?: Yes Plan: Secondary to his Pseudomonas pneumonia. On cefepime as noted above. - Time Time Spent with patient: 15-24 minutes
[2019-11-14] MEDS: INSULIN GLARGINE,HUM.REC.ANLOG 1,000 UNIT/10 ML VIAL SUBCUT SCH (18:46)
[2019-11-14] MEDS: OLANZAPINE 5 MG TABLET PO SCH (21:38)
[2019-11-14] MEDS: SERTRALINE HCL 50 MG TABLET PO SCH (21:39)
[2019-11-15] MEDS: CEFEPIME HCL 2 GM in DEXTROSE 5%-WATER 50 ML IV SCH ×2 (05:06→13:54)
[2019-11-15 05:09] LABS: ABSOLUTE LYMPHOCYTES (AUTO) 0.2 10^3/uL (0.5-4.7); EOSINOPHILS % (AUTO) 12.8 % (0-6); HEMATOCRIT 19.7 % (37.9-51.0); LYMPHOCYTES % (AUTO) 69.1 % (13-45); MEAN CORPUSCULAR HEMOGLOBIN 36.2 pg (27.0-33.4); MEAN CORPUSCULAR HGB CONC 36.9 g/dL (32.0-36.0); MEAN CORPUSCULAR VOLUME 98 fl (80-97); MONOCYTES % (AUTO) 9.9 % (3-13); RED BLOOD COUNT 2.01 10^6/uL (4.35-5.55); SEGMENTED NEUTROPHILS % (AUTO) 8.2 % (42-78); TOTAL CELLS COUNTED % (AUTO) 100 %
[2019-11-15 05:35] LABS: ANISOCYTOSIS 2+; PLATELET COMMENT DECREASED; POIKILOCYTOSIS SLIGHT; TEAR DROP CELLS SLIGHT
[2019-11-15 05:36] LABS: WHITE BLOOD COUNT 0.2 10^3/uL (4.0-10.5)
[2019-11-15 05:39] LABS: HEMOGLOBIN 7.3 g/dL (13.5-17.0); PLATELET COUNT 25 10^3/uL (150-450)
[2019-11-15] MEDS: INSULIN LISPRO 100 UNIT/ML 3 ML VIAL SUBCUT SCH ×6 (07:39→17:24)
--- NOTE | 2019-11-15 08:24 | PDOC PROGRESS REPORT ---
Subjective Progress Note for:: 11/15/19 Subjective:: Had long discussion w/ pt's leukemia physician at [facility], Dr. Coffey. He felt the pancytopenia maybe more related to drug effect, specifically the Venetoclax that the pt was on prior to admit. We stopped the drug b/c of cytopenias about 7 days prior to admit. So he felt we should give the pt more time to recover prior to considering comfort measures. Of note, since pt has failed all swallow eval, he needs nutrition source. PEG placement would be risky in pancytopenic situation so Dofhoff placement would be needed. Discussed all of these issues w/ Dr. Mckinley who will discuss w/ pt, family and make arrangements. Reason For Visit: HEMOPTYSIS Physical Exam Vital Signs: Temp Pulse Resp BP Pulse Ox 99.3 F 79 18 121/38 L 97 11/15/19 00:00 11/15/19 00:00 11/15/19 00:00 11/15/19 00:00 11/15/19 00:00 Intake & Output 11/14/19 11/15/19 11/16/19 06:59 06:59 06:59 Intake Total 1240 250 Output Total 2050 300 Balance -810 -50 Weight 74.7 kg 73.4 kg Results Laboratory Results: 11/15/19 04:22 11/12/19 17:42 11/14/19 11/15/19 13:43 04:22 WBC 0.3 L* 0.2 L* RBC 2.25 L 2.01 L Hgb 8.0 L 7.3 L Hct 21.7 L 19.7 L MCV 97 98 H MCH 35.3 H 36.2 H MCHC 36.6 H 36.9 H RDW 17.0 H 17.0 H Plt Count 30 L* 25 L* Seg Neutrophils % 8.9 L 8.2 L Impressions: Abdomen/Pelvis CT 11/10/19 00:00 IMPRESSION: NO SIGNIFICANT OR ACUTE FINDING IN THE ABDOMEN OR PELVIS ON CT SCAN WITH IV CONTRAST. Chest CT 11/10/19 00:00 IMPRESSION: 1. 1 CM NODULE IN THE LEFT LOWER LOBE. IF THE PATIENT HAS HAD PREVIOUS CHEST CT AT ANOTHER FACILITY, THEN RECOMMEND COMPARISON. IF NO PRIOR STUDIES, THEN MAY CONSIDER PET SCAN. 2. NO OTHER SIGNIFICANT FINDINGS IN THE CHEST. Chest X-Ray 11/10/19 12:48 IMPRESSION: NO ACUTE RADIOGRAPHIC FINDING IN THE CHEST. Upper Extremity CT 11/11/19 00:00 IMPRESSION: No evidence of abscess or osteomyelitis. Modified Barium Swallow 11/14/19 00:00 IMPRESSION: LARYNGEAL PENETRATION AND ASPIRATION ABOVE. PLEASE SEE SPEECH PATHOLOGIST REPORT FOR OTHER FINDINGS AND RECOMMENDATIONS. 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 He maybe admitted for a good portion of that time as we await count recovery. (3) Pancytopenia Is this a current diagnosis for this admission?: Yes Plan: Cont monitoring, blood tx if ct <7, plt ct <10 need transfusion. If pt actively bleeding, will need plt transfusion also (4) Dysphagia Qualifiers: Dysphagia type: oropharyngeal phase Qualified Code(s): R13.12 - Dysphagia, oropharyngeal phase Is this a current diagnosis for this admission?: Yes Plan: Consider dophoff placement (5) Physical deconditioning Is this a current diagnosis for this admission?: Yes Plan: PT eval pt earlier in week and felt pt had good strength but as this hospitalization goes on, we will need reeval b/c pt will probably get weaker. - Time Time Spent with patient: 15-24 minutes
[2019-11-15] MEDS: DOCUSATE SODIUM 100 MG CAPSULE PO SCH (09:36)
[2019-11-15] MEDS: FILGRASTIM INJ 300 MCG/1 ML VIAL SUBCUT SCH (09:36)
[2019-11-15] MEDS: VALACYCLOVIR HCL 500 MG TABLET PO SCH (09:36)
[2019-11-15] MEDS ORDERED: GLUCAGON,HUMAN RECOMB 1 MG INJ SUBCUT PRN (11:36)
[2019-11-15] MEDS ORDERED: DEXTROSE 50%-WATER 25 GM/50 ML DISP.SYRIN IV PRN ×2 (11:36)
[2019-11-15] MEDS ORDERED: DEXTROSE 40% GEL 15 GM TUBE PO PRN ×2 (11:36)
--- NOTE | 2019-11-15 12:16 | RADIOLOGY REPORT (SQ) ---
EXAM DESCRIPTION: INTRO/GI TUBE W/FLUORO; INTRO LONG GI TUBE (MILLAB) COMPLETE DATE/TIME: 11/15/2019 11:26 am REASON FOR STUDY: dysphagia; DYSPHAGIA dysphagia; DYSPHAGIA aspiration, feeding tube for nutrition RADIATION DOSE: 1 minutes 36 seconds of fluoroscopy was used. 1 images saved to PACS. FINDINGS: Please see combined report for performance of procedure and radiologic supervision and int erpretation. The patient was brought to the fluoroscopy room and placed supine on the fluoroscopy table. A NJ-tube was advanced through the left nostril through the stomach and ending in the 4th portion of the duode num. Approximately 22 mL of non ionic contrast was injected through the catheter to confirm placemen t. A fluoroscopic spot film was saved to PACs demonstrating catheter tip within the 3rd to 4th portio n of the duodenum. IMPRESSION: Please see combined report for performance of procedure and radiologic supervision and i nterpretation. Reading location - IP/workstation name: [email or web address]
[2019-11-15] MEDS ORDERED: ONDANSETRON HCL INJ/PF 4 MG/2 ML SDV IV PRN (14:30)
--- NOTE | 2019-11-15 16:26 | PDOC TRANSFER SUMMARY ---
General Admission Date/PCP: 11/10/19 14:46 QUOC SALDANA MD Admission Date: 11/10/19 Transfer Date: 11/15/19 Accepting Facility: [facility] Resuscitation Status: Do Not Intubate - Transfer Diagnosis (1) Pancytopenia Is this a current diagnosis for this admission?: Yes Diagnosis Summary: Thought to be due to to his chemotherapy treatment at this time and not due to his leukemia. Has not responded to Neupogen x4 days. (2) Neutropenic fever Is this a current diagnosis for this admission?: Yes Diagnosis Summary: Pancytopenic, counts have not responded to Neupogen, he has been on cefepime for a Pseudomonas bacteremia secondary to a Pseudomonas pneumonia. Testing for SARS-CoV2 was negative. (3) Acute respiratory failure with hypoxemia Is this a current diagnosis for this admission?: Yes Diagnosis Summary: Now resolved, he had hemoptysis early on and required monitoring overnight in the ICU, thought he would require intubation at one point but fortunately did not need to have that done, has been on room air for the last few days (4) Pseudomonas pneumonia Is this a current diagnosis for this admission?: Yes Diagnosis Summary: He grew a pansensitive Pseudomonas out of his sputum, has been on cefepime because of the severity of his illness but also because he has had a severe reaction to a fluoroquinolone in the past (5) Pseudomonal bacteremia Is this a current diagnosis for this admission?: Yes Diagnosis Summary: Secondary to his Pseudomonas pneumonia, repeat blood cultures have been negative x48 hours (6) Leukemia Is this a current diagnosis for this admission?: Yes Diagnosis Summary: Has a history of AML, had been on Venetoclax (PO) and azacitadine (IV) Most r ecent dose was 10/23/2019. He was taken off of it at that time because his blood counts were low. He primarily follows with Dr. Coffey at [facility]. (7) Dysphagia Is this a current diagnosis for this admission?: Yes Diagnosis Summary: He had had a PEG tube previously when he had his head and neck cancer, but had been swallowing fine recently. He failed a modified barium swallow with all consistencies. It is primarily felt that this is due to physical deconditioning and weakness. A Dobbhoff tube has been placed to get him started on some tube feeds until he can swallow more safely. (8) History of head and neck cancer Is this a current diagnosis for this admission?: Yes Diagnosis Summary: He had a cancer of the tongue several years ago and completed treatment, including surgery to remove part of the tongue. (9) Hyponatremia Is this a current diagnosis for this admission?: Yes Diagnosis Summary: This is been very mild, he typically runs low, his usual range seems to be about 128-131. - Transfer Medications Home Medications: Olanzapine [Zyprexa] 20 mg PO QHS 02/04/18 Sertraline HCl 100 mg PO QHS 02/04/18 Cefdinir 300 mg PO BID 11/10/19 Insulin Glargine,Hum.rec.anlog [Lantus Insulin 100 Unit/mL Insulin Pen] 8 units IJ QPM 11/10/19 Insulin Lispro [Humalog Kwikpen] 16 unit SQ ASDIR PRN 11/10/19 Valacyclovir HCl [Valacyclovir] 500 mg PO DAILY 11/10/19 Transfer Medications: Current Medications Acetaminophen (Tylenol 325 Mg Tablet) 650 mg PO Q4HP PRN PRN Reason: pain or fever Stop: 12/10/19 15:21 Last Admin: 11/14/19 16:18 Dose: 650 mg Documented by: Albuterol/Ipratropium (Duoneb 3 Ml Ampul) 3 ml NEB RTQ2HP PRN PRN Reason: SHORTNESS OF BREATH Stop: 12/10/19 15:21 Dextrose (Dextrose Inj 50% Syringe (25 Gm/50 Ml)) 12.5 gm IV PRN PRN; Protocol PRN Reason: FOR BG 50-69 IN ALERT PATIENT Stop: 12/10/19 15:59 Dextrose (Dextrose Inj 50% Syringe (25 Gm/50 Ml)) 25 gm IV PRN PRN; Protocol Stop: 12/10/19 15:59 Docusate Sodium (Colace 100 Mg Capsule) 100 mg PO DAILY KATHY Stop: 12/14/19 09:59 Last Admin: 11/15/19 09:36 Dose: 100 mg Documented by: Filgrastim (Neupogen Inj 300 Mcg/1 Ml Vial) 300 mcg SUBCUT DAILY KATHY Stop: 11/19/19 09:59 Last Admin: 11/15/19 09:36 Dose: 300 mcg Documented by: Glucagon (Glucagen Inj 1 Mg Vial) 1 mg IM PRN PRN; Protocol PRN Reason: EVALUATE FOR BG < 70 Stop: 12/10/19 15:59 Glucose (Glutose 40% Gel 15 Gm Tube) 15 gm PO PRN PRN; Protocol PRN Reason: FOR BG 50-69 IN ALERT PATIENT Stop: 12/10/19 15:59 Glucose (Glutose 40% Gel 15 Gm Tube) 30 gm PO PRN PRN; Protocol PRN Reason: FOR BG < 50 IN ALERT PATIENT Stop: 12/10/19 15:59 Cefepime HCl 2 gm/ Dextrose 50 mls @ 100 mls/hr IV Q8 [facility] Stop: 11/17/19 21:59 Last Infusion: 11/15/19 14:24 Dose: Infused Documented by: Insulin Glargine (Lantus Insulin 100 Unit/1 Ml 10 Ml) 12 unit SUBCUT QPM [facility] Stop: 12/14/19 17:59 Last Admin: 11/14/19 18:46 Dose: 12 unit Documented by: Insulin Human Lispro (Humalog Insulin 100 Unit/1 Ml 3 Ml Vial) 0 - 12 unit SUBCUT ACHS [facility]; Protocol Stop: 12/12/19 05:59 Last Admin: 11/15/19 11:52 Dose: Not Given Documented by: Insulin Human Lispro (Humalog Insulin 100 Unit/1 Ml 3 Ml Vial) 4 unit SUBCUT AC [facility] Stop: 12/14/19 10:59 Last Admin: 11/15/19 11:52 Dose: Not Given Documented by: Olanzapine (Zyprexa 5 Mg Tablet) 20 mg PO QHS [facility] Stop: 12/10/19 21:59 Last Admin: 11/14/19 21:38 Dose: 20 mg Documented by: Ondansetron HCl (Zofran Inj/Pf 4 Mg/2 Ml Sdv) 4 mg IV Q4HP PRN PRN Reason: FOR NAUSEA/VOMITING Stop: 12/10/19 15:21 Oxycodone HCl (Oxy-Ir 5 Mg Tablet) 5 mg PO Q6HP PRN PRN Reason: FOR PAIN Stop: 11/17/19 15:50 Sertraline HCl (Zoloft 50 Mg Tablet) 100 mg PO QHS [facility] Stop: 12/10/19 21:59 Last Admin: 11/14/19 21:39 Dose: 100 mg Documented by: Valacyclovir HCl (Valtrex 500 Mg Tablet) 500 mg PO DAILY [facility] Stop: 12/11/19 09:59 Last Admin: 11/15/19 09:36 Dose: 500 mg Documented by: - Allergies Allergies/Adverse Reactions: levofloxacin [From Levaquin] Allergy (Severe, Verified 11/13/19 10:21) Seizures morphine Allergy (Verified 11/10/19 12:57) - Diet/Activity Discharge Diet: Tube Feeding (Comments) Discharge Activity: Energy Conservation, Supervised Activity Hospital Course Hospital Course: He initially came in because of a cough, fever, and positive sputum production. His pancytopenia was known, and he had been taken off of his chemotherapy for AML as noted above prior to his presentation because of the low blood counts. He was empirically started on broad-spectrum antibiotics. He had an episode of impressive hemoptysis and his hemoglobin dropped even more, from 8 down to 6.4. He was given 2 units of packed red blood cells and some platelets. He has not had any further bleeding episodes since that time. He was initially sent to the ICU overnight because it was thought he may need to be intubated, but fortunately he was able to avoid that. He has been out of the ICU for about 3 days now and has been on room air the entire time. He has received Neupogen for 4 days and has had no improvement in any of his blood counts. A sputum specimen was obtained early on in the hospitalization and it showed a pansensitive Pseudomonas pneumonia, which corresponded with a positive blood culture for the same. He has been on cefepime, and repeat blood cultures at time of dictation have been negative for over 48 hours. He continues to have episodic fevers, usually once or twice a day his fever will go as high as 102 Fahrenheit to 103 Fahrenheit. He has tested negative for influenza and SARS-CoV2. He had a history of a head neck cancer, and the tongue, and had a PEG tube at one time, but had recovered and did not need the PEG tube anymore and so he has been eating and drinking fine up until this hospitalization. We did a modified barium swallow and he aspirated all consistencies and speech therapy recommended n.p.o. Patient has persistently low platelets that is high risk of bleeding, so rather than a PEG tube at this time, we successfully placed a Dobbhoff tube for tube feeding. It is thought that this trouble swallowing is likely due to deconditioning. His oncologist Dr. Coffey at [facility] has been and contact regularly with our oncologist Dr. Saldana, and Dr. Nolen offered to take the patient if he was showing no signs of progress. The patient's family also wanted him transferred. I spoke to Dr. Mckeon, the oncology fellow on-call at [facility], with whom I reviewed the case. Dr. Mckeon agreed to accept the patient in transfer. He asked that we test the patient for coronavirus prior to transfer, and we did, and the results were as noted above. Physical Exam Vital Signs: Temp Pulse Resp BP Pulse Ox 99.3 F 79 18 121/38 L 97 11/15/19 00:00 11/15/19 00:00 11/15/19 00:00 11/15/19 00:00 11/15/19 00:00 Intake & Output 11/14/19 11/15/19 11/16/19 06:59 06:59 06:59 Intake Total 1240 300 110 Output Total 2050 300 200 Balance -810 0 -90 Weight 74.7 kg 73.4 kg 73.4 kg General appearance: PRESENT: no acute distress, cooperative, disheveled Respiratory exam: PRESENT: clear to auscultation june, symmetrical, unlabored. ABSENT: accessory muscle use, chest wall tenderness, crackles, prolonged expiratory phas, retraction, rhonchi, tachypnea, wheezes Cardiovascular exam: PRESENT: RRR, +S1, +S2 Pulses: PRESENT: normal carotid pulses Vascular exam: PRESENT: normal capillary refill GI/Abdominal exam: PRESENT: normal bowel sounds, soft. ABSENT: distended, guarding, rebound, tenderness Extremities exam: ABSENT: clubbing, pedal edema Musculoskeletal exam: PRESENT: normal inspection. ABSENT: deformity Neurological exam: PRESENT: alert, awake, oriented to person, oriented to place, oriented to situation Psychiatric exam: PRESENT: appropriate affect, normal mood Skin exam: PRESENT: dry, warm Results Laboratory Results: 11/15/19 04:22 11/12/19 17:42 11/15/19 04:22 WBC 0.2 L* RBC 2.01 L Hgb 7.3 L Hct 19.7 L MCV 98 H MCH 36.2 H MCHC 36.9 H RDW 17.0 H Plt Count 25 L* Seg Neutrophils % 8.2 L 11/10/19 14:05 Blood Blood Culture - Final NO GROWTH IN 5 DAYS Impressions: Abdomen/Pelvis CT 11/10/19 00:00 IMPRESSION: NO SIGNIFICANT OR ACUTE FINDING IN THE ABDOMEN OR PELVIS ON CT SCAN WITH IV CONTRAST. Chest CT 11/10/19 00:00 IMPRESSION: 1. 1 CM NODULE IN THE LEFT LOWER LOBE. IF THE PATIENT HAS HAD PREVIOUS CHEST CT AT ANOTHER FACILITY, THEN RECOMMEND COMPARISON. IF NO PRIOR STUDIES, THEN MAY CONSIDER PET SCAN. 2. NO OTHER SIGNIFICANT FINDINGS IN THE CHEST. Chest X-Ray 11/10/19 12:48 IMPRESSION: NO ACUTE RADIOGRAPHIC FINDING IN THE CHEST. Upper Extremity CT 11/11/19 00:00 IMPRESSION: No evidence of abscess or osteomyelitis. Modified Barium Swallow 11/14/19 00:00 IMPRESSION: LARYNGEAL PENETRATION AND ASPIRATION ABOVE. PLEASE SEE SPEECH PATHOLOGIST REPORT FOR OTHER FINDINGS AND RECOMMENDATIONS. Gastrostomy Tube Placement 11/15/19 00:00 IMPRESSION: Please see combined report for performance of procedure and radiologic supervision and interpretation. Guidance Fluoroscopy 11/15/19 00:00 IMPRESSION: Please see combined report for performance of procedure and radiol ogic supervision and interpretation. Plan Time Spent: Greater than 30 Minutes
[2019-11-15] MEDS ORDERED: POTASSI CL 20 MEQ/D5-1/2NS 1L 1000 ML IV PRN (18:06)
[2019-11-15] MEDS: INSULIN GLARGINE,HUM.REC.ANLOG 1,000 UNIT/10 ML VIAL SUBCUT SCH (18:42)
[2019-11-15 20:23] VITALS: BP 117/55
== END 2019-11-15 20:35 | disposition short-term general hospital (02) | DRG 808 ==
LOC: ER 12:28 → EH 14:46 → 4N 16:15 → ICU 11-11 15:38 → 4N 11-13 00:11
PROVIDERS: ADMIT Internal Medicine; ATTEND Family Medicine
PROC: 30233R1 Transfusion of Nonautologous Platelets into Peripheral Vein, Percutaneous Approach (ICD-10-PCS; 2019-11-10)
PROC: 30233R1 Transfusion of Nonautologous Platelets into Peripheral Vein, Percutaneous Approach (ICD-10-PCS; 2019-11-11)
PROC: 30233N1 Transfusion of Nonautologous Red Blood Cells into Peripheral Vein, Percutaneous Approach (ICD-10-PCS; 2019-11-11)
PROC: 0DH67UZ Insertion of Feeding Device into Stomach, Via Natural or Artificial Opening (ICD-10-PCS; principal; 2019-11-15)
DX: D61.810 Antineoplastic chemotherapy induced pancytopenia (principal); J15.1 Pneumonia due to Pseudomonas; J96.01 Acute respiratory failure with hypoxia; C92.62 Acute myeloid leukemia with 11q23-abnormality in relapse; C92.02 Acute myeloblastic leukemia, in relapse; C92.A2 Acute myeloid leukemia with multilineage dysplasia, in relapse; R78.81 Bacteremia; R04.2 Hemoptysis; E87.1 Hypo-osmolality and hyponatremia; L02.414 Cutaneous abscess of left upper limb; R13.10 Dysphagia, unspecified; I10 Essential (primary) hypertension; E11.9 Type 2 diabetes mellitus without complications; F31.9 Bipolar disorder, unspecified; F43.10 Post-traumatic stress disorder, unspecified; M19.90 Unspecified osteoarthritis, unspecified site; R50.81 Fever presenting with conditions classified elsewhere; B96.5 Pseudomonas (aeruginosa) (mallei) (pseudomallei) as the cause of diseases classified elsewhere; E87.6 Hypokalemia; Z85.89 Personal history of malignant neoplasm of other organs and systems; Z79.4 Long term (current) use of insulin; Z79.899 Other long term (current) drug therapy; Z88.6 Allergy status to analgesic agent; Z88.1 Allergy status to other antibiotic agents; Z87.01 Personal history of pneumonia (recurrent); Z87.891 Personal history of nicotine dependence; Z83.3 Family history of diabetes mellitus; Z82.49 Family history of ischemic heart disease and other diseases of the circulatory system; Z86.73 Personal history of transient ischemic attack (TIA), and cerebral infarction without residual deficits
CPT/HCPCS: 36415; 36430; 44500; 71045; 71260; 74177; 74230; 74340; 80053; 80202; 81001; 82803; 82962; 83605; 83690; 83735; 84145; 85025; 85610; 86850; 86900; 86901; 86920; 87040; 87070; 87077; 87150; 87186; 87205; 87635; 87804; 96361; 96365; 99285; 99291; J0692; J0696; J1442; J1815; J3370; J3480; J7060; J7120; P9016; P9035

== ENCOUNTER → 2020-02-13 | Outpatient (CLI) | payer MEDICARE ==
--- NOTE | 2020-02-13 12:42 | RADIOLOGY REPORT (SQ) ---
EXAM DESCRIPTION: CHEST 2 VIEWS IMAGES COMPLETED DATE/TIME: 02/13/2020 11:57 am REASON FOR STUDY: R05 COUGH COMPARISON: 11/10/2019 EXAM PARAMETERS: NUMBER OF VIEWS: two views TECHNIQUE: Digital Frontal and Lateral radiographic views of the chest acquired. RADIATION DOSE: NA LIMITATIONS: none FINDINGS: LUNGS AND PLEURA: No opacities, masses or pneumothorax. No pleural effusion. MEDIASTINUM AND HILAR STRUCTURES: No masses or contour abnormalities. HEART AND VASCULAR STRUCTURES: Heart normal size. No evidence for failure. BONES: No acute findings. HARDWARE: None in the chest. OTHER: No other significant finding. IMPRESSION: NO ACUTE RADIOGRAPHIC FINDING IN THE CHEST. TECHNICAL DOCUMENTATION: JOB ID: [id number] 2010 [email or web address]- All Rights Reserved Reading location - IP/workstation name: [email or web address]
== END ==
LOC: RAD 11:42
PROVIDERS: ATTEND Internal Medicine
DX: R05 Cough (principal)
CPT/HCPCS: 71046